=== PATIENT | male | born 1995 | race Caucasian/White ===

== ENCOUNTER 2016-10-09 00:05 | Emergency (ER) | payer BC ==
[~2016-10-09] VITALS: Ht 188 cm; Wt 131.4 kg
[2016-10-09 00:07] VITALS: TEMP 36.8; Ht 188 cm; Wt 131.4 kg
[2016-10-09] MEDS ORDERED: DiphenhydrAMINE HCL 50 MG/ML VIAL IV STA (00:26)
[2016-10-09] MEDS ORDERED: KETOROLAC TROMETHAMINE 30 MG/ML VIAL IV STA (00:26)
[2016-10-09] MEDS ORDERED: METOCLOPRAMIDE HCL INJ 5 MG/ML 2 ML VIAL IV STA (00:26)
[2016-10-09 00:44] VITALS: O2SAT 96
[2016-10-09 00:50] LABS: BASO % 0.3 %; BASO ABS # 0.02 K/uL (0-0.2); COMPLETE YES; EOS % 3.4 %; HEMATOCRIT 43.6 % (42-52); IG% 0.3 %; LYMPH % 34.8 %; LYMPH ABS # 2.07 K/uL (1.2-3.4); MEAN CELL VOLUME 83.2 fL (80-100); MEAN PLATELET VOLUME 9.5 fL (7.4-10.4); MONO % 9.6 %; NEUT % 51.6 %; PLATELET COUNT 199 K/uL (130-400); RED BLOOD COUNT 5.24 M/uL (4.7-6.1); WHITE BLOOD COUNT 5.94 K/uL (4.8-10.8)
[2016-10-09 01:07] LABS: BUN/CREATININE RATIO 20.8 (10-20); CALCIUM 8.5 mg/dl (8.5-10.1); CREATININE 0.81 mg/dl (0.60-1.40); MAGNESIUM 2.1 mg/dl (1.8-2.4)
[2016-10-09 01:18] LABS: THYROID STIMULATING HORMONE 3.24 uIu/ml (0.300-4.500)
[2016-10-09] MEDS ORDERED: BUSP-8 PO (01:34)
[2016-10-09 01:50] LABS: LYME DISEASE AB IGG NEG (NEG); LYME DISEASE AB IGM NEG (NEG)
--- NOTE | 2016-10-09 02:08 | EMERGENCY ROOM VISIT NOTE ---
History First contact with patient: 00:11 Chief Complaint: BACK PAIN Stated Complaint: BACK PAIN History of Present Illness The patient is a 21 year old male who presents to the Emergency Room with complaints of mid to low back pain for the past several days described as aching , ranging in severity 8 out of 10 that is worse with movement and better with rest. 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 This is found incidentally on MRI when he was a child. Patient also complains of intermittent right arm and left arm tingling and weakness for the past several weeks. Patient states he was walking at work and his arm went weak and he went into the wall. This lasted briefly. This happened a few times. Patient has no numbness or tingling currently. Patient denies chest pain, dyspnea, fever, chills, cough, congestion, nausea, vomiting, diarrhea, radiating pain, IV drug abuse, tick bites, weight loss, night sweats, joint pains, rashes. He is tolerating by mouth fluids and food. Review of Systems See HPI for pertinent positives & negatives. A total of 10 systems reviewed and were otherwise negative. Past Medical/Surgical History Reflex sympathetic dystrophy Social History Smoking Status: Former Smoker Alcohol Use: none Drug Use: none Marital Status: in relationship Housing Status: lives with significant other Occupation Status: employed Current/Historical Medications Scheduled PRN Buspirone Hcl (Buspirone Hcl), 1 TAB PO TID PRN for Anxiety Allergies Coded Allergies: No Known Allergies (Verified , 10/09/16) Physical Exam Vital Signs Date Time Temp Pulse Resp B/P Pulse Ox O2 Delivery O2 Flow Rate FiO2 10/09/16 00:44 96 Room Air 10/09/16 00:42 52 10/09/16 00:34 97 Room Air 10/09/16 00:07 36.8 58 18 132/68 95 Room Air Physical Exam VITALS: Vitals are noted on the nurse's note and reviewed by myself. Vital signs stable. GENERAL: Pleasant male ambulate without difficulties, in no acute distress, nondiaphoretic, well-developed well-nourished. SKIN: The skin was without rashes, erythema, edema, or bruising. There is no tenting of the skin. Capillary reflex less than 2 seconds. HEAD: Normocephalic atraumatic. EARS: External auditory canals clear, tympanic membranes pearly fernandez without erythema or effusion bilaterally. EYES: Pupils equal round and reactive to light and accommodation. Conjunctivae without injection, sclerae without icterus. Extraocular movements intact. NOSE: Patent, turbinates without inflammation or discharge. MOUTH: Mucous membranes moist. Pharynx without erythema or exudate. Uvula midline. Airway patent. Tongue does not deviate. NECK: Supple without nuchal rigidity. No lymphadenopathy. No thyromegaly. Cervical spine is nontender. No JVD. HEART: Regular rate and rhythm without murmurs gallops or rubs. LUNGS: Clear to auscultation bilaterally without wheezes, rales or rhonchi. No dullness to percussion. No retractions or accessory muscle use. ABDOMEN: Positive bowel sounds x 4. Normal tympanic percussion. Soft, nontender, without masses or organomegaly. Clancy sign negative. No guarding or rebound tenderness. MUSCULOSKELETAL: No muscle atrophy, erythema, or edema noted. 5 out of 5 strength throughout, minimal diffuse thoracic and lumbar tenderness on exam without step-offs. Negative straight leg raise bilaterally. Patient can walk on toes and heels. NEURO: Patient was alert and oriented to person place and time. Normal sensation to light and sharp touch. No focal neurological deficits. Cranial nerves II through XII grossly intact. No pronator drift. Cerebellar exam intact. +2 patellar reflexes bilaterally. Medical Decision & Procedures Laboratory Results 10/09/16 00:40 Red Blood Count 5.24, Mean Corpuscular Volume 83.2, Mean Corpuscular Hemoglobin 30.0, Mean Corpuscular Hemoglobin Concent 36.0, Mean Platelet Volume 9.5, Neutrophils (%) (Auto) 51.6, Lymphocytes (%) (Auto) 34.8, Monocytes (%) (Auto) 9.6, Eosinophils (%) (Auto) 3.4, Basophils (%) (Auto) 0.3, Neutrophils # (Auto) 3.06, Lymphocytes # (Auto) 2.07, Monocytes # (Auto) 0.57, Eosinophils # (Auto) 0.20, Basophils # (Auto) 0.02 10/09/16 00:40 Test 10/09/16 00:40 White Blood Count 5.94 K/uL (4.8-10.8) Red Blood Count 5.24 M/uL (4.7-6.1) Hemoglobin 15.7 g/dL (14.0-18.0) Hematocrit 43.6 % (42-52) Mean Corpuscular Volume 83.2 fL (80-100) Mean Corpuscular Hemoglobin 30.0 pg (25-34) Mean Corpuscular Hemoglobin Concent 36.0 g/dl (32-36) Platelet Count 199 K/uL (130-400) Mean Platelet Volume 9.5 fL (7.4-10.4) Neutrophils (%) (Auto) 51.6 % Lymphocytes (%) (Auto) 34.8 % Monocytes (%) (Auto) 9.6 % Eosinophils (%) (Auto) 3.4 % Basophils (%) (Auto) 0.3 % Neutrophils # (Auto) 3.06 K/uL (1.4-6.5) Lymphocytes # (Auto) 2.07 K/uL (1.2-3.4) Monocytes # (Auto) 0.57 K/uL (0.11-0.59) Eosinophils # (Auto) 0.20 K/uL (0-0.5) Basophils # (Auto) 0.02 K/uL (0-0.2) RDW Standard Deviation 39.7 fL (36.4-46.3) RDW Coefficient of Variation 13.2 % (11.5-14.5) Immature Granulocyte % (Auto) 0.3 % Immature Granulocyte # (Auto) 0.02 K/uL (0.00-0.02) Anion Gap 8.0 mmol/L (3-11) Est Creatinine Clear Calc Drug Dose 206.2 ml/min Estimated GFR () 146.2 Estimated GFR (Non- 126.2 BUN/Creatinine Ratio 20.8 (10-20) Calcium Level 8.5 mg/dl (8.5-10.1) Magnesium Level 2.1 mg/dl (1.8-2.4) Total Bilirubin 0.5 mg/dl (0.2-1) Direct Bilirubin 0.1 mg/dl (0-0.2) Aspartate Amino Transf (AST/SGOT) 26 U/L (15-37) Alanine Aminotransferase (ALT/SGPT) 64 U/L (12-78) Alkaline Phosphatase 90 U/L (45-117) Total Protein 7.0 gm/dl (6.4-8.2) Albumin 4.0 gm/dl (3.4-5.0) Thyroid Stimulating Hormone (TSH) 3.240 uIu/ml (0.300-4.500) Lyme Disease IgG Antibody NEG (NEG) Lyme Disease IgM Antibody NEG (NEG) Medications Administered Medications (Trade) Dose Ordered Sig/Dexter Route Start Time Stop Time Status Last Admin Dose Admin Ketorolac Tromethamine (Toradol Inj) 30 mg NOW STAT IV 10/09/16 00:26 10/09/16 00:30 DC 10/09/16 00:46 30 MG Diphenhydramine HCl (Benadryl Inj) 25 mg NOW STAT IV 10/09/16 00:26 10/09/16 00:30 DC 10/09/16 00:46 25 MG Metoclopramide HCl (Reglan Inj) 10 mg NOW STAT IV 10/09/16 00:26 10/09/16 00:30 DC 10/09/16 00:46 10 MG ED Course Prior records/ancillary studies reviewed and summarized above. Nursing notes reviewed. Additional history obtained from [facility]. The patient's history was concerning for back pain and intermittent tingling. Differential diagnosis: Etiologies such as conus medullaris syndrome, cauda equina syndrome, epidural abscess, epidural hematoma, fracture, subluxation, UTI, pyelonephritis, strain, muscular spasm, metabolic, infection, hypo/hyperglycemia, electrolyte abnormalities, cardiac sources, intracerebral event, toxicologic, neurologic, as well as others were entertained. Physical examination: As above. ER treatment provided: IV Lock Toradol, Reglan, Benadryl On reassessment the patient felt better. Diagnostics interpretation by me: The labs revealed mild hyperglycemia without DKA. Euthyroid Imaging studies: CT T SPINE: No evidence of acute or healing fracture or malalignment. No suspicious lytic or sclerotic lesions of bone. No critical central canal stenosis CT L SPINE: No acute or healing fracture or malalignment. No critical central canal stenosis. No suspicious lytic or sclerotic lesions of bone. Radiologist: Kev Garcia M.D. CT HEAD: No ICH, mass effect or edema. No evidence of acute cortical stroke. No midline shift or hydrocephalus. Visualized sinuses show scattered mucosal thickening and mastoid air cells are clear. Radiologist: Kev Garcia M.D. Exam and history seem consistent with back strain and intermittent tingling. Patient had unremarkable workup as above. He was neurovascularly and neurologically intact. He was ambulating without difficulties. He was advised to follow-up family care in a few days and was given a list of family care doctors for further evaluation and treatment for his ongoing symptoms. He was advised to return to the ER immediately for inability to walk, severe pain, fevers, worsening signs or symptoms or as needed. By the evaluation outlined above emergent etiologies such as infection, electrolyte abnormalities, cardiac sources, intracerebral event, toxologic, neurologic, abnormalities blood glucose, metabolic, as well as others were deemed relatively unlikely. The pt informed about the findings as listed above. All questions were answered and pleased with the treatment. Return instructions were outlined and the patient was discharged in stable condition. Outpatient prescription management: motrin Referral: The patient was referred back to primary care physician for follow-up in 2 to 3 days for a recheck of the current condition. Case reviewed with my attending Medical Decision As above Impression Primary Impression: Hyperglycemia Additional Impression: Tingling Departure Information Dispostion Home / Self-Care Condition GOOD Referrals No Doctor, Assigned (PCP) Patient Instructions My [facility] Additional Instructions Your blood sugar was slightly elevated today. Recheck this with your family care. Discharge comes back painDO NOT drive, drink alcohol, operate machinery, or perform dangerous activities today. You were given medications in the ER that can affect your ability to safely function or operate a vehicle. Ibuprofen(Motrin, Advil) may be used for fever or pain. Use 600mg every six hours as needed. Take with food. Avoid using more than 2400mg in a 24 hour period. Do not use 2400mg per day for more than three consecutive days without physician direction. Prolonged inappropriate use can lead to stomach upset or ulcers. This medication can be taken if you need to drive, work, or perform activities which may be dangerous when taking narcotic pain medication. (AND/OR) Acetaminophen(Tylenol) may be used for fever or pain. Use 1000mg every six hours as needed. Avoid using more than 3000mg in a 24 hour period. This medication can be taken if you need to drive, work, or perform activities which may be dangerous when taking narcotic pain medication. Rest and avoid heavy lifting until your symptoms resolve and then gradually return to full activity. A good rule of thumb is if it hurts your back to perform a certain activity, then it should be avoided until you are healthy again. A heating pad, warm compresses, or a hot shower may help with tight muscles and can be done several times a day as needed. Continue current medications. Return to the ER immediately for any numbness, tingling, severe pain, loss of control of your bowels or bladder, inability to walk, or as needed. Follow up with your primary care physician/orthopedics spine within 3-5 days for a recheck of your current condition. Problem Qualifiers
[2016-10-09] MEDS ORDERED: MOTRIN HOME PACK 600 MG (4)BTL PO ONE (02:15)
[2016-10-09 02:33] VITALS: BP 139/66; PULSE 61; O2SAT 95
--- NOTE | 2016-10-09 06:33 | DIAGNOSTIC IMAGING REPORT ---
HEAD CT NONCONTRAST CT DOSE: 537.48 mGy.cm HISTORY: Neuropathy intermittent arm tingling TECHNIQUE: Multiaxial CT images of the head were performed without the use of intravenous contrast. Comparison: None. Findings: The paranasal sinuses and mastoid air cells are clear. The calvarium and skull base are intact. The ventricles and sulci are within normal limits. There is no mass, hematoma, midline shift, or acute infarct. Impression: No acute intracranial abnormality. Electronically signed by: Robbin Todd M.D. 10/09/2016 6:32 AM Dictated Date/Time: 10/09/2016 6:32 AM
--- NOTE | 2016-10-09 06:34 | DIAGNOSTIC IMAGING REPORT ---
LUMBAR SPINE CT CT DOSE: 2990.79 mGy.cm HISTORY: Pain mid/low back pain TECHNIQUE: Multiaxial CT images of the lumbar spine were performed and reformatted in the sagittal and coronal plane without the use of contrast. COMPARISON: None. FINDINGS: No fractures. No subluxation. Paraspinal soft tissues are unremarkable. IMPRESSION: No fractures within the lumbar spine. Electronically signed by: Robbin Todd M.D. 10/09/2016 6:33 AM Dictated Date/Time: 10/09/2016 6:33 AM
--- NOTE | 2016-10-09 07:04 | DIAGNOSTIC IMAGING REPORT ---
THORACIC SPINE CT CT DOSE: HISTORY: Pain mid/low back pain TECHNIQUE: Multiaxial CT images of the thoracic spine were performed and reformatted in the sagittal and coronal plane without the use of contrast. COMPARISON: None. FINDINGS: No fractures. No subluxation. Paraspinal soft tissues are unremarkable. IMPRESSION: No fractures within the thoracic spine. Electronically signed by: Robbin Todd M.D. 10/09/2016 7:02 AM Dictated Date/Time: 10/09/2016 6:59 AM
== END 2016-10-09 02:34 | disposition home or self-care (01) ==
LOC: C.EDB 00:06
DX: R73.9 Hyperglycemia, unspecified (principal); R20.2 Paresthesia of skin; G90.50 Complex regional pain syndrome I, unspecified; Z87.891 Personal history of nicotine dependence

== ENCOUNTER 2016-10-24 22:03 | Emergency (ER) | payer BC ==
[~2016-10-24] VITALS: Ht 188 cm; Wt 128.6 kg
[~2016-10-24 22:03] MED LIST: BUSP-8 PO
[2016-10-24 22:06] VITALS: TEMP 36.7; Ht 188 cm; Wt 128.6 kg
[2016-10-24] MEDS ORDERED: KETOROLAC TROMETHAMINE 30 MG/ML VIAL IV STA (22:17)
[2016-10-24 22:28] VITALS: O2SAT 94
[2016-10-24] MEDS ORDERED: BUSP-8 PO (22:30)
[2016-10-24 22:38] LABS: BASO % 0.3 %; BASO ABS # 0.02 K/uL (0-0.2); COMPLETE YES; EOS % 2.4 %; HEMATOCRIT 41.9 % (42-52); IG% 0.2 %; LYMPH % 28.4 %; LYMPH ABS # 1.78 K/uL (1.2-3.4); MEAN CELL VOLUME 81.5 fL (80-100); MEAN CORPUSCULAR HEMOGLOBIN 29.6 pg (25-34); MEAN CORPUSCULAR HGB CONC 36.3 g/dl (32-36); MEAN PLATELET VOLUME 9.2 fL (7.4-10.4); MONO % 6.5 %; NEUT % 62.2 %; PLATELET COUNT 199 K/uL (130-400); RED BLOOD COUNT 5.14 M/uL (4.7-6.1); WHITE BLOOD COUNT 6.27 K/uL (4.8-10.8)
[2016-10-24 23:04] LABS: ALT/SGPT 55 U/L (12-78); AST/SGOT 29 U/L (15-37); BLOOD UREA NITROGEN 13 mg/dl (7-18); BUN/CREATININE RATIO 14.8 (10-20); C-REACTIVE PROTEIN < 0.29 mg/dl (0-0.29); CALCIUM 8.3 mg/dl (8.5-10.1); CARBON DIOXIDE 26 mmol/L (21-32); CHLORIDE 108 mmol/L (98-107); CREATININE 0.87 mg/dl (0.60-1.40); GLUCOSE 92 mg/dl (70-99); POTASSIUM 3.8 mmol/L (3.5-5.1); SODIUM 145 mmol/L (136-145); URIC ACID 7.7 mg/dl (2.6-7.2)
[2016-10-24 23:06] LABS: ALB/GLOB RATIO 1.4 (0.9-2); ALKALINE PHOSPHATASE 76 U/L (45-117)
[2016-10-25 00:02] LABS: LYME DISEASE AB IGG NEG (NEG); LYME DISEASE AB IGM NEG (NEG)
[2016-10-25 00:55] VITALS: BP 123/63; PULSE 74; O2SAT 96
--- NOTE | 2016-10-25 05:07 | EMERGENCY ROOM VISIT NOTE ---
History First contact with patient: 22:13 Chief Complaint: KNEEPAIN Stated Complaint: SWELLING,REDNESS,NUMBNESS TENDERNESS PAIN R KNEE History of Present Illness The patient is a 21 year old male who presents to the Emergency Room with complaints of right knee pain and swelling for the past few days who does a lot of kneeling at work. No direct injury to the knee. Patient is concerned he has a blood clot. Patient does chew tobacco. No smoking of cigarettes. No recent travel. Patient denies chest pain, dyspnea, fever, chills, numbness, tingling, injury to the area, radiating pain. He is able to ambulate. He describes the pain as aching, ranging in severity 3 out of 10 worse with movement and better with rest. It does not radiate. Review of Systems See HPI for pertinent positives & negatives. A total of 10 systems reviewed and were otherwise negative. Past Medical/Surgical History Diabetes Social History Smoking Status: Former Smoker Alcohol Use: none Drug Use: none Marital Status: in relationship Housing Status: lives with significant other Occupation Status: employed Current/Historical Medications Scheduled Buspirone Hcl (Buspirone Hcl), 10 MG PO BID Allergies Coded Allergies: No Known Allergies (Verified , 10/24/16) Physical Exam Vital Signs Date Time Temp Pulse Resp B/P Pulse Ox O2 Delivery O2 Flow Rate FiO2 10/25/16 00:55 74 20 123/63 96 10/24/16 23:42 63 18 107/59 95 Room Air 10/24/16 22:33 72 10/24/16 22:28 94 Room Air 10/24/16 22:06 36.7 77 16 135/70 97 Room Air Pain Rating (0-10): 3.0 Physical Exam VITALS: Vitals are noted on the nurse's note and reviewed by myself. Vital signs stable. GENERAL: Pleasant male, in no acute distress, nondiaphoretic, well-developed well-nourished. SKIN: Capillary reflex less than 2 seconds. HEENT: Normocephalic. PERRLA. EOMI. Nares patent. Mucous membranes moist. Neck is supple without nuchal rigidity. HEART: Regular rate and rhythm without murmurs gallops or rubs. LUNGS: Clear to auscultation bilaterally without wheezes, rales or rhonchi. No retractions or accessory muscle use. ABDOMEN: Positive bowel sounds x 4. Normal tympanic percussion. Soft, nontender, without masses or organomegaly. Clancy sign negative. No guarding or rebound tenderness. MUSCULOSKELETAL: No gross musculoskeletal defects. No pedal edema. No calf tenderness. Right knee the prepatella bursa erythematous and edematous concerning for bursitis, right knee full range of motion. Negative Colt's. Negative drawer's. No laxity with valgus or varus stressing NEURO: Patient was alert and oriented to person place and time. Normal sensation to light and sharp touch. No focal neurological deficits. Medical Decision & Procedures Laboratory Results 10/24/16 22:30 Red Blood Count 5.14, Mean Corpuscular Volume 81.5, Mean Corpuscular Hemoglobin 29.6, Mean Corpuscular Hemoglobin Concent 36.3, Mean Platelet Volume 9.2, Neutrophils (%) (Auto) 62.2, Lymphocytes (%) (Auto) 28.4, Monocytes (%) (Auto) 6.5, Eosinophils (%) (Auto) 2.4, Basophils (%) (Auto) 0.3, Neutrophils # (Auto) 3.90, Lymphocytes # (Auto) 1.78, Monocytes # (Auto) 0.41, Eosinophils # (Auto) 0.15, Basophils # (Auto) 0.02 10/24/16 22:30 Test 10/24/16 22:30 White Blood Count 6.27 K/uL (4.8-10.8) Red Blood Count 5.14 M/uL (4.7-6.1) Hemoglobin 15.2 g/dL (14.0-18.0) Hematocrit 41.9 % (42-52) Mean Corpuscular Volume 81.5 fL (80-100) Mean Corpuscular Hemoglobin 29.6 pg (25-34) Mean Corpuscular Hemoglobin Concent 36.3 g/dl (32-36) Platelet Count 199 K/uL (130-400) Mean Platelet Volume 9.2 fL (7.4-10.4) Neutrophils (%) (Auto) 62.2 % Lymphocytes (%) (Auto) 28.4 % Monocytes (%) (Auto) 6.5 % Eosinophils (%) (Auto) 2.4 % Basophils (%) (Auto) 0.3 % Neutrophils # (Auto) 3.90 K/uL (1.4-6.5) Lymphocytes # (Auto) 1.78 K/uL (1.2-3.4) Monocytes # (Auto) 0.41 K/uL (0.11-0.59) Eosinophils # (Auto) 0.15 K/uL (0-0.5) Basophils # (Auto) 0.02 K/uL (0-0.2) RDW Standard Deviation 37.6 fL (36.4-46.3) RDW Coefficient of Variation 12.7 % (11.5-14.5) Immature Granulocyte % (Auto) 0.2 % Immature Granulocyte # (Auto) 0.01 K/uL (0.00-0.02) Erythrocyte Sedimentation Rate 2 mm/hr (0-14) Anion Gap 11.0 mmol/L (3-11) Est Creatinine Clear Calc Drug Dose 189.8 ml/min Estimated GFR () 142.0 Estimated GFR (Non- 122.5 BUN/Creatinine Ratio 14.8 (10-20) Uric Acid 7.7 mg/dl (2.6-7.2) Calcium Level 8.3 mg/dl (8.5-10.1) Total Bilirubin 0.5 mg/dl (0.2-1) Aspartate Amino Transf (AST/SGOT) 29 U/L (15-37) Alanine Aminotransferase (ALT/SGPT) 55 U/L (12-78) Alkaline Phosphatase 76 U/L (45-117) C-Reactive Protein < 0.29 mg/dl (0-0.29) Total Protein 6.8 gm/dl (6.4-8.2) Albumin 4.0 gm/dl (3.4-5.0) Globulin 2.8 gm/dl (2.5-4.0) Albumin/Globulin Ratio 1.4 (0.9-2) Lyme Disease IgG Antibody NEG (NEG) Lyme Disease IgM Antibody NEG (NEG) Medications Administered Medications (Trade) Dose Ordered Sig/Dexter Route Start Time Stop Time Status Last Admin Dose Admin Ketorolac Tromethamine (Toradol Inj) 30 mg NOW STAT IV 10/24/16 22:17 10/24/16 22:19 DC 10/24/16 22:31 30 MG ED Course Prior records reviewed and summarized above. Triage Nursing notes reviewed. Additional history obtained from the family. The patient's history was concerning for swelling and pain in the leg. Differential diagnosis: Etiologies such as DVT, lymes, bursitis, strain, sprain, musculoskeletal, infection, joint effusion, trauma, lymphedema, idiopathic, CHF, as well as others were entertained.. Physical examination: The physical examination revealed no signs of infection. Neurovascularly intact. ER treatment provided: Dax wrap, crutches. Neurovascular status is rechecked after placement and is intact On reassessment the patient felt better. Diagnostics interpreted by me: The labs revealed no leukocytosis. Negative Lyme, negative sedimentation rate and CRP Imaging studies: Ultrasound negative for DVT per radiology, knee x-ray with no acute fracture, effusion or dislocation per my interpretation This appears to be consistent with prepatellar bursitis. Patient does a lot of repetitive kneeling. This pain and swelling is localized over this area. He is advised to avoid kneeling on the area and use Dax wrap and crutches as needed for comfort. He was advised to follow-up orthopedics in a few days or here in the ER sooner for severe pain, numbness, tingling, fevers, worsening signs or symptoms or as needed. Patient had no signs of a septic joint. He is well-appearing. By the evaluation outlined above emergent etiologies such as DVT, septic joint, trauma, infection, CHF, as well as others were deemed relatively unlikely. The pt informed about the findings as listed above. All questions were answered and pleased with the treatment. Return instructions were outlined and the patient was discharged in stable condition. Referral: The patient was referred back to their primary care physician or orthopedics for follow-up in 2 to 3 days for a recheck of the current condition. Case reviewed with my attending Medical Decision As above Impression Primary Impression: Prepatellar bursitis, right knee Departure Information Dispostion Home / Self-Care Condition GOOD Referrals Brian Hernandez D.O. Forms HOME CARE DOCUMENTATION FORM, IMPORTANT VISIT INFORMATION Patient Instructions My [facility] [address], ED Bursitis Additional Instructions Avoid kneeling on your knee. Avoid excessive squatting. Ibuprofen(Motrin, Advil) may be used for fever or pain. Use 600mg every six hours as needed. Take with food. Avoid using more than 2400mg in a 24 hour period. Do not use 2400mg per day for more than three consecutive days without physician direction. Prolonged inappropriate use can lead to stomach upset or ulcers. This medication can be taken if you need to drive, work, or perform activities which may be dangerous when taking narcotic pain medication. (AND/OR) Acetaminophen(Tylenol) may be used for fever or pain. Use 1000mg every six hours as needed. Avoid using more than 3000mg in a 24 hour period. This medication can be taken if you need to drive, work, or perform activities which may be dangerous when taking narcotic pain medication. Ice compresses for 20 minutes at a time four times daily for 2-3 days. Use the crutches as instructed. Rest and elevate your injury. Wear Dax wrap until pain subsides. Do not have it so tight that you cannot feel your foot. Continue current medications. Return to the ER immediately for any numbness, tingling, severe pain, extreme swelling in the extremity or as needed. Call Orthopedics in 3-5 days if symptoms persist to arrange follow up for your injury.
--- NOTE | 2016-10-25 06:32 | DIAGNOSTIC IMAGING REPORT ---
RIGHT KNEE 3 VIEWS CLINICAL HISTORY: Right knee pain and swelling. COMPARISON: None FINDINGS: Alignment of the right knee is anatomic. There is no fracture or osseous lesion. Joint spaces are preserved. There is no definite right knee joint effusion. There is an equivocal right knee joint effusion. IMPRESSION: No significant abnormality of the right knee. Equivocal right knee joint effusion. Electronically signed by: Bright Pro M.D. 10/25/2016 6:31 AM Dictated Date/Time: 10/25/2016 6:30 AM
--- NOTE | 2016-10-25 07:20 | DIAGNOSTIC IMAGING REPORT ---
RIGHT LOWER EXTREMITY VENOUS DOPPLER CLINICAL HISTORY: Right leg swelling and redness. COMPARISON STUDY: No previous studies for comparison. TECHNIQUE: Sonography of the deep venous system of the right lower extremity was performed. Compression and augmentation were evaluated. FINDINGS: The common femoral, superficial femoral and popliteal veins were compressible. Augmentation was normal. Flow was shown within the deep calf vessels although the calf vessels are suboptimally assessed on this exam. IMPRESSION: No evidence of deep venous thrombus within the right lower extremity. Electronically signed by: Bright Pro M.D. 10/25/2016 7:18 AM Dictated Date/Time: 10/25/2016 7:17 AM
== END 2016-10-25 00:56 | disposition home or self-care (01) ==
LOC: C.EDB 22:05 → C.EDC 10-25 00:56
DX: M70.41 Prepatellar bursitis, right knee (principal); F17.220 Nicotine dependence, chewing tobacco, uncomplicated; E11.9 Type 2 diabetes mellitus without complications; Z79.899 Other long term (current) drug therapy

== ENCOUNTER 2017-06-05 16:45 | Emergency (ER) | payer BC ==
[~2017-06-05] VITALS: Ht 188 cm; Wt 134.5 kg
[2017-06-05 16:56] VITALS: TEMP 36.6; Ht 188 cm; Wt 134.5 kg
[2017-06-05] MEDS ORDERED: LIDOCAINE/EPINEPHRINE 1% 20 ML VIAL INFIL ONE (17:15)
[2017-06-05] MEDS ORDERED: CEPHALEXIN MONOHYDRATE 250 MG CAP PO ONE (17:45)
[2017-06-05] MEDS ORDERED: SULFAMETHOXAZOLE/TRIMETHOPRIM DS 800/160MG TAB PO ONE (17:45)
[2017-06-05] MEDS ORDERED: CEPH500C PO (17:46)
[2017-06-05] MEDS ORDERED: SULF800T23 PO (17:46)
--- NOTE | 2017-06-05 17:51 | EMERGENCY ROOM VISIT NOTE ---
ED Visit Note First contact with patient: 16:59 CHIEF COMPLAINT: Infection on the inner right thigh HISTORY OF PRESENT ILLNESS: This 22-year-old male patient noticed a hard tender area in the right inner thigh area yesterday. He states it started like a pimple or ingrown hair, and has been slowly getting larger, more painful and tender. No fever, chills, or loss of appetite. There has been no drainage from the area. There was no known injury to the area preceding the infection. Patient does note that his thighs rub together a lot, and he sometimes gets chafing in this area. He denies any history of previous abscesses. He denies any history of MRSA. He denies any abdominal pain, back pain, pelvic or testicular pain, urinary symptoms, chest pain, shortness of breath, headaches, dizziness or syncope, or rash. REVIEW OF SYSTEMS: A 10 point review of systems was reviewed with the patient with pertinent positives and negatives as per history of present illness. All else were negative. PMH: The patient is healthy; there is no significant medical or surgical history. SOCIAL HISTORY: Patient lives at home with his . He denies tobacco use. PHYSICAL EXAM: Vital Signs: Reviewed Nurse's notes. Afebrile. CONSTITUTIONAL: Pleasant and cooperative. No acute distress, nontoxic appearing. Well hydrated and well nourished. HEENT: Normocephalic, atraumatic. Pupils equal, round and reactive to light, EOMI. TMs normal. Pharynx normal. Moist mucus membranes NECK: Supple, full active range of motion without discomfort. RESPIRATORY: Clear to auscultation bilaterally with no wheezing, crackles, rhonchi or stridor. Equal expansion bilaterally. CARDIOVASCULAR: Regular rate and rhythm with no murmurs, rubs or gallops. Normal peripheral perfusion. No edema. GASTROINTESTINAL: Soft, nontender, nondistended. No palpable masses or HSM. Bowel sounds present in all quadrants. MUSCULOSKELETAL: Full range of motion of all joints without discomfort. INTEGUMENTARY: There is an indurated area along the right medial upper thigh, approximately 3 finger breadths below the inguinal crease, which measures about 6 cm in diameter. It is fluctuant at the center, but there is no pointing or drainage. There is a zone of inflammation around it, erythematous, warm to the touch, and tender to palpation. No lymphangitis. No crepitus. NEUROLOGIC: Alert and oriented X 4 with normal affect. Normal speech. Normal gait observed. EMERGENCY DEPARTMENT COURSE: I examined the patient. Differential diagnosis includes abscess, cyst, cellulitis, MRSA, Kenny's gangrene. There is small area of cellulitis to the right inner thigh, below the inguinal crease, with central fluctuance consistent with abscess. There is no scrotal involvement, no tenderness of the abdomen or pelvic region, no crepitus, and no pain out of proportion, I do not suspect Kenny's at this time. I discussed risks and benefits of performing the procedure and obtained verbal consent from the patient prior to performing incision and drainage of the abscess. Using saline and Betadine cleansing, lidocaine anesthesia, and sterile technique, the abscess cavity was incised with a #11 scalpel blade. Purulent and bloody material drained and more was expressed. The abscess cavity was copiously flushed with normal saline and Betadine, and a sterile iodoform gauze drain was inserted into the wound, and the area was covered with a sterile bandage. Hemostasis was achieved. Patient tolerated the procedure well with no known complications. Rx sent pharmacy for Bactrim and Keflex to treat the cellulitis , first dose given in the ED. Patient was instructed on wound care and follow- up, as well as worrisome signs/symptoms that should prompt immediate return for reevaluation, he verbalized understanding and was agreeable to the plan. Patient was discharged home in stable condition and ambulatory. Medication Reconciliation: I attest that I have personally reviewed the patient' s current medication list. Blood pressure screening: The patient was found to have normal blood pressure on screening and does not require follow-up for repeat blood pressure check. I discussed the patient with Dr. Lockwood, who agrees with my assessment and plan. Current/Historical Medications Scheduled Cephalexin Monohydrate (Keflex), 500 MG PO QID Sulfa/Trimethoprim (Bactrim Ds 800MG/160MG), 1 TAB PO BID Scheduled PRN Buspirone Hcl (Buspirone Hcl), 10 MG PO TID PRN for Anxiety Allergies Coded Allergies: No Known Allergies (Verified , 06/05/17) Vital Signs Date Time Temp Pulse Resp B/P (MAP) Pulse Ox O2 Delivery O2 Flow Rate FiO2 06/05/17 18:13 60 16 110/70 96 06/05/17 16:56 36.6 51 18 131/65 96 Room Air Medications Administered Medications (Trade) Dose Ordered Sig/Dexter Route Start Time Stop Time Status Last Admin Dose Admin Cephalexin Monohydrate (Keflex Cap) 500 mg NOW ONCE PO 06/05/17 17:45 06/05/17 17:46 DC 06/05/17 18:00 500 MG Trimethoprim/ Sulfamethoxazole (Septra Ds 800/ 160MG Tab) 1 tab NOW ONCE PO 06/05/17 17:45 06/05/17 17:46 DC 06/05/17 17:59 1 TAB Departure Information Impression Primary Impression: Cellulitis of right thigh Additional Impression: Abscess of right thigh Dispostion Home / Self-Care Condition GOOD Prescriptions Cephalexin Monohydrate (Keflex) 500 Mg Cap 500 MG PO QID for 10 Days, #40 CAP Prov: Danielle Lucas CRNP 06/05/17 Sulfa/Trimethoprim (Bactrim Ds 800MG/160MG) Tab 1 TAB PO BID for 10 Days, #20 TAB Prov: Danielle Lucas CRNP 06/05/17 Referrals No Doctor, Assigned (PCP) Patient Instructions ED Abscess IandD, ED Infec Skin Cellulitis, [facility] Additional Instructions You were seen in the Emergency Department for abscess and cellulitis on your right inner thigh, and had incision and drainage of the abscess today. You will NEED to return to the Emergency Department or see your primary care provider to have the packing removed/changed in 48 hours. This packing is NOT dissolvable and WILL need to be removed by a health care provider. Try to leave the packing in place until you return to be seen in 2 days. You were prescribed Keflex and Bactrim to be taken for 10 days. Take as prescribed. Both of these medications are antibiotics. Stop these medications and contact a medical provider if you were to develop any significant adverse side effects including: wheezing, shortness of breath, passing out, vomiting, or a diffuse rash. Always take antibiotics as directed and COMPLETE the ENTIRE course regardless of the improvement of your symptoms. Proper wound care is essential for adequate wound healing and infection prevention. You can shower and clean the wound with soap and water. Do not scour over the wound. Pat dry with a towel. Do not submerse the wound (i.e. bathe or dish wash) until the sutures have been removed. You can use an antibiotic ointment with a dressing over the wound for the next 3-4 days. After this time you may leave the wound dry and open to the air. If crust develops over the wound you can use a Q-tip to apply a 1:1 peroxide:water solution to clean the wound. As with any laceration you may have received nerve damage to the surrounding tissues. This damage may or may not be permanent. For pain control, you can use the following [id number] medicines (if >12 yo): - Extra strength (500mg/tab) Tylenol (acetaminophen) 1-2 tabs every 6-8 hours as needed. Do not exceed 6 tablets in a 24 hour period. Avoid taking more than 3 grams (3000 mg) of Tylenol per day. This includes any other sources of acetaminophen you may take on a regular basis. - Regular strength (200 mg/tab) Advil (ibuprofen) 3 tabs every 6-8 hours as needed. Do not exceed a dose of 2400 mg per day. Look for signs of worsening infection of the wound including: increased pain, swelling, spreading redness, foul discharge, streaking, abdominal or groin pain , or fevers > 101. If any of these are noticed you should return to the Emergency Department for further assessment and treatment. Problem Qualifiers
[2017-06-05 18:13] VITALS: BP 110/70; PULSE 60; O2SAT 96
--- NOTE | 2017-06-07 13:32 | Pharmacy Progress Note ---
ED Pharmacist Culture FollowUp Date of Service: Jun 07, 2017. Patient was sent home with a prescription for Keflex 500 mg QID x 10 days and Bactrim DS 1 tab BID x 10days. Culture results from deep wound culture grew MSSA. Called patient and informed of culture results, continue keflex 500 mg QID to complete 10 days and can stop taking the Bactrim BID. Patient repeated back understanding to continue keflex and stop bactrim. Patient also asked if I would recommend staying home from work, he is following up with PCP today- I told him to followup with the PCP.
== END 2017-06-05 18:13 | disposition home or self-care (01) ==
LOC: C.EDB 16:45 → C.EDC 18:13
DX: L03.115 Cellulitis of right lower limb (principal); Z86.14 Personal history of Methicillin resistant Staphylococcus aureus infection

== ENCOUNTER 2017-06-08 19:01 | Emergency (ER) | payer BC ==
[~2017-06-08] VITALS: Ht 188 cm; Wt 133.0 kg
[~2017-06-08 19:01] MED LIST changes: +CEPH500C PO; +SULF800T23 PO
[2017-06-08 19:16] VITALS: TEMP 36.8; Ht 188 cm; Wt 133.0 kg
[2017-06-08] MEDS ORDERED: SODIUM CHLORIDE 0.9% 1000ML 1,000 ML IV STA (19:42)
[2017-06-08] MEDS ORDERED: CEFTRIAXONE SOD INJ 1 GM ADDVIAL IV STA (19:42)
[2017-06-08 20:44] LABS: BASO % 0.2 %; BASO ABS # 0.01 K/uL (0-0.2); EOS % 2.9 %; EOS ABS # 0.16 K/uL (0-0.5); HEMATOCRIT 42.8 % (42-52); HEMOGLOBIN 15.6 g/dL (14.0-18.0); IG# 0.02 K/uL (0.00-0.02); LYMPH % 25.7 %; LYMPH ABS # 1.43 K/uL (1.2-3.4); MEAN CELL VOLUME 82.8 fL (80-100); MEAN CORPUSCULAR HEMOGLOBIN 30.2 pg (25-34); MEAN CORPUSCULAR HGB CONC 36.4 g/dl (32-36); MEAN PLATELET VOLUME 9.4 fL (7.4-10.4); MONO % 7.5 %; MONO ABS # 0.42 K/uL (0.11-0.59); NEUT % 63.3 %; NEUT ABS # 3.53 K/uL (1.4-6.5); PLATELET COUNT 200 K/uL (130-400); RED CELL DISTRIBUTION WIDTH SD 39.2 fL (36.4-46.3); WHITE BLOOD COUNT 5.57 K/uL (4.8-10.8)
[2017-06-08 21:03] LABS: ALBUMIN 3.9 gm/dl (3.4-5.0); ALT/SGPT 35 U/L (12-78); BLOOD UREA NITROGEN 14 mg/dl (7-18); CALCIUM 8.6 mg/dl (8.5-10.1); CARBON DIOXIDE 24 mmol/L (21-32); CREATININE 0.98 mg/dl (0.60-1.40); GLUCOSE 94 mg/dl (70-99); LIPASE 83 U/L (73-393); SODIUM 138 mmol/L (136-145)
[2017-06-08 21:06] LABS: ALKALINE PHOSPHATASE 63 U/L (45-117); AST/SGOT 22 U/L (15-37)
[2017-06-08] MEDS ORDERED: KETOROLAC TROMETHAMINE 30 MG/ML VIAL IV STA (21:06)
[2017-06-08 22:44] VITALS: BP 103/72; PULSE 62; O2SAT 97
--- NOTE | 2017-06-08 23:29 | EMERGENCY ROOM VISIT NOTE ---
History Report prepared by Liu: Lara Giraldo Under the Supervision of: Dr. Bird Graf M.D. First contact with patient: 19:33 Chief Complaint: WOUND INFECTION Stated Complaint: NAUSEA,DIZZY,CHILLS,FEVER,OPEN WOUND,SWELLING,CONF History of Present Illness The patient is a 22 year old male who presents to the Emergency Room with complaints of a constant wound infection beginning 1 week ago. The patient states that he was seen here 3 days ago for an abscess on his right thigh. He reports that they drained very little fluid out of it and put packing in it before he was discharged home. He notes that he has been taking his Keflex and Bactrim and has not missed a dose. The patient states that he followed up with his PCP yesterday and they repacked the wound and told him to follow up again in 2 days. Today the patient states that his pain is more severe and the swelling is outside of the marker line. He complains of fever, chills, nausea, diarrhea, difficulty urinating, and pain radiating into his testicle. Source of History: patient Onset: 1 week ago Position: leg (right) Quality: other (wound infection) Timing: constant Associated Symptoms: + fevers, + chills, + nausea, + diarrhea, + urinary symptoms Note: Pt complains of increased swelling and pain. Review of Systems See HPI for pertinent positives & negatives. A total of 10 systems reviewed and were otherwise negative. Past Medical & Surgical Medical Problems: (1) Prepatellar bursitis, right knee Old medical records were reviewed. Nurse's notes were reviewed and I agree with. Family History No pertinent family history stated. Social History Smoking Status: Never Smoker Alcohol Use: none Drug Use: none Marital Status: in relationship Housing Status: lives with significant other Occupation Status: employed Current/Historical Medications Scheduled Cephalexin Monohydrate (Keflex), 500 MG PO QID Sulfa/Trimethoprim (Bactrim Ds 800MG/160MG), 1 TAB PO BID Scheduled PRN Buspirone Hcl (Buspirone Hcl), 10 MG PO TID PRN for Anxiety Allergies Coded Allergies: No Known Allergies (Verified , 06/08/17) Physical Exam Vital Signs Date Time Temp Pulse Resp B/P (MAP) Pulse Ox O2 Delivery O2 Flow Rate FiO2 06/08/17 22:44 62 103/72 97 06/08/17 20:52 64 120/67 97 Room Air 06/08/17 19:16 36.8 101 18 128/74 96 Room Air Physical Exam General: Non-ill appearing young male in no acute distress. HEENT: Normal cephalic atraumatic. Pupils are equal round and reactive to light. Extraocular movements are intact. Oropharynx is pink with moist mucous membranes. No swelling of the mouth lips or tongue. Neck: Supple with a midline trachea. No meningeal signs or stiffness, no JVD or bruits. No Stridor. Chest: Clear to auscultation bilaterally. No wheezes or rhonchi. No increased work of breathing. Heart: regular rate and rhythm. Abdomen: Soft nontender, nondistended without rebound guarding or rigidity. Extremities: No cyanosis clubbing or edema. No calf tenderness or assymetry. Right thigh mild tenderness where the abscess was no significant induration, redness or drainage. There was packing that was removed there is no further drainage or purulence. It appears to be a relatively small abscess cavity. Spine/Back. Non tender to palpation. No CVA tenderness Skin: Good turgor without rashes. Neurologic exam: Cranial nerves two through 12 are intact. Motor and sensation are intact and symmetrical throughout. Medical Decision & Procedures Laboratory Results 06/08/17 20:21 Red Blood Count 5.17, Mean Corpuscular Volume 82.8, Mean Corpuscular Hemoglobin 30.2, Mean Corpuscular Hemoglobin Concent 36.4, Mean Platelet Volume 9.4, Neutrophils (%) (Auto) 63.3, Lymphocytes (%) (Auto) 25.7, Monocytes (%) (Auto) 7.5, Eosinophils (%) (Auto) 2.9, Basophils (%) (Auto) 0.2, Neutrophils # (Auto) 3.53, Lymphocytes # (Auto) 1.43, Monocytes # (Auto) 0.42, Eosinophils # (Auto) 0.16, Basophils # (Auto) 0.01 06/08/17 20:21 Test 06/08/17 20:21 06/08/17 20:36 White Blood Count 5.57 K/uL (4.8-10.8) Red Blood Count 5.17 M/uL (4.7-6.1) Hemoglobin 15.6 g/dL (14.0-18.0) Hematocrit 42.8 % (42-52) Mean Corpuscular Volume 82.8 fL (80-100) Mean Corpuscular Hemoglobin 30.2 pg (25-34) Mean Corpuscular Hemoglobin Concent 36.4 g/dl (32-36) Platelet Count 200 K/uL (130-400) Mean Platelet Volume 9.4 fL (7.4-10.4) Neutrophils (%) (Auto) 63.3 % Lymphocytes (%) (Auto) 25.7 % Monocytes (%) (Auto) 7.5 % Eosinophils (%) (Auto) 2.9 % Basophils (%) (Auto) 0.2 % Neutrophils # (Auto) 3.53 K/uL (1.4-6.5) Lymphocytes # (Auto) 1.43 K/uL (1.2-3.4) Monocytes # (Auto) 0.42 K/uL (0.11-0.59) Eosinophils # (Auto) 0.16 K/uL (0-0.5) Basophils # (Auto) 0.01 K/uL (0-0.2) RDW Standard Deviation 39.2 fL (36.4-46.3) RDW Coefficient of Variation 13.0 % (11.5-14.5) Immature Granulocyte % (Auto) 0.4 % Immature Granulocyte # (Auto) 0.02 K/uL (0.00-0.02) Anion Gap 8.0 mmol/L (3-11) Est Creatinine Clear Calc Drug Dose 170.0 ml/min Estimated GFR () 125.4 Estimated GFR (Non- 108.2 BUN/Creatinine Ratio 14.0 (10-20) Calcium Level 8.6 mg/dl (8.5-10.1) Total Bilirubin 0.4 mg/dl (0.2-1) Direct Bilirubin < 0.1 mg/dl (0-0.2) Aspartate Amino Transf (AST/SGOT) 22 U/L (15-37) Alanine Aminotransferase (ALT/SGPT) 35 U/L (12-78) Alkaline Phosphatase 63 U/L (45-117) Total Protein 7.0 gm/dl (6.4-8.2) Albumin 3.9 gm/dl (3.4-5.0) Lipase 83 U/L (73-393) Bedside Lactic Acid Venous 0.80 mmol/L (0.90-1.70) Laboratory studies as stated above per my review. Medications Administered Medications (Trade) Dose Ordered Sig/Dexter Route Start Time Stop Time Status Last Admin Dose Admin Sodium Chloride 1,000 ml @ 999 mls/hr Q1H1M STAT IV 06/08/17 19:42 06/08/17 20:42 DC 06/08/17 20:08 999 MLS/HR Ceftriaxone Sodium (Rocephin Inj) 1 gm NOW STAT IV 06/08/17 19:42 06/08/17 19:44 DC 06/08/17 20:35 1 GM Ketorolac Tromethamine (Toradol Inj) 30 mg NOW STAT IV 06/08/17 21:06 06/08/17 21:07 DC 06/08/17 21:12 30 MG ED Course 1932: Past medical records reviewed. The patient was evaluated in room A11, and a complete history and physical examination were performed. 1941: Rocephin Inj 1gm IV, Sodium Chloride 1000 ml @ 999 mls/hr IV. 2104: I reevaluated and updated the patient. He is feeling better. 2105: Toradol Inj 30mg IV. 2204: I reevaluated and updated the patient. I changed his wound packing and he will be going home. 2234: Upon reevaluation, the patient is doing well. I discussed the results and treatment plan with him. He verbalized agreement of the treatment plan. The patient was discharged home. Medical Decision Differentials include, but are not limited to; abscess, cellulitis, sepsis, electrolyte or metabolic abnormality. This patient comes in as described above. He was placed in room A 11. Here for treatment and evaluation of a recent abscess with cellulitis. He has tenderness on exam. It is not red or warm and he has no fluctuance. When I removed the packing, there was no purulence. He was repacked. IV access established was given Rocephin 1 g IV. He has no elevation of white count. He has no fever and he has a normal lactic acid. At present he really does not even appear to have a cellulitis. He has no acute electrolyte or metabolic abnormalities. He has an appointment with his doctor tomorrow for recheck which she should keep. He says she's been having some memory issues although he this is been on for years he tells me and is not new. He is to continue antibiotics and return if: increasing pain, fever or chills, worsening of symptoms, any problems concerns. He is happy with plan and discharged to home. Medication Reconcilliation Current Medication List: was personally reviewed by me Blood Pressure Screening Patient's blood pressure: Elevated blood pressure Blood pressure disposition: Elevated BP felt to be situational Impression Primary Impression: Cellulitis Additional Impression: Abscess Scribe Attestation The scribe's documentation has been prepared under my direction and personally reviewed by me in its entirety. I confirm that the note above accurately reflects all work, treatment, procedures, and medical decision making performed by me. Departure Information Dispostion Home / Self-Care Referrals No Doctor, Assigned (PCP) Forms HOME CARE DOCUMENTATION FORM, IMPORTANT VISIT INFORMATION, WORK / SCHOOL INSTRUCTIONS Patient Instructions My [facility] Additional Instructions Rest Drink plenty of fluids. Return if: Worsening of symptoms, fever, increasing redness or swelling, any new problems or concerns Follow-up with your doctor tomorrow and keep your appointment and continue antibiotics Problem Qualifiers
== END 2017-06-08 22:45 | disposition home or self-care (01) ==
LOC: C.EDB 19:03 → C.EDA 22:45
DX: L03.115 Cellulitis of right lower limb (principal); L02.415 Cutaneous abscess of right lower limb

== ENCOUNTER 2019-01-17 00:05 | Inpatient (IN) ==
--- OUTSIDE RECORDS SUMMARY | 2019-01-17 00:09 | External Medical Summary | Continuity of Care Document ---
:1995 Author Name Monik Newton, Provider Address Unavailable Unavailable , Care Team Providers Name Role Phone Jadyn Newton, Jean-Pierre Medrano Unavailable [email or web address] Trinidad GREENFIELD M.D. 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) Complex Regional Pain Syndrome Type I Of The Foot (337.22) Numbness Of The Left Leg Allergies and Adverse Reactions No Known Drug Allergies (Allergy) Medications No Reported Medications Refills: 0 Procedures History of Appendectomy Status: Complete d History of Ankle Exostectomy Talus Left Status: Completed Immunizations Hepatitis B On: 1994 0:00 Hepatitis B On: 1994 0:00 OPV On: 1994 0:00 HIB On: 1994 0:00 DTaP On: 1994 0:00 OPV On: 1994 0:00 HIB On: 1994 0:00 DTaP On: 1994 0:00 OPV On: 1994 0:00 HIB On: 1994 0:00 DTaP On: 1994 0:00 Hepatitis B On: 1994 0:00 MMR On: 29-Jan-1995 0:00 DTaP On: 30-Apr-1995 0:00 Varicella On: 05-Oct-1997 0:00 OPV On: 13-Jan-1999 0:00 DTaP On: 13-Jan-1999 0:00 MMR On: 13-Jan-1999 0:00 Tdap On: 26-Jan-2006 0:00 Meningo (Menactra) On: 10-Nov-2007 0:00 Varicella On: 14-Nov-2008 0:00 FluMist LIQD On: 16-Jan-2011 8:46 Lot #: [id number], [employer] Hepatitis A On: 16-Jan-2011 8:46 Lot #: [id number], [employer] HPV (Gardasil) On: 16-Jan-2011 8:46 Lot #: [id number], [employer] Hepatitis A On: 11-Feb-2012 16:12 Lot #: [id number], [employer] HPV (Gardasil) On: 11-Feb-2012 16:12 Lot #: [id number], [employer] Meningo (Menactra) On: 11-Feb-2012 16:13 Lot #: [id number], [employer] Influenza (Nasal) On: 11-Feb-2012 16:13 Lot #: [id number], [employer] Social History - Smoking Status Never smoker Plan of Treatment Planned Observations Planned Goals not documented Results No Known Results Results not documented
[2019-01-17] MEDS ORDERED: ONDANSETRON INJ 2 MG/ML 2 ML VIAL IV STA (00:22)
[2019-01-17] MEDS ORDERED: SODIUM CHLORIDE 0.9% 1000ML 2,000 ML IV SCH (00:30)
[2019-01-17 00:49] LABS: Basophils # (auto) 0.02 K/uL (0-0.2); Basophils % (auto) 0.4 %; Eosinophils # (auto) 0.12 K/uL (0-0.5); Eosinophils % (auto) 2.3 %; Hematocrit (blood only) 41.1 % (42-52); Hemoglobin 15.4 g/dL (14.0-18.0); Immature Granulocytes # (auto) 0.02 K/uL (0.00-0.02); Immature Granulocytes % (auto) 0.4 %; Lymphocytes # (auto) 1.64 K/uL (1.2-3.4); Lymphocytes % (auto) 31.4 %; Mean Corpuscular Hemoglobin 29.9 pg (25-34); Mean Corpuscular Hgb Conc 37.5 g/dL (32-36); Mean Corpuscular Volume 79.8 fL (80-100); Mean Platelet Volume 10.2 fL (7.4-10.4); Monocytes # (auto) 0.45 K/uL (0.11-0.59); Monocytes % (auto) 8.6 %; Neutrophils # (auto) 2.97 K/uL (1.4-6.5); Neutrophils % (auto) 56.9 %; Platelet Count 194 K/uL (130-400); RDW Coefficient of Variation 12.6 % (11.5-14.5); RDW Standard Deviation 36.2 fL (36.4-46.3); Red Blood Count 5.15 M/uL (4.7-6.1); White Blood Count 5.22 K/uL (4.8-10.8)
[2019-01-17 00:51] LABS: Base Excess VBG 2.1 mEq/L; Oxygen Saturation VBG 82.6 %; pH VBG 7.42 (7.36-7.41)
[2019-01-17 00:55] LABS: Appearance Urine Clear (Clear); Bilirubin Urine Negative (Negative); Blood Urine Negative (Negative); Color Urine Yellow; Glucose Urine UA 3+ (Negative); Ketones Urine Negative (Negative); Leukocyte Esterase Urine Negative (Negative); Nitrite Urine Negative (Negative); Protein Urine Negative (Negative); Specific Gravity Urine 1.033 (1.000-1.030); Urobilinogen Urine Negative (Negative)
[2019-01-17 00:58] LABS: iSTAT Blood Urea Nitrogen 18 mg/dl (7-18); iSTAT Carbon Dioxide 25 mEq/l (24-31); iSTAT Chloride 90 mEq/L (101-112); iSTAT Creatinine 0.8 mg/dl (0.6-1.3); iSTAT Glucose > 700 mg/dl (70-99); iSTAT Hematocrit 43 % (42-52); iSTAT Hemoglobin 14.6 g/dl (14.0-18.0); iSTAT Ionized Calcium 1.19 mmol/l (1.12-1.32); iSTAT Potassium 4.1 mEq/L (3.3-5.0); iSTAT Sodium 126 mEq/L (135-144)
[2019-01-17] MEDS ORDERED: IOVERSOL 100ml IV PRN (01:09)
[2019-01-17 01:15] LABS: Alanine Aminotransferase 30 U/L (12-78); Albumin Level 3.8 gm/dl (3.4-5.0); Aspartate Aminotransferase 11 U/L (15-37); BUN Creatinine Ratio 18.7 (10-20); Bilirubin,Total 0.8 mg/dl (0.2-1); Blood Urea Nitrogen 19 mg/dl (7-18); Calcium 8.5 mg/dl (8.5-10.1); Carbon Dioxide 27 mmol/L (21-32); Chloride 92 mmol/L (98-107); Creatinine Clr Calc Pharmacy 145.1 ml/min; Est GFR (African American) 121.6; Est GFR (Non-African American) 104.9; Glucose 733 mg/dl (70-99); Magnesium 2.2 mg/dl (1.8-2.4); Potassium 4.1 mmol/L (3.5-5.1); Sodium 129 mmol/L (136-145)
[2019-01-17] MEDS ORDERED: NovoLIN-R INSULIN PER UNIT CHARGE IV STA (01:31)
[2019-01-17 01:41] LABS: Albumin Globulin Ratio 1.4 (0.9-2); Alkaline Phosphatase 202 U/L (45-117); Beta-Hydroxybutyrate 3.38 mg/dl (0.2-2.81); Creatine Kinase 64 U/L (39-308); Globulin 2.7 gm/dl (2.5-4.0); Total Protein 6.5 gm/dl (6.4-8.2); Troponin I < 0.015 ng/ml (0-0.045)
[2019-01-17] MEDS ORDERED: SODIUM CHLORIDE 0.9% 1000ML 1,000 ML IV SCH ×2 (02:15→03:43)
--- NOTE | 2019-01-17 03:12 | Emergency Department Note ---
History of Present Illness General Chief complaint: Hyperglycemia Stated complaint: HIGH BLOOD SUGAR History of Present Illness Maximum Pain Intensity: 3 This 23-year-old presents to the ER complaining of hyperglycemia, fatigue and abdominal pain Location: Generalized Quality: Fatigue Severity: Moderate Duration: Past few days Timing: Started a few days ago Context: Symptoms got worse and patient came in Modifying factors: better with rest; worse with activity Patient has not checked his blood sugar in the past few days. He checked it today as he was not feeling well and it read high. He states he is a type II diabetic. He is on insulin and metformin. Patient also combines of abdominal pain. Patient denies cough, congestion, sore throat, fever, chills, flulike il lness. No vomiting or diarrhea. He is tolerating fluids but has a decreased appetite. No history of DKA. Home Medications Home Medications Medication Instructions Recorded Confirmed Type buspirone 10 mg PO TID PRN 05/27/18 01/17/19 History meloxicam 7.5 - 15 mg PO DAILY PRN 05/27/18 01/17/19 History metformin 500 mg PO BID 05/27/18 01/17/19 History insulin glargine [Basaglar KwikPen 18 unit SUBCUT DAILY 06/05/18 01/17/19 History U-100 Insulin] sertraline 50 mg PO DAILY 01/17/19 01/17/19 History Allergies Allergy/AdvReac Type Severity Reaction Status Date / Time No Known Allergies Allergy Verified 01/17/19 00:32 Past Med/Surg History Medical History Abscess (Acute) Cellulitis (Acute) Prepatellar bursitis, right knee (Resolved) Anxiety Hyperglycemia due to type 2 diabetes mellitus (Inactive) Diabetes Diabetes Social History Preferred Language: Thai Current Living Situation: Family Feels Safe at Home: Yes Smoking Status: Never smoker Review of Systems All systems reviewed & are unremarkable except as noted in HPI & below Physical Exam Vital Signs Vital Signs - 24 hr 01/17/19 00:08 01/17/19 00:45 01/17/19 00:58 Temperature 36.3 C L Temperature Source Oral Sepsis Recent Fever Within 48 Hours No Sepsis New/Unexplained Change in Mental Status No Sepsis Action Taken by Nursing No Action Required Pulse Rate - Lying 65 Pulse Rate - Sitting 65 Pulse Rate - Standing 71 Pulse Rate 66 Pulse Rate [Finger] Respiratory Rate 18 Respiratory Effort / Characteristics Respiratory Depth Blood Pressure - Lying 126/54 L Blood Pressure - Sitting 119/64 Blood Pressure- Standing 124/69 Blood Pressure 125/72 Blood Pressure [Right Arm] Blood Pressure Mean 89 Blood Pressure Mean [Right Arm] Pulse Oximetry 96 98 Oxygen Delivery Method Room Air 01/17/19 01:44 01/17/19 02:18 Temperature Temperature Source Sepsis Recent Fever Within 48 Hours Sepsis New/Unexplained Change in Mental Status Sepsis Action Taken by Nursing Pulse Rate - Lying Pulse Rate - Sitting Pulse Rate - Standing Pulse Rate Pulse Rate [Finger] 60 60 Respiratory Rate 20 16 Respiratory Effort / Characteristics Non-Labored Spontaneous Respiratory Depth Normal Blood Pressure - Lying Blood Pressure - Sitting Blood Pressure- Standing Blood Pressure Blood Pressure [Right Arm] 131/68 142/67 H Blood Pressure Mean Blood Pressure Mean [Right Arm] 89 92 Pulse Oximetry 95 94 Oxygen Delivery Method Room Air Room Air VITALS: Vitals are noted on the nurse's note and reviewed by myself. Vital signs stable. GENERAL: White male, in no acute distress, nondiaphoretic, well-developed well- nourished. SKIN: The skin was without rashes, erythema, edema, or bruising. There is no t enting of the skin. Capillary reflex less than 2 seconds. HEAD: Normocephalic atraumatic. EARS: External auditory canals clear, tympanic membranes pearly fernandez without erythema or effusion bilaterally. EYES: Pupils equal round and reactive to light and accommodation. Conjunctivae without injection, sclerae without icterus. Extraocular movements intact. NOSE: Patent, turbinates without inflammation or discharge. MOUTH: Mucous membranes mildly dry. Pharynx without erythema or exudate. Uvula midline. Airway patent. Tongue does not deviate. NECK: Supple without nuchal rigidity. No lymphadenopathy. No thyromegaly. Cervical spine is nontender. No JVD. HEART: Regular rate and rhythm without murmurs gallops or rubs. LUNGS: Clear to auscultation bilaterally without wheezes, rales or rhonchi. No retractions or accessory muscle use. ABDOMEN: Positive bowel sounds x 4. Normal tympanic percussion. Soft, tender to palpation lower abdomen, without masses or organomegaly. Clancy sign negative. No guarding or rebound tenderness. No CVA tenderness MUSCULOSKELETAL: No muscle atrophy, erythema, or edema noted. NEURO: Patient was alert and oriented to person place and time. Normal sensation to light and sharp touch. No focal neurological deficits. Course Administered Medications Ioversol (Optiray 320 100ml) 100 ml IV ONCE PRN PRN Reason: Interaction Checking Stop: 01/21/19 01:08 Last Admin: 01/17/19 01:09 Dose: 93 ml Documented by: [id number] Discontinued Medications Sodium Chloride (Nss 1000ml) 2,000 mls @ 999 mls/hr IV .Q2H1M EDUARDO Stop: 01/17/19 02:30 Last Infusion: 01/17/19 01:51 Dose: 0 mls/hr Documented by: [id number] Admin: 01/17/19 00:51 Dose: 999 mls/hr Documented by: [id number] Insulin Human Regular (Novolin R U-100 Per Unit) 10 units IV NOW STA Stop: 01/17/19 01:32 Last Admin: 01/17/19 01:48 Dose: 10 units Documented by: [id number] Cosigned by: [id number] Ondansetron HCl (Zofran) 4 mg IV NOW STA Stop: 01/17/19 00:23 Last Admin: 01/17/19 00:53 Dose: 4 mg Documented by: [id number] Medical Decision Making Medical Records Attestation: I reviewed the patient's medical records. Home Medications Current Medication List: was personally reviewed by me Laboratory Data Attestation: I reviewed the patient's lab results. Result diagrams: 01/17/19 00:38 01/17/19 00:38 Lab Results 01/17/19 01/17/19 01/17/19 Range/Units 00:24 00:25 00:30 WBC (4.8-10.8) K/uL RBC (4.7-6.1) M/uL Hgb (14.0-18.0) g/dL POC Hgb (14.0-18.0) g/dl Hct (42-52) % POC Hct (42-52) % MCV (80-100) fL MCH (25-34) pg MCHC (32-36) g/dL RDW Std Deviation (36.4-46.3) fL RDW Coeff of Rachell (11.5-14.5) % Plt Count (130-400) K/uL MPV (7.4-10.4) fL Immature Gran % (Auto) % Neut % (Auto) % Lymph % (Auto) % Owsley % (Auto) % Eos % (Auto) % Baso % (Auto) % Immature Gran # (Auto) (0.00-0.02) K/uL Neut # (Auto) (1.4-6.5) K/uL Lymph # (Auto) (1.2-3.4) K/uL Owsley # (Auto) (0.11-0.59) K/uL Eos # (Auto) (0-0.5) K/uL Baso # (Auto) (0-0.2) K/uL VBG pH (7.36-7.41) VBG pCO2 (38-50) mmHg VBG pO2 mmHg VBG HCO3 mmol/L VBG O2 Saturation % VBG Base Excess mEq/L Barometric Pressure mm/Hg POC Sodium (135-144) mEq/L Sodium (136-145) mmol/L POC Potassium (3.3-5.0) mEq/L Potassium (3.5-5.1) mmol/L POC Chloride (101-112) mEq/L Chloride (98-107) mmol/L Carbon Dioxide (21-32) mmol/L POC Total CO2 (24-31) mEq/l Anion Gap (3-11) POC Anion Gap (16-25) mmol/L POC BUN (7-18) mg/dl BUN (7-18) mg/dl Creatinine (0.6-1.4) mg/dl POC Creatinine (0.6-1.3) mg/dl Est Cr Clr Drug Dosing ml/min Est GFR ( Amer) Est GFR (Non-Af Amer) BUN/Creatinine Ratio (10-20) Glucose (70-99) mg/dl POC Glucose > 600 H* > 600 H* (70-99) POC Glucose (other) (70-99) mg/dl Lactate 1.0 (0.4-2.0) mmol/L Calcium (8.5-10.1) mg/dl POC Ioniz Calcium Braden (1.12-1.32) mmol/l Magnesium (1.8-2.4) mg/dl Total Bilirubin (0.2-1) mg/dl AST (15-37) U/L ALT (12-78) U/L Alkaline Phosphatase (45-117) U/L Total Creatine Kinase (39-308) U/L Troponin I (0-0.045) ng/ml Total Protein (6.4-8.2) gm/dl Albumin (3.4-5.0) gm/dl Globulin (2.5-4.0) gm/dl Albumin/Globulin Ratio (0.9-2) Beta-Hydroxybutyric Acd (0.2-2.81) mg/dl TSH (0.300-4.500) uIu/ml Urine Color Urine Appearance (Clear) Urine pH (4.5-7.5) Ur Specific [place] (1.000-1.030) Urine Protein (Negative) Urine Glucose (UA) (Negative) Urine Ketones (Negative) Urine Blood (Negative) Urine Nitrite (Negative) Urine Bilirubin (Negative) Urine Urobilinogen (Negative) Ur Leukocyte Esterase (Negative) 01/17/19 01/17/19 01/17/19 Range/Units 00:30 00:38 00:38 WBC 5.22 (4.8-10.8) K/uL RBC 5.15 (4.7-6.1) M/uL Hgb 15.4 (14.0-18.0) g/dL POC Hgb (14.0-18.0) g/dl Hct 41.1 L (42-52) % POC Hct (42-52) % MCV 79.8 L (80-100) fL MCH 29.9 (25-34) pg MCHC 37.5 H (32-36) g/dL RDW Std Deviation 36.2 L (36.4-46.3) fL RDW Coeff of Rachell 12.6 (11.5-14.5) % Plt Count 194 (130-400) K/uL MPV 10.2 (7.4-10.4) fL Immature Gran % (Auto) 0.4 % Neut % (Auto) 56.9 % Lymph % (Auto) 31.4 % Owsley % (Auto) 8.6 % Eos % (Auto) 2.3 % Baso % (Auto) 0.4 % Immature Gran # (Auto) 0.02 (0.00-0.02) K/uL Neut # (Auto) 2.97 (1.4-6.5) K/uL Lymph # (Auto) 1.64 (1.2-3.4) K/uL Owsley # (Auto) 0.45 (0.11-0.59) K/uL Eos # (Auto) 0.12 (0-0.5) K/uL Baso # (Auto) 0.02 (0-0.2) K/uL VBG pH (7.36-7.41) VBG pCO2 (38-50) mmHg VBG pO2 mmHg VBG HCO3 mmol/L VBG O2 Saturation % VBG Base Excess mEq/L Barometric Pressure mm/Hg POC Sodium (135-144) mEq/L Sodium 129 L (136-145) mmol/L POC Potassium (3.3-5.0) mEq/L Potassium 4.1 (3.5-5.1) mmol/L POC Chloride (101-112) mEq/L Chloride 92 L (98-107) mmol/L Carbon Dioxide 27 (21-32) mmol/L POC Total CO2 (24-31) mEq/l Anion Gap 10.0 (3-11) POC Anion Gap (16-25) mmol/L POC BUN (7-18) mg/dl BUN 19 H (7-18) mg/dl Creatinine 1.00 (0.6-1.4) mg/dl POC Creatinine (0.6-1.3) mg/dl Est Cr Clr Drug Dosing 145.1 ml/min Est GFR ( Amer) 121.6 Est GFR (Non-Af Amer) 104.9 BUN/Creatinine Ratio 18.7 (10-20) Glucose 733 H* (70-99) mg/dl POC Glucose (70-99) POC Glucose (other) (70-99) mg/dl Lactate (0.4-2.0) mmol/L Calcium 8.5 (8.5-10.1) mg/dl POC Ioniz Calcium Braden (1.12-1.32) mmol/l Magnesium 2.2 (1.8-2.4) mg/dl Total Bilirubin 0.8 (0.2-1) mg/dl AST 11 L (15-37) U/L ALT 30 (12-78) U/L Alkaline Phosphatase 202 H (45-117) U/L Total Creatine Kinase 64 (39-308) U/L Troponin I < 0.015 (0-0.045) ng/ml Total Protein 6.5 (6.4-8.2) gm/dl Albumin 3.8 (3.4-5.0) gm/dl Globulin 2.7 (2.5-4.0) gm/dl Albumin/Globulin Ratio 1.4 (0.9-2) Beta-Hydroxybutyric Acd 3.38 H (0.2-2.81) mg/dl TSH 2.430 (0.300-4.500) uIu/ml Urine Color Yellow Urine Appearance Clear (Clear) Urine pH 7.0 (4.5-7.5) Ur Specific [place] 1.033 H (1.000-1.030) Urine Protein Negative (Negative) Urine Glucose (UA) 3+ H (Negative) Urine Ketones Negative (Negative) Urine Blood Negative (Negative) Urine Nitrite Negative (Negative) Urine Bilirubin Negative (Negative) Urine Urobilinogen Negative (Negative) Ur Leukocyte Esterase Negative (Negative) 01/17/19 01/17/19 01/17/19 Range/Units 00:38 00:43 01:42 WBC (4.8-10.8) K/uL RBC (4.7-6.1) M/uL Hgb (14.0-18.0) g/dL POC Hgb 14.6 (14.0-18.0) g/dl Hct (42-52) % POC Hct 43 (42-52) % MCV (80-100) fL MCH (25-34) pg MCHC (32-36) g/dL RDW Std Deviation (36.4-46.3) fL RDW Coeff of Rachell (11.5-14.5) % Plt Count (130-400) K/uL MPV (7.4-10.4) fL Immature Gran % (Auto) % Neut % (Auto) % Lymph % (Auto) % Owsley % (Auto) % Eos % (Auto) % Baso % (Auto) % Immature Gran # (Auto) (0.00-0.02) K/uL Neut # (Auto) (1.4-6.5) K/uL Lymph # (Auto) (1.2-3.4) K/uL Owsley # (Auto) (0.11-0.59) K/uL Eos # (Auto) (0-0.5) K/uL Baso # (Auto) (0-0.2) K/uL VBG pH 7.42 H (7.36-7.41) VBG pCO2 43 (38-50) mmHg VBG pO2 47 mmHg VBG HCO3 27 mmol/L VBG O2 Saturation 82.6 % VBG Base Excess 2.1 mEq/L Barometric Pressure 734.4 mm/Hg POC Sodium 126 L (135-144) mEq/L Sodium (136-145) mmol/L POC Potassium 4.1 (3.3-5.0) mEq/L Potassium (3.5-5.1) mmol/L POC Chloride 90 L (101-112) mEq/L Chloride (98-107) mmol/L Carbon Dioxide (21-32) mmol/L POC Total CO2 25 (24-31) mEq/l Anion Gap (3-11) POC Anion Gap 16.0 (16-25) mmol/L POC BUN 18 (7-18) mg/dl BUN (7-18) mg/dl Creatinine (0.6-1.4) mg/dl POC Creatinine 0.8 (0.6-1.3) mg/dl Est Cr Clr Drug Dosing ml/min Est GFR ( Amer) Est GFR (Non-Af Amer) BUN/Creatinine Ratio (10-20) Glucose (70-99) mg/dl POC Glucose 537 H* (70-99) POC Glucose (other) > 700 H* (70-99) mg/dl Lactate (0.4-2.0) mmol/L Calcium (8.5-10.1) mg/dl POC Ioniz Calcium Braden 1.19 (1.12-1.32) mmol/l Magnesium (1.8-2.4) mg/dl Total Bilirubin (0.2-1) mg/dl AST (15-37) U/L ALT (12-78) U/L Alkaline Phosphatase (45-117) U/L Total Creatine Kinase (39-308) U/L Troponin I (0-0.045) ng/ml Total Protein (6.4-8.2) gm/dl Albumin (3.4-5.0) gm/dl Globulin (2.5-4.0) gm/dl Albumin/Globulin Ratio (0.9-2) Beta-Hydroxybutyric Acd (0.2-2.81) mg/dl TSH (0.300-4.500) uIu/ml Urine Color Urine Appearance (Clear) Urine pH (4.5-7.5) Ur Specific [place] (1.000-1.030) Urine Protein (Negative) Urine Glucose (UA) (Negative) Urine Ketones (Negative) Urine Blood (Negative) Urine Nitrite (Negative) Urine Bilirubin (Negative) Urine Urobilinogen (Negative) Ur Leukocyte Esterase (Negative) 01/17/19 01/17/19 Range/Units 01:42 02:16 WBC (4.8-10.8) K/uL RBC (4.7-6.1) M/uL Hgb (14.0-18.0) g/dL POC Hgb (14.0-18.0) g/dl Hct (42-52) % POC Hct (42-52) % MCV (80-100) fL MCH (25-34) pg MCHC (32-36) g/dL RDW Std Deviation (36.4-46.3) fL RDW Coeff of Rachell (11.5-14.5) % Plt Count (130-400) K/uL MPV (7.4-10.4) fL Immature Gran % (Auto) % Neut % (Auto) % Lymph % (Auto) % Owsley % (Auto) % Eos % (Auto) % Baso % (Auto) % Immature Gran # (Auto) (0.00-0.02) K/uL Neut # (Auto) (1.4-6.5) K/uL Lymph # (Auto) (1.2-3.4) K/uL Owsley # (Auto) (0.11-0.59) K/uL Eos # (Auto) (0-0.5) K/uL Baso # (Auto) (0-0.2) K/uL VBG pH (7.36-7.41) VBG pCO2 (38-50) mmHg VBG pO2 mmHg VBG HCO3 mmol/L VBG O2 Saturation % VBG Base Excess mEq/L Barometric Pressure mm/Hg POC Sodium (135-144) mEq/L Sodium (136-145) mmol/L POC Potassium (3.3-5.0) mEq/L Potassium (3.5-5.1) mmol/L POC Chloride (101-112) mEq/L Chloride (98-107) mmol/L Carbon Dioxide (21-32) mmol/L POC Total CO2 (24-31) mEq/l Anion Gap (3-11) POC Anion Gap (16-25) mmol/L POC BUN (7-18) mg/dl BUN (7-18) mg/dl Creatinine (0.6-1.4) mg/dl POC Creatinine (0.6-1.3) mg/dl Est Cr Clr Drug Dosing ml/min Est GFR ( Amer) Est GFR (Non-Af Amer) BUN/Creatinine Ratio (10-20) Glucose (70-99) mg/dl POC Glucose 520 H* 315 H* (70-99) POC Glucose (other) (70-99) mg/dl Lactate (0.4-2.0) mmol/L Calcium (8.5-10.1) mg/dl POC Ioniz Calcium Braden (1.12-1.32) mmol/l Magnesium (1.8-2.4) mg/dl Total Bilirubin (0.2-1) mg/dl AST (15-37) U/L ALT (12-78) U/L Alkaline Phosphatase (45-117) U/L Total Creatine Kinase (39-308) U/L Troponin I (0-0.045) ng/ml Total Protein (6.4-8.2) gm/dl Albumin (3.4-5.0) gm/dl Globulin (2.5-4.0) gm/dl Albumin/Globulin Ratio (0.9-2) Beta-Hydroxybutyric Acd (0.2-2.81) mg/dl TSH (0.300-4.500) uIu/ml Urine Color Urine Appearance (Clear) Urine pH (4.5-7.5) Ur Specific [place] (1.000-1.030) Urine Protein (Negative) Urine Glucose (UA) (Negative) Urine Ketones (Negative) Urine Blood (Negative) Urine Nitrite (Negative) Urine Bilirubin (Negative) Urine Urobilinogen (Negative) Ur Leukocyte Esterase (Negative) Imaging Data Attestation: I personally reviewed and interpreted this imaging study as follows: MDM Narrative Prior records/ancillary studies reviewed and summarized above. Nursing notes reviewed. Additional history obtained from family. The patient's history was concerning for high blood sugar, fatigue and abdominal pain. Differential diagnosis: Etiologies such as metabolic, infection, hypo/hyperglycemia, electrolyte abnormalities, cardiac sources, intracerebral event, toxicologic, neurologic, as well as others were entertained. Physical examination: As above. ER treatment provided: IV Lock IV fluids, insulin On reassessment the patient felt better. Diagnostics interpretation by me: ECG: High blood sugar and weakness Normal sinus, normal intervals, no acute ST-T wave changes. Impression normal sinus rhythm interpreted by myself I think arrhythmia is unlikely. EKG shows normal sinus rhythm with no interval abnormalities such as QT prolongation or WPW. There are no findings to suggest Brugada syndrome. Cardiac monitoring in the emergency department reveals no tachycardic or bradycardic dysrhythmia. Hypertrophic cardiomyopathy was consi dered but there are no clear historical elements pointing toward this. EKG is not suggestive. The QRS voltage is not extremely large and there are no suggestive Q waves. The labs revealed hyperglycemia without DKA Negative urine VBG reviewed and stable Imaging studies: Chest x-ray with no acute consolidation, pneumothorax or free air per my interpretation CT ABDOMEN & PELVIS With Contrast: Comparison: CT abdomen and pelvis 09/29/07. Liver, gallbladder, spleen, pancreas, adrenal glands, and kidneys are unremarkable. Appendix not visualized, possibly surgically absent. No obstructive or inflammatory changes of the bowel. Urinary bladder and prostate are unremarkable. No acute osseous findings. Radiologist: Komal Yoon M.D. Consultation: A consultation was placed with the hospitalist, Dr Park. The case was discussed and diagnostics were reviewed. The patient was evaluated in the ER for further treatment. Exam and history seem consistent with hyperglycemia without DKA. Patient's initial blood sugar was 733. He is poorly controlled. He was quite fatigued. Patient was hydrated as above and given insulin. Blood sugar did come down. He was not DKA. Patient is agreeable treatment plan of admission. Medicine was consulted. Negative urine. Negative chest x-ray. Negative CT scan of the abdomen. By the evaluation outlined above emergent etiologies such as infection, electrolyte abnormalities, cardiac sources, intracerebral event, toxologic, neurologic, metabolic, as well as others were deemed relatively unlikely. The pt informed about the findings as listed above. All questions were answered and pleased with the treatment. Case reviewed with my attending The chart was completed utilizing [employer] Speech voice recognition software. Grammatical errors, random word insertions, pronoun errors, and incomplete sentences are an occassional consequence of this system due to software limitations, ambient noise, and hardware issues. Any formal questions or concerns about the content, text, or information contained within the body of this dictation should be directly addressed to the physician events administrative assistant for clarification. Impression & Plan Severe hyperglycemia due to diabetes mellitus Discharge Plan Visit Data Chief Complaint: Hyperglycemia Stated Complaint: HIGH BLOOD SUGAR ED Provider: Hansa Canchola ED Midlevel Provider: Nuris Mittal Discharge Problem: Severe hyperglycemia due to diabetes mellitus Patient Disposition: Being Evaluated by Hospitalist Condition: Fair Forms Stand Alone Forms: My [facility] Prescriptions Prescriptions: No Action Basaglar KwikPen U-100 Insulin 100 unit/mL (3 mL) Insulin Pen 18 unit SUBCUT DAILY RF: 0 sertraline 50 mg tablet 50 mg PO DAILY RF: 0 buspirone 10 mg Tablet 10 mg PO TID PRN (Reason: Anxiety) RF: 0 metformin 500 mg Tablet 500 mg PO BID RF: 0 meloxicam 7.5 mg Tablet 7.5 - 15 mg PO DAILY PRN (Reason: Pain) RF: 0 Referrals Referrals: Vance Buitrago MD [Primary Care Provider] -
[2019-01-17] MEDS ORDERED: ACETAMINOPHEN 325 MG TAB PO PRN (03:43)
[2019-01-17] MEDS ORDERED: ONDANSETRON INJ 2 MG/ML 2 ML VIAL IV PRN (03:43)
[2019-01-17] MEDS ORDERED: POLYETHYLENE (MIRALAX) 17 GM PACK PO PRN (03:43)
[2019-01-17] MEDS ORDERED: INSULIN REGULAR 250 UNITS in SODIUM CHLORIDE 0.9% 247.5 ML IV SCH ×2 (03:43→08:00)
[2019-01-17] MEDS ORDERED: NITROGLYCERIN SL 0.4 MG/TAB TAB SL PRN (03:43)
[2019-01-17] MEDS ORDERED: HHS GOAL RANGE 250-350 mg/dl ONE (03:43)
[2019-01-17] MEDS ORDERED: DC ALL PREVIOUSLY ORDERED DIABETES MEDS ONE (03:43)
[2019-01-17] MEDS ORDERED: PENDING 1/2NSS+20mEq KCL IVF SCH (03:43)
[2019-01-17] MEDS ORDERED: PHARMACY GLYCEMIC MGMT CONSULT PRN (04:09)
[2019-01-17] MEDS ORDERED: HHS GOAL RANGE 250-350 mg/dl SCH (04:15)
[2019-01-17] MEDS ORDERED: CARBOHYDRATES FOR HYPOGLYCEMIA PO PRN (05:00)
[2019-01-17] MEDS ORDERED: GLUCOSE 40% GEL 15 GM TUBE PO PRN (05:00)
[2019-01-17] MEDS ORDERED: GLUCAGON FOR INJ 1 MG VIAL SQ PRN (05:00)
[2019-01-17] MEDS ORDERED: GLUCOSE 10 TABS/TUBE PO PRN (05:00)
[2019-01-17] MEDS ORDERED: DEXTROSE 50% 50 ML SYRINGE IV PRN (05:00)
[2019-01-17] MEDS: INSULIN ASPART 100 UNITS/ML 3 ML PEN SC SCH ×5 (05:54→17:01)
[2019-01-17] MEDS ORDERED: INSULIN GLARGINE SOLOSTAR 100 UNITS/ML 3 ML PEN SC ONE ×3 (06:15→15:30)
--- NOTE | 2019-01-17 06:25 | XRay Report ---
XR chest 1V portable HISTORY: 23 years-old Male weakness acute weakness COMPARISON: CT abdomen and pelvis of same day, chest radiograph 05/27/2018 TECHNIQUE: Portable AP view of the chest FINDINGS: Cardiomediastinal and hilar silhouettes are within normal limits. There is no pneumothorax, pleural e ffusion, focal airspace consolidation or overt pulmonary edema. Bones of the chest appear grossly int act. IMPRESSION: No acute process. The above report was generated using voice recognition software. It may contain grammatical, syntax o r spelling errors. Electronically signed by: Logan Price M.D. 01/17/2019 6:23 AM
[2019-01-17 06:46] LABS: Estimated Average Glucose 329 mg/dl; Hemoglobin A1C 13.1 % (4.5-5.6)
--- NOTE | 2019-01-17 06:46 | CT Scan Report ---
ABDOMEN AND PELVIS CT WITH IV CONTRAST CT DOSE: 842.90 mGy.cm HISTORY: Acute right lower quadrant abdominal pain with nausea and dizziness lower abd pain TECHNIQUE: Multiaxial CT images of the abdomen and pelvis were performed following the use of intrave nous contrast. A dose lowering technique was utilized adhering to the principles of ALARA. COMPARISON STUDY: Ultrasound of the abdomen 08/10/2018, CT lumbar spine and 10/09/2016, CT abdomen and pelvis 09/29/2007 FINDINGS: Minimal groundglass opacities about the lateral basal segment left lower lobe may be inflammatory or reflect atelectasis. Lung bases are otherwise generally clear. No pneumatosis or pneumoperitoneum. Im aged inferior cardiac chambers appear unremarkable. Spleen is mildly enlarged, 16.1 cm in length. Amor creas, adrenal glands and liver appear unremarkable. Contracted gallbladder. Patency of the hepatic a nd portal veins. Kidneys, ureters, prostate and urinary bladder appear unremarkable. Aorta and IVC ar e within normal limits.. Prominent and mildly enlarged lymph nodes of the mesentery measure up to 12 mm in short axis. No enlarged retroperitoneal lymph nodes identified. Fluid noted within the distal e sophagus. No bowel obstruction or bowel wall thickening. The appendix is not visualized and likely campbell rgically absent. Terminal ileum is unremarkable. No ascites or mesenteric inflammation. Soft tissues are unremarkable. Osteophytic spurring noted about the pubic symphysis. Bones appear to be intact. IMPRESSION: 1. No acute intra-abdominal or intrapelvic abnormality identified. 2. No bowel obstruction or bowel wall thickening. 3. Nonvisualization of the appendix, likely surgically absent. 4. Mild splenomegaly. 5. Nonspecific prominent and mildly enlarged lymph nodes of the mesentery may be on a reactive basis. Electronically signed by: Logan Price M.D. 01/17/2019 6:45 AM
[2019-01-17] MEDS ORDERED: INSULIN ASPART 100 UNITS/ML 3 ML PEN SC SCH ×2 (07:30→21:00)
--- NOTE | 2019-01-17 07:43 | History and Physical Report ---
DATE OF ADMISSION: 01/17/2019 CHIEF COMPLAINT: Hyperglycemia. HISTORY OF PRESENT ILLNESS: A 23-year-old male with past medical history significant for anxiety, PTSD, chronic pain, type 2 diabetes, comes with hyperglycemia. The patient says he was diagnosed diabetes in April of last year. He says he is new to the diagnosis and he is first one in the family who was diagnosed with diabetes and he thinks he was not taking care of it very well, was not checking sugars regularly and last few days he was not feeling good. He was having some headaches, on and off blurred vision, some dry cough, nausea and also some abdominal pain. He could not pinpoint but later found to have very high blood sugars. In the ER, his blood sugars were running greater than 700 and they came down 500 with iv insulin .Received 2 liters of fluids, feeling slightly better. Denies any earache, no runny nose, no sore throat, no difficulty swallowing, no chest pain, no shortness of breath, no diarrhea. Normal bowel movements. No hematuria. No blood or no burning micturition, no swelling in the legs, no rash. Currently resting comfortably and hemodynamically stable. ALLERGIES: No known drug allergies. PAST MEDICAL HISTORY: As mentioned above. PAST SURGICAL HISTORY: Ankle arthroscopy, dental surgery, appendectomy. MEDICATIONS: The patient is on insulin glargine 17 units once daily, metformin 500 mg p.o. b.i.d., Zoloft 50 mg p.o. daily, buspirone 15 mg p.o. t.i.d. p.r.n.,meloxicam 15 mg p.o. daily p.r.n., albuterol p.r.n. FAMILY HISTORY: No significant family history in file. SOCIAL HISTORY: Smokes 2 cigarettes a day. No alcohol use, no drug use. REVIEW OF SYMPTOMS: As per HPI. Rest of review of systems negative. PHYSICAL EXAMINATION: GENERAL: The patient is of moderate build, not in acute distress. VITAL SIGNS: Temperature 36.3, pulse 60, respiratory rate 16, blood pressure 142/67, oxygen 94% room air. HEENT: No pallor, no icterus. Pupils equal, round, reactive to light. NECK: No JVD, no neck masses, no carotid bruits. CARDIOVASCULAR: S1, S2 heard, regular rate and rhythm, no murmur, no gallop. RESPIRATORY SYSTEM: Normal AP diameter. No thyromegaly. No wheezing, no crackles. ABDOMEN: Soft, bowel sounds present. Mild discomfort. No guarding, no rigidity. No distention. CENTRAL NERVOUS SYSTEM: Cranial nerves II-XII grossly intact. Nonfocal. EXTREMITIES: No edema, no erythema. LABORATORY DATA: WBC 5.2, hemoglobin 15.4, hematocrit 41.1, platelets 194. Venous blood gas pH of 7.4, pCO2 of 43, pO2 47, bicarbonate 27. Sodium 129, potassium 4.1, chloride 92, CO2 27, anion gap 10, BUN 19, creatinine 1, serum glucose 733. Lactate 1. Calcium 8.5, magnesium 2.2, total bilirubin 0.8, AST 11, ALT 30, alkaline phosphatase is 202, total creatinine kinase 64. Troponin I less than 0.015. Beta hydroxybutyrate acid 3.3. TSH 2.4. Urinalysis negative. Chest x-ray: No acute findings seen. EKG: Shows sinus bradycardia, sinus rhythm, rate of 59, no significant changes found. ASSESSMENT AND PLAN: This is a 23-year-old male who presents with hyperglycemia 1. Hyperglycemia.Presented with sugars>700. NOT in DKA Not in HHS. will put him on insulin drip protocol with HHS protocol and aggressive fluids as per protocol and consult pharmacy. When sugars improved will treat him with long acting Lantus insulin sliding scale as per pharmacy. Will get him the diabetic education consult. Needs close followup. 2. Hyponatremia . Mostly pseudohyponatremia from sugars. We will follow the labs. 3. Anxiety and post-traumatic stress disorder. Continue Zoloft and buspirone p.r.n. 4. Deep venous thrombosis prophylaxis, sequential compression devices. DISPOSITION: Admit to tele floor. Expect discharge home and follow with his family doctor. Level 1 full code. MTDD
[2019-01-17] MEDS ORDERED: MODERATE STRESS LEVEL ONE (07:52)
[2019-01-17] MEDS ORDERED: INSULIN HUMAN REGULAR IV BOLUS 2.5 UNITS in SYRINGE 0 ML IV ONE (08:00)
[2019-01-17] MEDS ORDERED: NSS + 20MEQ KCL 20 MEQ/1,000 ML BAG IV SCH (08:10)
--- NOTE | 2019-01-17 08:12 | Hospitalist Progress Note ---
Date of Service January 17, 2019 Assessment & Plan (1) Severe hyperglycemia due to diabetes mellitus: Patient is 23-year-old male with history of diabetes mellitus type 2, uncontrolled, anxiety, PTSD, chronic pain, comes to ED with hyperglycemia. Diabetes mellitus type 2, uncontrolled with severe hyperglycemia Patient was diagnosed with type 2 diabetes mellitus in April 2018. Had symptoms of blurry vision, headaches, nausea, some abdominal pain and found to have blood sugars in 700s. -Likely precipitated by food at [facility]. No signs of sepsis/infection. Compliant with medications. Home regimen Insulin Basaglar 18 units daily, Metformin 500 mg p.o. BID (Average BGS at home - >200) Received IV insulin in ED, 2 L IV fluids. Not in DKA. BGS did come down, now again going up to 300s. Continue with IV Fluids - Started him on IV Insulin drip per d/w pharmacy -Appreciate pharmacy glycemic team inputs -Lifestyle modifications counseling done. Pseudohyponatremia Secondary to hypoglycemia Anxiety/posttraumatic disorder Continue Zoloft and buspirone as needed DVT prophylaxis SCDs Encourage ambulation Disposition Observation status. Patient's blood sugars continues to be uncontrolled requiring IV insulin drip, therefore will have to stay overnight for better control of blood sugar prior to discharge. Medical management in progress Subjective Patient is feeling better. Denies any abdominal pain, blurry vision, nausea, vomiting. No chest pain, shortness of breath, fever, chills. Blood sugar back up to 300s, now on IV insulin drip. Physical Exam Physical Exam: GENERAL- AAOX3, No acute distress LUNGS- Air entry bilaterally equal. No rales, rhonchi, crackles, wheezes heard. HEART- Regular rate and rhythm. No murmurs ABDOMEN- Soft, non tender, non distended, Bowel sounds heard. EXTREMITIES- Good peripheral pulses, no edema Results & Data Vital Signs (Past 12 Hours) Vital Signs Temp Pulse Pulse Pulse Resp BP BP 01/17/19 07:10 36.8 C 62 17 112/63 01/17/19 03:43 36.4 C L 68 20 01/17/19 03:09 62 20 01/17/19 02:18 60 16 01/17/19 01:44 60 20 01/17/19 00:45 01/17/19 00:08 36.3 C L 66 18 125/72 BP Pulse Ox 01/17/19 07:10 95 01/17/19 03:43 130/80 96 01/17/19 03:09 114/71 95 01/17/19 02:18 142/67 H 94 01/17/19 01:44 131/68 95 01/17/19 00:45 98 01/17/19 00:08 96
--- NOTE | 2019-01-17 08:44 | Pharmacy Report ---
Glycemic Control Consultation - Date of Service January 17, 2019 - Scope Scope: Glycemic Pharmacist consulted by Dr Park on 01/17 for glycemic control and to write orders per [facility] inpatient glycemic control protocol - Objective Weight: 102.7 kg Accuchecks BSG (last 24hrs): 01/17/19 01/17/19 01/17/19 00:24 00:25 00:38 Glucose 733 H* POC Glucose > 600 H* > 600 H* POC Glucose (other) 01/17/19 01/17/19 01/17/19 00:43 01:42 01:42 Glucose POC Glucose 537 H* 520 H* POC Glucose (other) > 700 H* 01/17/19 01/17/19 01/17/19 02:16 04:03 05:50 Glucose POC Glucose 315 H* 264 H 334 H* POC Glucose (other) 01/17/19 01/17/19 07:08 07:09 Glucose POC Glucose 317 H* 340 H* POC Glucose (other) Laboratory Data (last 24hrs): 01/17/19 00:38 Potassium 4.1 Carbon Dioxide 27 Anion Gap 10.0 Creatinine 1.00 Est Cr Clr Drug Dosing 145.1 Beta-Hydroxybutyric Acd 3.38 H HbA1c: Hemoglobin A1c 13.1 % (4.5-5.6) H 01/17/19 06:11 - Recent Pertinent Medications Outpatient Anti-diabetic Regimen: * Lantus 18 units daily, metformin 500 mg bid * A1c = 13.1 % [01/17/19] Risk Factors for Insulin Resistance: * Diet: T2DM - Assessment & Plan Assessment & Plan: ASSESSMENT: * Type 2 diabetic with severe hyperglycemia on admission of BSG >600 mg/dL. On Lantus and metformin outpatient. Diagnosed with type 2 diabetes . A1C on admission elevated at 13.1%. Per provider notes, patient had not been checking blood sugars last couple of days. BSGs at home typically running in the 200s. [place] last [place] - likely related to increased BSGs * In ED, received 10 units IV insulin and 20 units of Lantus - BSG this am trended down significantly to 264 mg/dL ; Insulin drip never started since BSGs improving * However, BSGs now trending back up to 340 mg/dL later this morning. Spoke with provider and plan start drip. * Patient no appetite this morning per nurse, just eating minimal at lunch PLAN FOR INPATIENT GLYCEMIC CONTROL: * Starting IV insulin infusion per (moderate) stress protocol * Goal Range 140 - 200 mg/dl * In the critical care setting, continuous IV insulin infusion has been shown to be the best method for achieving glycemic targets. * Holding outpatient oral diabetes medications * Basal insulin * Lantus 20 units x 1 - then starting insulin drip * Give another dose Lantus 30 units x 1 for now in hopes to transition off drip * Nursing may discontinue IV insulin infusion when both of the following criteria met: 1. BSG 180 mg/dL or less 2. Insulin infusion rate is 1 unit/hr or less * Bolus insulin-to start when drip dc/ed * NovoLog per scale ACHS or Q6hrs while NPO * Goal Range: Low 120 mg/dL - High 180 mg/dL * Correction Factor: 25 mg/dL/unit * Nutritional / Prandial insulin per carb ratio of 1 unit per 8 grams CHO consumed * Please note that the plan above was derived based on current level of insulin resistance and hospital stress. These recommendations are appropriate for inpatient admission only. Plan of care upon discharge will need to be reassessed to avoid potential outpatient hypo/hyperglycemia. Thank you.
[2019-01-17] MEDS: PENDING D5 1/2NS+20mEq KCL IVF SCH ×4 (08:59→11:08)
[2019-01-17] MEDS ORDERED: SODIUM CHLOR 0.45% + 20MEQ KCL 20 MEQ/1,000 ML BAG IV SCH (13:15)
[2019-01-17 14:03] LABS: BUN Creatinine Ratio 18.8 (10-20); Blood Urea Nitrogen 13 mg/dl (7-18); Calcium 8.3 mg/dl (8.5-10.1); Carbon Dioxide 27 mmol/L (21-32); Chloride 109 mmol/L (98-107); Creatinine Clr Calc Pharmacy 208.1 ml/min; Est GFR (African American) > 150.0; Est GFR (Non-African American) 132.1; Glucose 174 mg/dl (70-99); Magnesium 2.1 mg/dl (1.8-2.4); Phosphorus 3.3 mg/dl (2.5-4.9); Sodium 142 mmol/L (136-145)
[2019-01-17] MEDS ORDERED: D5W AND 1/2NSS + 20MEQ KCL 20 MEQ/1,000 ML BAG IV SCH (14:15)
[2019-01-17 17:16] LABS: Blood Urea Nitrogen 12 mg/dl (7-18); Calcium 8.1 mg/dl (8.5-10.1); Carbon Dioxide 27 mmol/L (21-32); Chloride 109 mmol/L (98-107); Creatinine Clr Calc Pharmacy 205.1 ml/min; Est GFR (African American) > 150.0; Est GFR (Non-African American) 131.3; Glucose 212 mg/dl (70-99); Magnesium 1.9 mg/dl (1.8-2.4); Phosphorus 3.6 mg/dl (2.5-4.9); Potassium 4.1 mmol/L (3.5-5.1); Sodium 141 mmol/L (136-145)
[2019-01-17] MEDS: DC IV INSULIN INFUSION 1 EA DEVI SCH ×2 (17:48→18:13)
[2019-01-17] MEDS: SODIUM CHLOR 0.45% + 20MEQ KCL 20 MEQ/1,000 ML BAG IV SCH (18:13)
[2019-01-17 21:19] LABS: BUN Creatinine Ratio 14.2 (10-20); Calcium 7.9 mg/dl (8.5-10.1); Creatinine Clr Calc Pharmacy 184.4 ml/min; Est GFR (African American) 145.7; Est GFR (Non-African American) 125.7; Magnesium 1.8 mg/dl (1.8-2.4); Phosphorus 3.1 mg/dl (2.5-4.9); Potassium 3.8 mmol/L (3.5-5.1)
[2019-01-18] MEDS: INSULIN ASPART 100 UNITS/ML 3 ML PEN SC SCH ×4 (00:47→11:45)
[2019-01-18] MEDS: SODIUM CHLOR 0.45% + 20MEQ KCL 20 MEQ/1,000 ML BAG IV SCH ×3 (01:08→13:45)
[2019-01-18 01:12] LABS: BUN Creatinine Ratio 12.3 (10-20); Calcium 8.3 mg/dl (8.5-10.1); Creatinine Clr Calc Pharmacy 179.8 ml/min; Est GFR (African American) 144.2; Est GFR (Non-African American) 124.4; Magnesium 1.8 mg/dl (1.8-2.4); Phosphorus 3.5 mg/dl (2.5-4.9)
[2019-01-18 01:45] LABS: Potassium 4.5 mmol/L (3.5-5.1)
[2019-01-18 05:23] LABS: Hematocrit (blood only) 37.5 % (42-52); Hemoglobin 13.7 g/dL (14.0-18.0); Mean Corpuscular Hemoglobin 29.7 pg (25-34); Mean Corpuscular Hgb Conc 36.5 g/dL (32-36); Mean Corpuscular Volume 81.2 fL (80-100); Mean Platelet Volume 10.3 fL (7.4-10.4); Platelet Count 170 K/uL (130-400); RDW Coefficient of Variation 13.2 % (11.5-14.5); RDW Standard Deviation 38.4 fL (36.4-46.3); Red Blood Count 4.62 M/uL (4.7-6.1); White Blood Count 6.04 K/uL (4.8-10.8)
[2019-01-18 05:53] LABS: BUN Creatinine Ratio 17.1 (10-20); Blood Urea Nitrogen 11 mg/dl (7-18); Carbon Dioxide 27 mmol/L (21-32); Chloride 109 mmol/L (98-107); Creatinine Clr Calc Pharmacy 227.6 ml/min; Est GFR (African American) > 150.0; Glucose 174 mg/dl (70-99); Magnesium 1.8 mg/dl (1.8-2.4); Sodium 142 mmol/L (136-145)
[2019-01-18 05:54] LABS: Phosphorus 3.6 mg/dl (2.5-4.9)
[2019-01-18] MEDS: DC IV INSULIN INFUSION 1 EA DEVI SCH ×5 (07:04→07:17)
--- NOTE | 2019-01-18 09:15 | Pharmacy Report ---
Pharmacy Glycemic Short Note 2 - Date of Service January 18, 2019 - Glycemic Short BSG Results (Last 24 hours): 01/17/19 01/17/19 01/17/19 09:52 10:49 11:45 Glucose POC Glucose 264 H 313 H* 300 H 01/17/19 01/17/19 01/17/19 12:47 13:28 13:53 Glucose 174 H POC Glucose 280 H 192 H 01/17/19 01/17/19 01/17/19 15:36 16:32 16:44 Glucose 212 H POC Glucose 217 H 223 H 01/17/19 01/17/19 01/17/19 17:36 18:33 19:40 Glucose POC Glucose 205 H 151 H 114 H 01/17/19 01/17/19 01/17/19 19:55 20:35 20:54 Glucose 213 H POC Glucose 134 H 212 H 01/17/19 01/17/19 01/17/19 21:35 22:34 23:28 Glucose POC Glucose 165 H 290 H 226 H 01/18/19 01/18/19 01/18/19 00:28 00:40 02:19 Glucose 156 H POC Glucose 152 H 133 H 01/18/19 01/18/19 01/18/19 03:18 04:22 05:12 Glucose 174 H POC Glucose 159 H 156 H 01/18/19 01/18/19 05:26 07:22 Glucose POC Glucose 161 H 178 H ASSESSMENT: 01/18: * Patient received total of 78 units of insulin yesterday in addition to IV insulin drip / 50 units of basal insulin * Drip this morning running at 1 unit/hr and BSGs well controlled [id number] (<200s) * Will transition off insulin drip this morning and start Novolog SSI * Plan is to transition to once daily Lantus dosing today since patient take once daily at home. Will give 45 units of Lantus around 1000 am this morning. Would anticipate patient needing slightly less Lantus on discharge PLAN FOR INPATIENT GLYCEMIC CONTROL: * Hold outpatient oral diabetes medications * Basal insulin * Transition to once daily with Lantus 45 units today at 10am, decrease likely to 40 units daily tomorrow * Bolus insulin * NovoLog per scale ACHS or Q6hrs while NPO * Goal Range: Low 120 mg/dL - High 180 mg/dL * Correction Factor: 25 mg/dL/unit * Nutritional / Prandial insulin per carb ratio of 1 unit per 8 grams CHO consumed PLAN FOR DISCHARGE: * A1C of 13.1% indicates poor glucose control outpatient. Prior to admission managed on metformin and Lantus only. Goal A1C is ~7% * A1C is greater than or equal to 10% --> would consider titrating dose up on home metformin + combination injectable therapy (basal insulin + rapid acting insulin) * Could consider Lantus 40 units once daily on discharge - would recommend close f/u with BSGs monitoring/titration of dose + Novolog SSI
[2019-01-18 09:20] LABS: BUN Creatinine Ratio 14.3 (10-20); Blood Urea Nitrogen 10 mg/dl (7-18); Calcium 8.1 mg/dl (8.5-10.1); Carbon Dioxide 25 mmol/L (21-32); Chloride 109 mmol/L (98-107); Creatinine Clr Calc Pharmacy 214.2 ml/min; Est GFR (African American) > 150.0; Est GFR (Non-African American) 133.7; Glucose 243 mg/dl (70-99); Magnesium 1.8 mg/dl (1.8-2.4); Phosphorus 3.6 mg/dl (2.5-4.9); Potassium 4.1 mmol/L (3.5-5.1); Sodium 141 mmol/L (136-145)
[2019-01-18] MEDS ORDERED: INSULIN GLARGINE SOLOSTAR 100 UNITS/ML 3 ML PEN SC ONE (10:00)
--- NOTE | 2019-01-18 14:49 | Hospitalist Progress Note ---
Date of Service January 18, 2019 Assessment & Plan (1) Severe hyperglycemia due to diabetes mellitus: Patient is 23-year-old male with history of diabetes mellitus type 2 recently diagnosed, in April 2018, Has been on oral metformin 500 mg twice daily and basal long-acting Lantus 18 units daily Presented with hyperglycemia BSG 700 associated with neuropathy symptoms Diabetes mellitus type 2, uncontrolled with severe hyperglycemia Patient was diagnosed with type 2 diabetes mellitus in April 2018. Had symptoms of blurry vision, headaches, nausea, some abdominal pain and found to have blood sugars in 700s. -Large limited active drainage failure: Possibly precipitated by high sugar drink -Patient reports of being compliant with medications. Home regimen Insulin Basaglar 18 units daily, Metformin 500 mg p.o. BID (Average BGS at home - >200) Patient was not in DKA: Bicarb 26, normal anion gap Patient was treated with IV insulin drip, IV fluids as per [facility] protocol Appreciate input from pharmacy for glycemic management -Hemoglobin A1c 13.3 which gives estimated average blood sugar 386 -prosthodontist/educator consulted, appreciate input Blood sugar improved/normalized after IV insulin protocol for 12 hours, Transitioned to subcu Lantus: Patient required 40 units of Lantus this morning Recommendation as per glycemic pharmacist, patient can be discharged with Lantus 40 units in a.m.: Prescription sent to pharmacy NovoLog short-acting 4 units pre-meal Metformin dose increased to 1000 mg in a.m., 500 mg in p.m. Referral made to [facility] diabetic/endocrine clinic, office will call with appointment Patient given instruction to check blood sugar 4 times daily (before breakfast/fasting, before lunch, before dinner, at bedtime) Keep a log of the blood sugars, and bring it to the diabetic clinic for evaluation Pseudohyponatremia Sodium was 126 on admission secondary to secondary to hypoglycemia Resolved, sodium 136 after improvement of blood sugar Anxiety/posttraumatic disorder Continue Zoloft and buspirone as needed DVT prophylaxis SCDs Patient is ambulating independently Disposition Stable to be discharged home today Hospital follow-up scheduled with Dr. Anderson Patient will be followed with diabetic clinic, Subjective Patient's been off insulin drip since morning Transition made to use subcu Lantus and NovoLog Last blood sugar 178 Patient feels much better this morning No fever or chills, no or GI symptoms No complaint of cough, no chest pain, no shortness of breath or LIM No complaint of nausea, no abdominal pain, no increased thirst Energy level back to normal Had multiple conversations with prosthodontist/educator, and diabetic pharmacy Patient is very motivated to start with low dose short-acting pre-meal NovoLog along with long-acting Lantus willing to check blood sugar 4 times daily and keep log Patient wants to follow-up with Diabetic/endocrine clinic with [facility] Referral made by prosthodontist/educator Patient is stable to be discharged home today Review of Systems Review of Systems: All systems reviewed & are unremarkable except as noted in HPI & below Physical Exam Physical Exam: GENERAL: No sign of distress, HEENT: Sclera nonicteric, pink-purple bilateral equal reactive to light extraocular muscle intact Normal oral mucosa, neck: No JVD, no thyromegaly, trachea midline Lungs: Clear to auscultate, no wheeze or rales Cardiovascular: Regular S1 and S2, no murmur or gallop, no JVD, no lower extremity edema Abdomen: Soft, nontender, bowel sounds active, no hepatosplenomegaly Extremities: No rash or deformity, normal joint, Neuro: No focal neurological deficit, no dysarthria, no facial droop Psych: Alert awake oriented x3: Euthymic Skin: No rash LYMPH NODES: No cervical lymphadenopathy Results & Data Vital Signs (Past 12 Hours) Vital Signs Temp Pulse Pulse Resp BP Pulse Ox 01/18/19 11:22 36.4 C L 55 L 17 120/68 95 01/18/19 08:00 52 L 01/18/19 07:20 36.5 C 48 L 16 113/66 95 01/18/19 04:00 36.5 C 61 16 106/61 97
--- NOTE | 2019-01-18 15:16 | Discharge Summary ---
Date of Service January 18, 2019 Admission HPI Per Admitting Provider DICTATED BY: Molina Park MD DATE OF ADMISSION: 01/17/2019 CHIEF COMPLAINT: Hyperglycemia. HISTORY OF PRESENT ILLNESS: A 23-year-old male with past medical history significant for anxiety, PTSD, chronic pain, type 2 diabetes, comes with hyperglycemia. The patient says he was diagnosed diabetes in April of last year. He says he is new to the diagnosis and he is first one in the family who was diagnosed with diabetes and he thinks he was not taking care of it very well, was not checking sugars regularly and last few days he was not feeling good. He was having some headaches, on and off blurred vision, some dry cough, nausea and also some abdominal pain. He could not pinpoint but later found to have very high blood sugars. In the ER, his blood sugars were running greater than 700 and they came down 500 with iv insulin .Received 2 liters of fluids, feeling slightly better. Denies any earache, no runny nose, no sore throat, no difficulty swallowing, no chest pain, no shortness of breath, no diarrhea. Normal bowel movements. No hematuria. No blood or no burning micturition, no swelling in the legs, no rash. Currently resting comfortably and hemodynamically stable. Principal Diagnosis Poorly controlled diabetes /Hyperglycemia Discharge Exam GENERAL: No sign of distress, HEENT: Sclera nonicteric, pink-purple bilateral equal reactive to light extraocular muscle intact Normal oral mucosa, neck: No JVD, no thyromegaly, trachea midline Lungs: Clear to auscultate, no wheeze or rales Cardiovascular: Regular S1 and S2, no murmur or gallop, no JVD, no lower extremity edema Abdomen: Soft, nontender, bowel sounds active, no hepatosplenomegaly Extremities: No rash or deformity, normal joint, Neuro: No focal neurological deficit, no dysarthria, no facial droop Psych: Alert awake oriented x3: Euthymic Skin: No rash LYMPH NODES: No cervical lymphadenopathy Discharge Data Allergies Allergy/AdvReac Type Severity Reaction Status Date / Time No Known Allergies Allergy Verified 01/17/19 00:32 Consultations 01/17/19 02:11 ED Decision to Admit Stat Ordered Studies 01/17/19 00:22 CT abd pelvis IV con only Urgent Hospital Course (1) Severe hyperglycemia due to diabetes mellitus: Patient is 23-year-old male with history of diabetes mellitus type 2 recently diagnosed, in April 2018, Has been on oral metformin 500 mg twice daily and basal long-acting Lantus 18 units daily Presented with hyperglycemia BSG 700 associated with neuropathy symptoms Diabetes mellitus type 2, uncontrolled with severe hyperglycemia Patient was diagnosed with type 2 diabetes mellitus in April 2018. Had symptoms of blurry vision, headaches, nausea, some abdominal pain and found to have blood sugars in 700s. -Large limited active drainage failure: Possibly precipitated by high sugar drink -Patient reports of being compliant with medications. Home regimen Insulin Basaglar 18 units daily, Metformin 500 mg p.o. BID (Average BGS at home - >200) Patient was not in DKA: Bicarb 26, normal anion gap Patient was treated with IV insulin drip, IV fluids as per [facility] protocol Appreciate input from pharmacy for glycemic management -Hemoglobin A1c 13.3 which gives estimated average blood sugar 386 -certified adaptive physical educator consulted, appreciate input Blood sugar improved/normalized after IV insulin protocol for 12 hours, Transitioned to subcu Lantus: Patient required 40 units of Lantus this morning Recommendation as per glycemic pharmacist, patient can be discharged with Lantus 40 units in a.m.: Prescription sent to pharmacy NovoLog short-acting 4 units pre-meal Metformin dose increased to 1000 mg in a.m., 500 mg in p.m. Referral made to [facility] diabetic/endocrine clinic, office will call with appointment Patient given instruction to check blood sugar 4 times daily (before breakfast/fasting, before lunch, before dinner, at bedtime) Keep a log of the blood sugars, and bring it to the diabetic clinic for evaluation Pseudohyponatremia Sodium was 126 on admission secondary to secondary to hypoglycemia Resolved, sodium 136 after improvement of blood sugar Anxiety/posttraumatic disorder Continue Zoloft and buspirone as needed DVT prophylaxis SCDs Patient is ambulating independently Disposition Stable to be discharged home today Hospital follow-up scheduled with Dr. Anderson Patient will be followed with diabetic clinic, Total Time Total Time Spent Total Time Spent (In Minutes): 40 mins Total Time Includes: Examination of the Patient, Discharge Planning, Medication Reconciliation and Communication With Other Providers Discharge Plan Discharge Items Patient Disposition: Home - Self-Care Reason For Visit: HYPERGLYCEMIA Discharge Diagnosis: Poorly controlled diabetes /Hyperglycemia Condition: Fair Discharge Goals: Decrease discomfort Activity: Resume your previous activity Non-emergency contact: Primary Care Provider Call non-emergency contact if: you have any medication questions Follow-up/Referrals: Vance Buitrago MD [Primary Care Provider] - 01/23/19 10:45 am Diet: Carb Consistent or DM2 Addtl Provider Instructions: Hospital follow-up with Dr. Anderson at [facility] on next 01/23/2019 at 10:45 AM It is very important to keep good blood sugar control to prevent future diabetic complication: Chronic kidney disease leading to renal failure, heart attack/heart disease/stroke Please check your blood sugar at least 4 times daily: Before breakfast (fasting) Before lunch Before dinner At bedtime Please keep log and bring the blood sugar record with your next visit to diabetic clinic and your family physician follow-up MEDICATION CHANGES: 1. Long-acting insulin Basaglar : Dose increased to 40 units daily 2. Short acting insulin: NovoLog 4 units before each meal (breakfast, lunch, dinner) Check blood sugar before insulin injection Do not take insulin if your blood sugar is less than 100 3. Metformin dose increased to: Take 1000 mg (2 tablets) in morning/500 mg(1 tablet) and evening Avoid meloxicam, Motrin, Aleve, Advil, naproxen, ibuprofen: Can cause damage to your kidney Can take Tylenol as needed [id number] for pain or fever ENDOCRINE CLINIC FOLLOW-UP: Office will call with appointment [facility] Address: [address] [place] [address]. [place] [address] Hours Wednesday through Wednesday, from 8:30 am to 5:00 pm Prescriptions: New metformin 500 mg Tablet 1,000 mg PO DIRECTED Qty: 60 RF: 4 Basaglar KwikPen U-100 Insulin 100 unit/mL (3 mL) Insulin Pen 40 unit SUBCUT DAILY 30 Days Qty: 3 RF: 4 Novolog Flexpen U-100 Insulin 100 unit/mL (3 mL) insulin pen 4 units SQ TID Qty: 15 RF: 4 Continued sertraline 50 mg tablet 50 mg PO DAILY RF: 0 buspirone 10 mg Tablet 10 mg PO TID PRN (Reason: Anxiety) RF: 0 Discontinued meloxicam 7.5 mg Tablet 7.5 - 15 mg PO DAILY PRN (Reason: Pain) RF: 0 Stand-Alone Forms: My [employer] Plans, Work/School Release (Inpt) Katheryn/Other Patient Handouts: Diabetes Crochet Beader Complications, Hyperglycemia, Hypoglycemia, Diabetes Type 2 Coping, Insulin Injected, Diabetes Type 2 Oral Meds, Insulin Types, Diabetes Healthy Meals, Diabetes Carbs, Diabetes Exercise Benefits, Diabetes Exercise Get Started, Diabetes Activity Tips Discharge Orders: Discharge Order (Routine); Ordered 01/18/19 Ordered By: Anabell Yo Admission Data Admit Date/Time: 01/17/19 02:44 Attending Provider: Anabell Yo Admit Provider: Molina Park Primary Care Provider: Vance Buitrago Other Providers: Molina Park Pooja S Service: Telemetry Other Interventions: Discharge Summary Assessment (RN) Last Done: 01/18/19 14:51
[2019-01-19] MEDS ORDERED: INSULIN GLARGINE SOLOSTAR 100 UNITS/ML 3 ML PEN SC SCH (09:00)
== END 2019-01-18 16:37 | disposition home or self-care (01) | DRG 638 ==
LOC: ED 00:05 → SUATTDRO 02:44 → 2S 02:44 → INTOOBSV 02:44 → OBSVTOIN 02:44 → 2S 03:24

== ENCOUNTER 2019-02-12 23:39 | Observation (INO) ==
[2019-02-12] MEDS ORDERED: SODIUM CHLORIDE 0.9% 1000ML 2,000 ML IV ONE (23:52)
[2019-02-13 00:15] LABS: Basophils # (auto) 0.01 K/uL (0-0.2); Basophils % (auto) 0.2 %; Eosinophils # (auto) 0.13 K/uL (0-0.5); Hematocrit (blood only) 40.8 % (42-52); Immature Granulocytes # (auto) 0.02 K/uL (0.00-0.02); Immature Granulocytes % (auto) 0.3 %; Lymphocytes # (auto) 1.75 K/uL (1.2-3.4); Lymphocytes % (auto) 27.5 %; Mean Corpuscular Hemoglobin 30.1 pg (25-34); Mean Corpuscular Hgb Conc 36.8 g/dL (32-36); Mean Corpuscular Volume 81.8 fL (80-100); Mean Platelet Volume 10.1 fL (7.4-10.4); Monocytes # (auto) 0.43 K/uL (0.11-0.59); Monocytes % (auto) 6.8 %; Neutrophils # (auto) 4.02 K/uL (1.4-6.5); Neutrophils % (auto) 63.2 %; Platelet Count 197 K/uL (130-400); RDW Coefficient of Variation 12.6 % (11.5-14.5); RDW Standard Deviation 37.4 fL (36.4-46.3); Red Blood Count 4.99 M/uL (4.7-6.1); White Blood Count 6.36 K/uL (4.8-10.8)
[2019-02-13] MEDS ORDERED: ACETAMINOPHEN 1,000 MG/100 ML VIAL IV STA (00:15)
[2019-02-13] MEDS ORDERED: PROCHLORPERAZINE 2 ML IV ONE (00:15)
[2019-02-13] MEDS ORDERED: FAMOTIDINE 20MG IV PUSH 20 MG/5 ML SYR IV STA (00:15)
[2019-02-13 00:56] LABS: Alanine Aminotransferase 21 U/L (12-78); Albumin Globulin Ratio 1.4 (0.9-2); Alkaline Phosphatase 126 U/L (45-117); Aspartate Aminotransferase 8 U/L (15-37); BUN Creatinine Ratio 17.2 (10-20); Bilirubin,Total 0.7 mg/dl (0.2-1); Blood Urea Nitrogen 19 mg/dl (7-18); Carbon Dioxide 27 mmol/L (21-32); Chloride 97 mmol/L (98-107); Creatinine Clr Calc Pharmacy 118.4 ml/min; Est GFR (African American) 108.8; Est GFR (Non-African American) 93.8; Globulin 2.8 gm/dl (2.5-4.0); Glucose 681 mg/dl (70-99); Lipase 113 U/L (73-393); Potassium 4.6 mmol/L (3.5-5.1); Sodium 134 mmol/L (136-145); Total Protein 6.8 gm/dl (6.4-8.2)
[2019-02-13 01:00] LABS: iSTAT Creatinine 0.8 mg/dl (0.6-1.3); iSTAT Hemoglobin 12.9 g/dl (14.0-18.0); iSTAT Ionized Calcium 1.17 mmol/l (1.12-1.32); iSTAT Potassium 4.7 mEq/L (3.3-5.0)
[2019-02-13 01:28] LABS: Appearance Urine Clear (Clear); Bilirubin Urine Negative (Negative); Blood Urine Negative (Negative); Color Urine Yellow; Glucose Urine UA 3+ (Negative); Ketones Urine Negative (Negative); Leukocyte Esterase Urine Negative (Negative); Nitrite Urine Negative (Negative); Protein Urine Negative (Negative); Specific Gravity Urine 1.036 (1.000-1.030); Urobilinogen Urine Negative (Negative); pH Urine 6.5 (4.5-7.5)
[2019-02-13 01:30] LABS: Magnesium 2.1 mg/dl (1.8-2.4)
[2019-02-13 01:46] LABS: Troponin I < 0.015 ng/ml (0-0.045)
--- NOTE | 2019-02-13 01:54 | History & Physical Report ---
Date of Service February 13, 2019 Assessment & Plan (1) Hyperglycemic crisis in diabetes mellitus: DM in a young patient Left-sided abdominal discomfort going to the chest secondary to above (Patient cites symptoms similar to recent confinement.) anxiety/PTSD, stable ongoing tobacco abuse OBS as per case management Medical telemetry given atypical chest pain complaint IV insulin overlapping with patient's basal insulin IVF Ensure availability of home insulin prior to discharge. Baseline TTE RE chest pain Nicotine patch PRN DVT prophylaxis with Lovenox subcu Full code History of Present Illness Chief Complaint: High sugars Primary Care Provider: Vance Buitrago MD History obtained from patient, family, and records. Medical history significant for DM, anxiety/PTSD, chronic pain as per records, ongoing tobacco abuse. Recent confinement last month for hyperglycemic crisis. Patient presented with BSG of 700. Patient discharged on home insulin and Metformin regimen. [place] [facility] [place] contemplated next week Patient compliant with diet and medications until last week when he ran out of insulin. Patient's deciding miscommunication between PCP's office and pharmacy. Home glucometer not registering sugars in the last few days. Intermittent sleepiness at home. Transient achy left-sided abdominal pain going to the chest without shortness of breath without cough symptoms. Discomfort similar to recent confinement for high sugars. Denies diarrhea/dysuria. IV insulin administered for BSG 680 upon arrival at the ER. 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 Allergy/AdvReac Type Severity Reaction Status Date / Time No Known Allergies Allergy Verified 02/13/19 00:08 Home Medications Home Medications Medication Instructions Recorded Confirmed Type buspirone 10 mg PO TID PRN 05/27/18 02/13/19 History sertraline 50 mg PO DAILY 01/17/19 02/13/19 History Basaglar KwikPen U-100 Insulin 40 unit SUBCUT DAILY 30 Days #3 pen 01/18/19 02/13/19 Rx insulin aspart U-100 [Novolog 4 units SQ TID #15 ml 01/18/19 02/13/19 Rx Flexpen U-100 Insulin] metformin 1,000 mg PO DIRECTED #60 tab 01/18/19 02/13/19 Rx folic acid 1 mg PO DAILY 02/13/19 02/13/19 History Past Med/Surg History Medical History Abscess (Acute) Cellulitis (Acute) Prepatellar bursitis, right knee (Resolved) Hyperglycemia due to type 2 diabetes mellitus (Inactive) Anxiety Diabetes Diabetes Family History Other Diabetes Social History Preferred Language: Afghan Communication Ability: Effective 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 Beliefs That Will Affect Care: None Current Living Situation: Spouse and Family Other Information That Helps Us Care for You: No Feels Safe at Home: Yes Safety Concerns: Feels Safe At This Time Smoking Status: Former smoker Second Hand Exposure: Yes ; Hx Alcohol Use: No Hx Substance Use: No Review of Systems Review of Systems: As per HPI, all 10 systems reviewed, all other ROS negative Physical Exam Physical Exam: GENERAL: Comfortable, overweight, episodic sleepiness, no respiratory distress SKIN: Normal color, warm HEENT: [place] palpebral conjunctivae, no ptosis, dry buccal mucosa NECK : Supple, short neck, no tenderness CHEST : CTA, no tenderness HEART : Bradycardic , no obvious murmurs ABDOMEN: Some distention, nontender EXTREMITIES : No LE swelling/tenderness, no other conspicuous deformities noted NEUROLOGIC : Coherent, episodic sleepiness, no facial asymmetry, no other gross focality Results & Data Vital Signs (Past 12 Hours) Vital Signs Temp Pulse Resp BP Pulse Ox 02/13/19 00:36 69 94 02/12/19 23:42 36.6 C 69 20 115/69 97 Laboratory Results Laboratory Results WBC 6.36 K/uL (4.8-10.8) 02/13/19 00:05 RBC 4.99 M/uL (4.7-6.1) 02/13/19 00:05 Hgb 15.0 g/dL (14.0-18.0) 02/13/19 00:05 POC Hgb 12.9 g/dl (14.0-18.0) L 02/13/19 00:45 Hct 40.8 % (42-52) L 02/13/19 00:05 POC Hct 38 % (42-52) L 02/13/19 00:45 MCV 81.8 fL (80-100) 02/13/19 00:05 MCH 30.1 pg (25-34) 02/13/19 00:05 MCHC 36.8 g/dL (32-36) H 02/13/19 00:05 RDW Std Deviation 37.4 fL (36.4-46.3) 02/13/19 00:05 RDW Coeff of Rachell 12.6 % (11.5-14.5) 02/13/19 00:05 Plt Count 197 K/uL (130-400) 02/13/19 00:05 MPV 10.1 fL (7.4-10.4) 02/13/19 00:05 Immature Gran % (Auto) 0.3 % 02/13/19 00:05 Neut % (Auto) 63.2 % 02/13/19 00:05 Lymph % (Auto) 27.5 % 02/13/19 00:05 [place] % (Auto) 6.8 % 02/13/19 00:05 Eos % (Auto) 2.0 % 02/13/19 00:05 Baso % (Auto) 0.2 % 02/13/19 00:05 Immature Gran # (Auto) 0.02 K/uL (0.00-0.02) 02/13/19 00:05 Neut # (Auto) 4.02 K/uL (1.4-6.5) 02/13/19 00:05 Lymph # (Auto) 1.75 K/uL (1.2-3.4) 02/13/19 00:05 [place] # (Auto) 0.43 K/uL (0.11-0.59) 02/13/19 00:05 Eos # (Auto) 0.13 K/uL (0-0.5) 02/13/19 00:05 Baso # (Auto) 0.01 K/uL (0-0.2) 02/13/19 00:05 POC Sodium 133 mEq/L (135-144) L 02/13/19 00:45 Sodium 134 mmol/L (136-145) L 02/13/19 00:05 POC Potassium 4.7 mEq/L (3.3-5.0) 02/13/19 00:45 Potassium 4.6 mmol/L (3.5-5.1) 02/13/19 00:05 POC Chloride 97 mEq/L (101-112) L 02/13/19 00:45 Chloride 97 mmol/L (98-107) L 02/13/19 00:05 Carbon Dioxide 27 mmol/L (21-32) 02/13/19 00:05 POC Total CO2 24 mEq/l (24-31) 02/13/19 00:45 Anion Gap 10.0 (3-11) 02/13/19 00:05 POC Anion Gap 17.0 mmol/L (16-25) 02/13/19 00:45 POC BUN 18 mg/dl (7-18) 02/13/19 00:45 BUN 19 mg/dl (7-18) H 02/13/19 00:05 Creatinine 1.09 mg/dl (0.6-1.4) 02/13/19 00:05 POC Creatinine 0.8 mg/dl (0.6-1.3) 02/13/19 00:45 Est Cr Clr Drug Dosing 118.4 ml/min 02/13/19 00:05 Est GFR ( Amer) 108.8 02/13/19 00:05 Est GFR (Non-Af Amer) 93.8 02/13/19 00:05 BUN/Creatinine Ratio 17.2 (10-20) 02/13/19 00:05 Glucose 681 mg/dl (70-99) H* 02/13/19 00:05 POC Glucose 597 (70-99) H* 02/12/19 23:51 POC Glucose (other) 692 mg/dl (70-99) H* 02/13/19 00:45 Osmolality 314 mOsm/kg (280-300) H 02/13/19 00:05 Calcium 9.0 mg/dl (8.5-10.1) 02/13/19 00:05 POC Ioniz Calcium Braden 1.17 mmol/l (1.12-1.32) 02/13/19 00:45 Magnesium 2.1 mg/dl (1.8-2.4) 02/13/19 00:05 Total Bilirubin 0.7 mg/dl (0.2-1) 02/13/19 00:05 AST 8 U/L (15-37) L 02/13/19 00:05 ALT 21 U/L (12-78) 02/13/19 00:05 Alkaline Phosphatase 126 U/L (45-117) H 02/13/19 00:05 Troponin I < 0.015 ng/ml (0-0.045) 02/13/19 00:05 Total Protein 6.8 gm/dl (6.4-8.2) 02/13/19 00:05 Albumin 4.0 gm/dl (3.4-5.0) 02/13/19 00:05 Globulin 2.8 gm/dl (2.5-4.0) 02/13/19 00:05 Albumin/Globulin Ratio 1.4 (0.9-2) 02/13/19 00:05 Lipase 113 U/L (73-393) 02/13/19 00:05 Beta-Hydroxybutyric Acd 1.60 mg/dl (0.2-2.81) 02/13/19 00:05 Urine Color Yellow 02/13/19 01:16 Urine Appearance Clear (Clear) 02/13/19 01:16 Urine pH 6.5 (4.5-7.5) 02/13/19 01:16 Ur Specific [place] 1.036 (1.000-1.030) H 02/13/19 01:16 Urine Protein Negative (Negative) 02/13/19 01:16 Urine Glucose (UA) 3+ (Negative) H 02/13/19 01:16 Urine Ketones Negative (Negative) 02/13/19 01:16 Urine Blood Negative (Negative) 02/13/19 01:16 Urine Nitrite Negative (Negative) 02/13/19 01:16 Urine Bilirubin Negative (Negative) 02/13/19 01:16 Urine Urobilinogen Negative (Negative) 02/13/19 01:16 Ur Leukocyte Esterase Negative (Negative) 02/13/19 01:16 Diagnostic Findings Chest x-ray as per my interpretation atelectasis, borderline cardiomegaly EKG as per my interpretation :Rate 55, sinus bradycardia, no ischemia
[2019-02-13] MEDS ORDERED: INSULIN GLARGINE SOLOSTAR 100 UNITS/ML 3 ML PEN SQ STA (01:55)
[2019-02-13] MEDS ORDERED: LACTATED RINGER'S 1,000 ML IV SCH (02:00)
[2019-02-13] MEDS ORDERED: LACTATED RINGER'S 1,000 ML IV ONE (02:00)
[2019-02-13] MEDS ORDERED: TRAMADOL HCL 50 MG TABLET PO PRN (02:52)
[2019-02-13] MEDS ORDERED: NITROGLYCERIN SL 0.4 MG/TAB TAB SL PRN (02:52)
[2019-02-13] MEDS ORDERED: ACETAMINOPHEN 325 MG TAB PO PRN ×2 (02:52→13:37)
[2019-02-13] MEDS ORDERED: PROMETHAZINE HCL 12.5 MG in SODIUM CHLORIDE 0.9% 50 ML IV PRN (02:52)
[2019-02-13] MEDS ORDERED: INSULIN HUMAN REGULAR IV BOLUS 2.5 UNITS in SYRINGE 0 ML IV SCH (03:00)
[2019-02-13] MEDS ORDERED: INSULIN REGULAR 250 UNITS in SODIUM CHLORIDE 0.9% 247.5 ML IV SCH (03:00)
[2019-02-13] MEDS: INSULIN PROTOCOL GOAL RANGE SCH ×4 (03:25→07:03)
[2019-02-13] MEDS ORDERED: CARBOHYDRATES FOR HYPOGLYCEMIA PO PRN ×2 (03:45→07:12)
[2019-02-13] MEDS ORDERED: GLUCOSE 40% GEL 15 GM TUBE PO PRN ×2 (03:45→07:12)
[2019-02-13] MEDS ORDERED: GLUCOSE 10 TABS/TUBE PO PRN ×2 (03:45→07:12)
[2019-02-13] MEDS ORDERED: DEXTROSE 50% 50 ML SYRINGE IV PRN ×2 (03:45→07:12)
[2019-02-13] MEDS ORDERED: GLUCAGON FOR INJ 1 MG VIAL IM PRN (03:45)
--- NOTE | 2019-02-13 04:02 | Emergency Department Note ---
Entered by Carole Abel acting as a scribe for Jb Ferrari MD History of Present Illness General Chief complaint: Hyperglycemia Stated complaint: HIGH BLOOD SUGAR Time Seen by Provider: 02/12/19 23:52 Source: patient and family Limitations: no limitations History of Present Illness Provider complaint: Hyperglycemia Onset (ago): hour(s) 2 Radiation: non-radiation Severity: moderate Maximum Pain Intensity: 6 Current Pain Intensity: 6 Relieved By: + other (insulin) Exacerbated By: + other (not taking medications) Associated symptoms: + headaches and + other (+abdominal pain, + frequent urination, - congestion); no cough Treatments prior to arrival: none The patient is a 24 year old male who presents to the Emergency Department with complaints of hyperglycemia, due to this he has had a headache and stomach pains for two hours. The patient was diagnosed with type 1 diabetes about a week ago and could not afford insulin. Per the patient, he was supposed to be paid two weeks ago but never received payment so he has not been able to afford it. The patient states the insulin is 100 dollars to buy. Per the patient, a couple of days ago he got help to buy the prescription and it was filled but he could not get it due to complications at the pharmacy. When the patient ran out of the insulin, he states he stopped checking his blood sugar. The patient denies any cough or congestion. Home Medications Home Medications Medication Instructions Recorded Confirmed Type buspirone 10 mg PO TID PRN 05/27/18 02/13/19 History sertraline 50 mg PO DAILY 01/17/19 02/13/19 History Basaglar KwikPen U-100 Insulin 40 unit SUBCUT DAILY 30 Days #3 pen 01/18/19 02/13/19 Rx insulin aspart U-100 [Novolog 4 units SQ TID #15 ml 01/18/19 02/13/19 Rx Flexpen U-100 Insulin] metformin 1,000 mg PO DIRECTED #60 tab 01/18/19 02/13/19 Rx folic acid 1 mg PO DAILY 02/13/19 02/13/19 History Allergies Allergy/AdvReac Type Severity Reaction Status Date / Time No Known Allergies Allergy Verified 02/13/19 00:08 Past Med/Surg History Medical History Abscess (Acute) Cellulitis (Acute) Prepatellar bursitis, right knee (Resolved) Hyperglycemia due to type 2 diabetes mellitus (Inactive) Anxiety Diabetes Diabetes Family History Other Diabetes Social History Preferred Language: Congolese Communication Ability: Effective Client Relation Specialist Required: No Beliefs That Will Affect Care: None Current Living Situation: Spouse and Family Other Information That Helps Us Care for You: No Feels Safe at Home: Yes Safety Concerns: Feels Safe At This Time Smoking Status: Former smoker Second Hand Exposure: Yes ; Hx Alcohol Use: No Hx Substance Use: No Review of Systems See HPI for pertinent positives & negatives. and A total of 10 systems reviewed and were otherwise negative Physical Exam Vital Signs Vital Signs - 24 hr 02/12/19 23:42 02/13/19 00:36 02/13/19 01:55 Temperature 36.6 C Temperature Source Oral Sepsis Recent Fever Within 48 Hours No Sepsis Action Taken by Nursing No Action Required Pulse Rate 69 69 Pulse Rate [Finger] 59 L Pulse Rhythm Regular Pulse Strength Normal Respiratory Rate 20 17 Respiratory Effort / Characteristics Non-Labored Spontaneous Respiratory Depth Normal Respiratory Pattern Regular Blood Pressure 115/69 Blood Pressure [Right Arm] 125/59 L Blood Pressure Mean 84 Blood Pressure Mean [Right Arm] 81 Blood Pressure Position Sitting Pulse Oximetry 97 94 99 Oxygen Delivery Method Room Air Room Air Room Air GENERAL: Awake, alert, uncomfortable appearing, no distress HENT: Normocephalic, atraumatic. TM's normal. Oropharynx with dry mucous membranes and otherwise unremarkable. EYES: PERRL. EOMI. Normal conjunctiva. Sclera non-icteric. NECK: Supple. No nuchal rigidity. FROM. No JVD or bruit. RESPIRATORY: CTAB CARDIAC: RRR. ABDOMEN: Soft, non distended. Mild epigastric discomfort, no discrete tenderness. No rebound or guarding. No masses. RECTAL: Deferred. MUSCULOSKELETAL: Unremarkable. No edema. No discoloration. Gross motor strength symmetric. NEURO: Normal sensorium. No sensory or motor deficits noted. SKIN: No rash or jaundice noted. LYMPH: No adenopathy Course 2358: Past medical records reviewed. The patient was evaluated in room B3B. A complete history and physical examination was performed. 0113: I spoke with Dr. White, [facility] Hospitalist, about the patients case and he agreed to accept the patient for further evaluation. 0145: The patient has been admitted. Administered Medications Insulin Human Regular 250 (units/ Sodium Chloride) 250 mls @ 2.6 mls/hr IV .Q24H EDUARDO; Protocol Stop: 03/15/19 02:59 Last Admin: 02/13/19 03:24 Dose: 2.6 units/hr, 2.6 mls/hr Documented by: [id number] Cosigned by: [id number] Lactated Ringer's (Lr) 1,000 mls @ 200 mls/hr IV .Q5H ONE Stop: 02/13/19 06:59 Last Admin: 02/13/19 03:23 Dose: 200 mls/hr Documented by: [id number] Discontinued Medications Sodium Chloride (Nss 1000ml) 2,000 mls @ 999 mls/hr IV .Q2H1M ONE Stop: 02/13/19 01:52 Last Infusion: 02/13/19 02:31 Dose: 0 mls/hr Documented by: [id number] Admin: 02/13/19 00:21 Dose: 999 mls/hr Documented by: [id number] Prochlorperazine (Compazine) 2 mls @ 1 mls/min IV ONE ONE Stop: 02/13/19 00:16 Last Admin: 02/13/19 01:15 Dose: 1 mls/min Documented by: [id number] Famotidine (Pepcid 20mg Iv Push) 20 mg in 5 mls @ 2.5 mls/min IV NOW STA Stop: 02/13/19 00:16 Last Admin: 02/13/19 00:35 Dose: 2.5 mls/min Documented by: [id number] Acetaminophen (Ofirmev) 1,000 mg in 100 mls @ 400 mls/hr IV NOW STA Stop: 02/13/19 00:29 Last Infusion: 02/13/19 00:52 Dose: 0 mls/hr Documented by: [id number] Admin: 02/13/19 00:36 Dose: 400 mls/hr Documented by: [id number] Insulin Human Regular 2.5 (units/ Syringe) 2.5 mls @ 0 mls/min IV TODAY@0300 EDUARDO Stop: 02/13/19 03:10 Last Admin: 02/13/19 03:23 Dose: 1 mls/min Documented by: [id number] Cosigned by: [id number] Insulin Glargine (Lantus Solostar Pen) 40 units SQ NOW STA Stop: 02/13/19 01:56 Last Admin: 02/13/19 02:07 Dose: 40 units Documented by: [id number] Cosigned by: [id number] Miscellaneous (Insulin Protocol Goal Range) 1 ea N/A Q15M EDUARDO Stop: 02/13/19 03:00 Last Admin: 02/13/19 03:25 Dose: 1 ea Documented by: [id number] Medical Decision Making Differential Diagnosis Differential diagnosis: Etiologies such as appendicitis, diverticulitis, PUD, biliary pathology, UTI, pancreatitis, obstruction, mesenteric ischemia, aortic pathology, infections, inflammatory bowel disease, renal colic, as well as others were entertained. Medical Records Attestation: I reviewed the patient's medical records. Home Medications Current Medication List: was personally reviewed by me Laboratory Data Attestation: I reviewed the patient's lab results. Result diagrams: 02/13/19 00:05 02/13/19 00:05 Lab Results 02/12/19 02/13/19 02/13/19 Range/Units 23:51 00:05 00:05 WBC 6.36 (4.8-10.8) K/uL RBC 4.99 (4.7-6.1) M/uL Hgb 15.0 (14.0-18.0) g/dL POC Hgb (14.0-18.0) g/dl Hct 40.8 L (42-52) % POC Hct (42-52) % MCV 81.8 (80-100) fL MCH 30.1 (25-34) pg MCHC 36.8 H (32-36) g/dL RDW Std Deviation 37.4 (36.4-46.3) fL RDW Coeff of Rachell 12.6 (11.5-14.5) % Plt Count 197 (130-400) K/uL MPV 10.1 (7.4-10.4) fL Immature Gran % (Auto) 0.3 % Neut % (Auto) 63.2 % Lymph % (Auto) 27.5 % [place] % (Auto) 6.8 % Eos % (Auto) 2.0 % Baso % (Auto) 0.2 % Immature Gran # (Auto) 0.02 (0.00-0.02) K/uL Neut # (Auto) 4.02 (1.4-6.5) K/uL Lymph # (Auto) 1.75 (1.2-3.4) K/uL [place] # (Auto) 0.43 (0.11-0.59) K/uL Eos # (Auto) 0.13 (0-0.5) K/uL Baso # (Auto) 0.01 (0-0.2) K/uL POC Sodium (135-144) mEq/L Sodium 134 L (136-145) mmol/L POC Potassium (3.3-5.0) mEq/L Potassium 4.6 (3.5-5.1) mmol/L POC Chloride (101-112) mEq/L Chloride 97 L (98-107) mmol/L Carbon Dioxide 27 (21-32) mmol/L POC Total CO2 (24-31) mEq/l Anion Gap 10.0 (3-11) POC Anion Gap (16-25) mmol/L POC BUN (7-18) mg/dl BUN 19 H (7-18) mg/dl Creatinine 1.09 (0.6-1.4) mg/dl POC Creatinine (0.6-1.3) mg/dl Est Cr Clr Drug Dosing 118.4 ml/min Est GFR ( Amer) 108.8 Est GFR (Non-Af Amer) 93.8 BUN/Creatinine Ratio 17.2 (10-20) Glucose 681 H* (70-99) mg/dl POC Glucose 597 H* (70-99) POC Glucose (other) (70-99) mg/dl Osmolality (280-300) mOsm/kg Calcium 9.0 (8.5-10.1) mg/dl POC Ioniz Calcium [place] (1.12-1.32) mmol/l Magnesium 2.1 (1.8-2.4) mg/dl Total Bilirubin 0.7 (0.2-1) mg/dl AST 8 L (15-37) U/L ALT 21 (12-78) U/L Alkaline Phosphatase 126 H (45-117) U/L Troponin I < 0.015 (0-0.045) ng/ml Total Protein 6.8 (6.4-8.2) gm/dl Albumin 4.0 (3.4-5.0) gm/dl Globulin 2.8 (2.5-4.0) gm/dl Albumin/Globulin Ratio 1.4 (0.9-2) Lipase 113 (73-393) U/L Beta-Hydroxybutyric Acd 1.60 (0.2-2.81) mg/dl Urine Color Urine Appearance (Clear) Urine pH (4.5-7.5) Ur Specific [place] (1.000-1.030) Urine Protein (Negative) Urine Glucose (UA) (Negative) Urine Ketones (Negative) Urine Blood (Negative) Urine Nitrite (Negative) Urine Bilirubin (Negative) Urine Urobilinogen (Negative) Ur Leukocyte Esterase (Negative) 02/13/19 02/13/19 02/13/19 Range/Units 00:05 00:45 01:16 WBC (4.8-10.8) K/uL RBC (4.7-6.1) M/uL Hgb (14.0-18.0) g/dL POC Hgb 12.9 L (14.0-18.0) g/dl Hct (42-52) % POC Hct 38 L (42-52) % MCV (80-100) fL MCH (25-34) pg MCHC (32-36) g/dL RDW Std Deviation (36.4-46.3) fL RDW Coeff of Rachell (11.5-14.5) % Plt Count (130-400) K/uL MPV (7.4-10.4) fL Immature Gran % (Auto) % Neut % (Auto) % Lymph % (Auto) % [place] % (Auto) % Eos % (Auto) % Baso % (Auto) % Immature Gran # (Auto) (0.00-0.02) K/uL Neut # (Auto) (1.4-6.5) K/uL Lymph # (Auto) (1.2-3.4) K/uL [place] # (Auto) (0.11-0.59) K/uL Eos # (Auto) (0-0.5) K/uL Baso # (Auto) (0-0.2) K/uL POC Sodium 133 L (135-144) mEq/L Sodium (136-145) mmol/L POC Potassium 4.7 (3.3-5.0) mEq/L Potassium (3.5-5.1) mmol/L POC Chloride 97 L (101-112) mEq/L Chloride (98-107) mmol/L Carbon Dioxide (21-32) mmol/L POC Total CO2 24 (24-31) mEq/l Anion Gap (3-11) POC Anion Gap 17.0 (16-25) mmol/L POC BUN 18 (7-18) mg/dl BUN (7-18) mg/dl Creatinine (0.6-1.4) mg/dl POC Creatinine 0.8 (0.6-1.3) mg/dl Est Cr Clr Drug Dosing ml/min Est GFR ( Amer) Est GFR (Non-Af Amer) BUN/Creatinine Ratio (10-20) Glucose (70-99) mg/dl POC Glucose (70-99) POC Glucose (other) 692 H* (70-99) mg/dl Osmolality 314 H (280-300) mOsm/kg Calcium (8.5-10.1) mg/dl POC Ioniz Calcium [place] 1.17 (1.12-1.32) mmol/l Magnesium (1.8-2.4) mg/dl Total Bilirubin (0.2-1) mg/dl AST (15-37) U/L ALT (12-78) U/L Alkaline Phosphatase (45-117) U/L Troponin I (0-0.045) ng/ml Total Protein (6.4-8.2) gm/dl Albumin (3.4-5.0) gm/dl Globulin (2.5-4.0) gm/dl Albumin/Globulin Ratio (0.9-2) Lipase (73-393) U/L Beta-Hydroxybutyric Acd (0.2-2.81) mg/dl Urine Color Yellow Urine Appearance Clear (Clear) Urine pH 6.5 (4.5-7.5) Ur Specific [place] 1.036 H (1.000-1.030) Urine Protein Negative (Negative) Urine Glucose (UA) 3+ H (Negative) Urine Ketones Negative (Negative) Urine Blood Negative (Negative) Urine Nitrite Negative (Negative) Urine Bilirubin Negative (Negative) Urine Urobilinogen Negative (Negative) Ur Leukocyte Esterase Negative (Negative) 02/13/19 Range/Units 01:53 WBC (4.8-10.8) K/uL RBC (4.7-6.1) M/uL Hgb (14.0-18.0) g/dL POC Hgb (14.0-18.0) g/dl Hct (42-52) % POC Hct (42-52) % MCV (80-100) fL MCH (25-34) pg MCHC (32-36) g/dL RDW Std Deviation (36.4-46.3) fL RDW Coeff of Rachell (11.5-14.5) % Plt Count (130-400) K/uL MPV (7.4-10.4) fL Immature Gran % (Auto) % Neut % (Auto) % Lymph % (Auto) % [place] % (Auto) % Eos % (Auto) % Baso % (Auto) % Immature Gran # (Auto) (0.00-0.02) K/uL Neut # (Auto) (1.4-6.5) K/uL Lymph # (Auto) (1.2-3.4) K/uL [place] # (Auto) (0.11-0.59) K/uL Eos # (Auto) (0-0.5) K/uL Baso # (Auto) (0-0.2) K/uL POC Sodium (135-144) mEq/L Sodium (136-145) mmol/L POC Potassium (3.3-5.0) mEq/L Potassium (3.5-5.1) mmol/L POC Chloride (101-112) mEq/L Chloride (98-107) mmol/L Carbon Dioxide (21-32) mmol/L POC Total CO2 (24-31) mEq/l Anion Gap (3-11) POC Anion Gap (16-25) mmol/L POC BUN (7-18) mg/dl BUN (7-18) mg/dl Creatinine (0.6-1.4) mg/dl POC Creatinine (0.6-1.3) mg/dl Est Cr Clr Drug Dosing ml/min Est GFR ( Amer) Est GFR (Non-Af Amer) BUN/Creatinine Ratio (10-20) Glucose (70-99) mg/dl POC Glucose 569 H* (70-99) POC Glucose (other) (70-99) mg/dl Osmolality (280-300) mOsm/kg Calcium (8.5-10.1) mg/dl POC Ioniz Calcium [place] (1.12-1.32) mmol/l Magnesium (1.8-2.4) mg/dl Total Bilirubin (0.2-1) mg/dl AST (15-37) U/L ALT (12-78) U/L Alkaline Phosphatase (45-117) U/L Troponin I (0-0.045) ng/ml Total Protein (6.4-8.2) gm/dl Albumin (3.4-5.0) gm/dl Globulin (2.5-4.0) gm/dl Albumin/Globulin Ratio (0.9-2) Lipase (73-393) U/L Beta-Hydroxybutyric Acd (0.2-2.81) mg/dl Urine Color Urine Appearance (Clear) Urine pH (4.5-7.5) Ur Specific [place] (1.000-1.030) Urine Protein (Negative) Urine Glucose (UA) (Negative) Urine Ketones (Negative) Urine Blood (Negative) Urine Nitrite (Negative) Urine Bilirubin (Negative) Urine Urobilinogen (Negative) Ur Leukocyte Esterase (Negative) ECG Data Attestation: I personally reviewed and interpreted this ECG as follows: Indication: abdominal pain Rate (beats per minute): 56 Rhythm: sinus bradycardia Findings: + other (normal axis); no acute ischemic change Blood Pressure Blood Pressure Findings: Normal blood pressure MDM Narrative The patient is a pleasant 24-year-old gentleman with a past medical history of IDDM 1 which was recently clarified on his last admission last month in the setting of a an initial diagnosis of diabetes in April 2018 who presents emergency department with worsening abdominal pain that began today in the setting of being off of his insulin for the past week due to his inability to pay per hpi. On arrival patient is uncomfortable but no acute distress, afebrile stable vital signs. The patient appears clinically dry. He has mild epigastric discomfort without discrete tenderness. WBC, hemoglobin, platelets within normal limits. Chemistry without acidosis and normal anion gap. Electrolytes and LFTs unremarkable. Troponin negative. Serum osmolality slightly elevated at 314 however not consistent with HHS. Beta hydroxy butyric acid 1.6 UA with 3+ glucose but no ketones. Thus, patient's presentation is not consistent with DKA or HHS at this time. Patient was provided with 2 L of IV fluid upon arrival with repeat PSG resulting in improvement in his glucose from 681 down to 569 with hydration alone. Case was discussed with Dr. White, [facility] hospitalist, who will evaluate the patient for admission. Will defer insulin management to admitting team. Impression & Plan Hyperglycemic crisis in diabetes mellitus, Dehydration Discharge Plan Visit Data *Final* Discharge Date/Time: 02/13/19 02:20 Chief Complaint: Hyperglycemia Stated Complaint: HIGH BLOOD SUGAR ED Provider: Jb Ferrari Discharge Problem: Hyperglycemic crisis in diabetes mellitus, Dehydration Patient Disposition: Admitted As Inpatient Discharge Instructions Interventions: ED Discharge Assessment Last Done: 02/13/19 02:20 The scribe's documentation has been prepared under my direction and personally reviewed by me in its entirety. I confirm that the note above accurately reflects all work, treatment, procedures, and medical decision making performed by me.
[2019-02-13 05:44] LABS: BUN Creatinine Ratio 23.5 (10-20); Blood Urea Nitrogen 18 mg/dl (7-18); Calcium 8.7 mg/dl (8.5-10.1); Carbon Dioxide 27 mmol/L (21-32); Chloride 107 mmol/L (98-107); Creatinine Clr Calc Pharmacy 191.4 ml/min; Est GFR (Non-African American) 126.8; Glucose 257 mg/dl (70-99); Sodium 140 mmol/L (136-145)
[2019-02-13 05:52] LABS: Troponin I < 0.015 ng/ml (0-0.045)
--- NOTE | 2019-02-13 06:38 | XRay Report ---
XR chest 1V portable CLINICAL HISTORY: cp dyspnea COMPARISON STUDY: 01/17/2019 FINDINGS: The bones soft tissues and hemidiaphragms are normal. The cardiomediastinal silhouette is n ormal. The lungs are clear. The pulmonary vasculature is normal. IMPRESSION: Negative chest. The above report was generated using voice recognition software. It may contain grammatical, syntax or spelling errors. Electronically signed by: Robbin Todd M.D. 02/13/2019 6:36 AM
[2019-02-13] MEDS ORDERED: GLUCAGON FOR INJ 1 MG VIAL SQ PRN (07:12)
[2019-02-13] MEDS ORDERED: INSULIN ASPART 100 UNITS/ML 3 ML PEN SC SCH (07:30)
[2019-02-13] MEDS: INSULIN ASPART 100 UNITS/ML 3 ML PEN SC SCH ×3 (08:04→18:04)
[2019-02-13] MEDS ORDERED: SERTRALINE HCL 50 MG TABLET PO SCH (09:00)
[2019-02-13] MEDS ORDERED: FOLIC ACID 1 MG TAB PO SCH (09:00)
[2019-02-13] MEDS ORDERED: ENOXAPARIN INJ 40 MG/0.4 ML SYR SQ SCH (09:00)
--- NOTE | 2019-02-13 13:31 | Hospitalist Progress Note ---
Date of Service February 13, 2019 Assessment & Plan (1) Dehydration: Improved after IVF resuscitation. Tolerating PO. Denies nausea. (2) Hyperglycemic crisis in diabetes mellitus: Improved now that insulin has been restarted. Consulted glycemic pharmacist for assistance with tightening him to goal prior to discharge. I do not feel metformin will be helpful in this situation where the A1C is 13 and he is already on appropriate basal/bolus therapy. So I will discontinue this at discharge. Although he hasn't reported this, it can also contribute to GI side effects, which is another reason to avoid it. Pen needle cost is an issue, also. He was given a drug coupon for these, which is hopefully more affordable. We went over the importance of the insulin for energy production in his body. 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 He verbalized understanding with intent to comply. (3) DVT prophylaxis: SCDs/ambulation Full Dispo-continue hosptialization until sugars are at goal. Of note, his just brought in a snack of turkey sandwich, salad and a dieet coke, which he didn't mention to the nurse. She was made aware so we can cover this. Estrellita Prater DO [facility] Hospitalist Subjective Patient feeling well, he is improved from yesterday. Denies nausea and is tolerating p.o. Denies any pain at this time. Patient reports not having enough money to pay his co-pay for his insulin and did not want to bother anybody, which is why he did not say anything. He then reports seeing a case of a from using cheap insulin and decided to present to the ER. He reports that he will be financially capable of purchasing his insulin now. Review of Systems Review of Systems: All systems reviewed & are unremarkable except as noted in HPI & below Physical Exam Physical Exam: CONSTITUTIONAL: WNWD, vitals as above, generally well- appearing EYES: EOMI bilaterally, PERRL, normal conjunctivae, no scleral icterus ENT: MMM RESPIRATORY: clear to auscultation bilaterally, no crackles, rales or wheezes, normal respiratory effort CARDIOVASCULAR: regular rate and rhythm, S1 and 2 heard without murmurs, gallops or rubs, no JVD, no peripheral edema GASTROINTESTINAL: normal bowel sounds, soft, nontender MUSCULOSKELETAL: strength 5/5 throughout, head is normocephalic and atraumatic, neck supple, normal palpation of chest wall without tenderness SKIN: warm and dry, no rashes NEUROLOGIC: patellar [id number] 2+ bilat. PERRL, EOMI, no facial palsy, no dysarthria. Touch, pain and proprioception normal. CN 2-12 grossly intact, no sensory deficit, normal cognition, normal speech, no tremor PSYCHIATRIC: alert cooperative and oriented to person, place and time. Euthymic mood, makes good eye contact, language grossly intact, recent and remote memory grossly intact. LYMPHATIC: no LAD Results & Data Vital Signs (Past 12 Hours) Vital Signs Temp Pulse Resp BP Pulse Ox 02/13/19 07:19 36.4 C L 57 L 16 114/65 96 02/13/19 02:45 36.3 C L 60 16 114/65 94 02/13/19 01:55 59 L 17 125/59 L 99 Laboratory Results Short CBC 02/13/19 Range/Units 00:05 WBC 6.36 (4.8-10.8) K/uL Hgb 15.0 (14.0-18.0) g/dL Hct 40.8 L (42-52) % Plt Count 197 (130-400) K/uL BMP 02/13/19 02/13/19 00:05 05:20 Sodium 134 L 140 Potassium 4.6 4.0 Chloride 97 L 107 Carbon Dioxide 27 27 BUN 19 H 18 Creatinine 1.09 0.76 D Glucose 681 H* 257 H Calcium 9.0 8.7 Cardiac Enzymes 02/13/19 02/13/19 Range/Units 00:05 05:20 Troponin I < 0.015 < 0.015 (0-0.045) ng/ml Liver Function 02/13/19 Range/Units 00:05 Total Bilirubin 0.7 (0.2-1) mg/dl AST 8 L (15-37) U/L ALT 21 (12-78) U/L Alkaline Phosphatase 126 H (45-117) U/L Albumin 4.0 (3.4-5.0) gm/dl Urine 02/13/19 Range/Units 01:16 Urine Color Yellow Urine Appearance Clear (Clear) Urine pH 6.5 (4.5-7.5) Ur Specific [place] 1.036 H (1.000-1.030) Urine Protein Negative (Negative) Urine Glucose (UA) 3+ H (Negative) Medications Administered Current Inpatient Medications Acetaminophen (Tylenol) 650 mg PO Q6H PRN PRN Reason: Pain or Fever Stop: 03/15/19 02:51 Buspirone HCl (Buspar) 10 mg PO TID PRN PRN Reason: Anxiety Stop: 03/15/19 02:51 Dextrose (Dextrose 50%) 25 - 50 ml IV UD PRN; Protocol PRN Reason: Hypoglycemia Protocol Stop: 03/15/19 03:44 Dextrose (Dextrose 50%) 25 - 50 ml IV UD PRN; Protocol PRN Reason: Hypoglycemia Protocol Stop: 03/15/19 07:11 Enoxaparin Sodium (Lovenox) 40 mg SQ QAM [facility] Stop: 03/15/19 08:59 Last Admin: 02/13/19 08:05 Dose: 40 mg Documented by: Folic Acid (Folvite) 1 mg PO DAILY [facility] Stop: 03/15/19 08:59 Last Admin: 02/13/19 08:05 Dose: 1 mg Documented by: Glucagon (Glucagen) 1 mg IM UD PRN; Protocol PRN Reason: Hypoglycemia Protocol Stop: 03/15/19 03:44 Glucagon (Glucagen) 1 mg SQ UD PRN; Protocol PRN Reason: Hypoglycemia Protocol Stop: 03/15/19 07:11 Glucose (Glucose 40%) 15 - 30 gm PO UD PRN; Protocol PRN Reason: Hypoglycemia Protocol Stop: 03/15/19 03:44 Glucose (Dex4 Glucose) 4 - 8 tabs PO UD PRN; Protocol PRN Reason: Hypoglycemia Protocol Stop: 03/15/19 03:44 Glucose (Glucose 40%) 15 - 30 gm PO UD PRN; Protocol PRN Reason: Hypoglycemia Protocol Stop: 03/15/19 07:11 Glucose (Dex4 Glucose) 4 - 8 tabs PO UD PRN; Protocol PRN Reason: Hypoglycemia Protocol Stop: 03/15/19 07:11 Promethazine HCl 12.5 mg/ (Sodium Chloride) 50.5 mls @ 202 mls/hr IV Q6H PRN PRN Reason: Nausea And Vomiting Stop: 03/15/19 02:51 Insulin Aspart (Novolog Flexpen) 0 units SC ACHS [facility]; Protocol Stop: 03/15/19 07:14 Last Admin: 02/13/19 12:38 Dose: 6 units Documented by: Insulin Aspart (Novolog Flexpen) 0 units SC 0000,0400 [facility]; Protocol Stop: 02/14/19 04:01 Insulin Glargine (Lantus Solostar Pen) 10 units SQ NOW ONE Stop: 02/13/19 14:16 Insulin Glargine (Lantus Solostar Pen) 45 units SQ DAILY [facility] Stop: 03/16/19 08:59 Miscellaneous (Carbohydrates For Hypoglycemia) 15 - 30 gm PO UD PRN PRN Reason: Hypoglycemia Treatment Stop: 03/15/19 03:44 Miscellaneous (Carbohydrates For Hypoglycemia) 15 - 30 gm PO UD PRN PRN Reason: Hypoglycemia Treatment Stop: 03/15/19 07:11 Miscellaneous Information (Consult Glycemic Management Pharmacy) 1 ea N/A UD PRN PRN Reason: Consult Stop: 03/15/19 13:44 Nitroglycerin (Nitrostat) 0.4 mg SL UD PRN PRN Reason: Chest Pain Stop: 03/15/19 02:51 Sertraline HCl (Zoloft) 50 mg PO DAILY [facility] Stop: 03/15/19 08:59 Last Admin: 02/13/19 08:05 Dose: 50 mg Documented by: Tramadol HCl (Ultram) 25 mg PO Q4H PRN PRN Reason: Pain Stop: 03/15/19 02:51
[2019-02-13] MEDS ORDERED: PHARMACY GLYCEMIC MGMT CONSULT PRN (13:45)
[2019-02-13] MEDS ORDERED: INSULIN ASPART 100 UNITS/ML 3 ML PEN SC ONE ×2 (14:15→14:30)
[2019-02-13] MEDS ORDERED: INSULIN GLARGINE SOLOSTAR 100 UNITS/ML 3 ML PEN SQ ONE (14:15)
--- NOTE | 2019-02-13 14:47 | Pharmacy Report ---
Glycemic Control Consultation - Date of Service February 13, 2019 - Scope Scope: Glycemic Pharmacist consulted by Dr Prater on 02/13 for glycemic control and to write orders per [facility] inpatient glycemic control protocol - Objective Weight: 104.4 kg Accuchecks BSG (last 24hrs): 02/12/19 02/13/19 02/13/19 23:51 00:05 00:45 Glucose 681 H* POC Glucose 597 H* POC Glucose (other) 692 H* 02/13/19 02/13/19 02/13/19 01:53 02:47 02:49 Glucose POC Glucose 569 H* > 600 H* 562 H* POC Glucose (other) 02/13/19 02/13/19 02/13/19 04:30 05:20 05:37 Glucose 257 H POC Glucose 319 H* 279 H POC Glucose (other) 02/13/19 02/13/19 02/13/19 06:38 07:41 12:00 Glucose POC Glucose 203 H 243 H 275 H POC Glucose (other) Laboratory Data (last 24hrs): 02/13/19 02/13/19 02/13/19 00:05 00:05 05:20 Potassium 4.6 4.0 Carbon Dioxide 27 27 Anion Gap 10.0 6.0 Creatinine 1.09 0.76 D Est Cr Clr Drug Dosing 118.4 191.4 Osmolality 314 H Beta-Hydroxybutyric Acd 1.60 - Recent Pertinent Medications Outpatient Anti-diabetic Regimen: * Lantus 40 units daily * A1c = 13.1 01/17/19 The patient is currently receiving: * Basal insulin: Lantus 40 units daily * Correctional Insulin: Novolog Correction per scale ACHS Goal Range: Low 120 mg/dL - High 160 mg/dL Correction Factor: 25 mg/dL/unit * Prandial insulin: Per carb ratio of 1 unit per 15 grams CHO consumed Risk Factors for Insulin Resistance: * Diet: T2DM - Assessment & Plan Assessment & Plan: ASSESSMENT: * 24 year old recently admitted with [facility] 01/17/19, now readmitted for hyperglycemia. Spoke with provider and patient was having a hard time affording insulin at home and hadn't been taking it. Patient experiencing also GI side effects which could be related to metformin. Discussed with provider and d/t compliance issues plan on not restarting metformin on discharge * Pharmacy consulted this afternoon to help with adjusting insulin regimen. Patient already given Lantus 40 units around midnight and then 40 units this morning around 8 am. Insulin drip already dc'ed by provider earlier this morning. AG trending down, now at 6 mmol/L. Did receive fluid boluses in ED. * Lunchtime BSG elevated at 275 mg/dL - nurse already gave insulin. Per nurse patient's girlfriend also brought in a turkey sandwich - will give an additional dose of novolog for now of 5 units x 1. Provider in to talk to patient about eating food from family/etc * Will tighten CF/CR with dinner PLAN FOR INPATIENT GLYCEMIC CONTROL: * Basal insulin * Lantus 40 units ~0200 given /16 * Lantus 40 units ~0800 given 916 AM * Bolus insulin * NovoLog per scale ACHS or Q6hrs while NPO * Goal Range: Low 120 mg/dL - High 160 mg/dL * Correction Factor: 25 mg/dL/unit * Nutritional / Prandial insulin per carb ratio of 1 unit per 7 grams CHO consumed * Please note that the plan above was derived based on current level of insulin resistance and hospital stress. These recommendations are appropriate for inpatient admission only. Plan of care upon discharge will need to be reassessed to avoid potential outpatient hypo/hyperglycemia. Thank you.
--- NOTE | 2019-02-13 16:38 | Discharge Summary ---
Date of Service February 13, 2019 Admission HPI Per Admitting Provider History obtained from patient, family, and records. Medical history significant for DM, anxiety/PTSD, chronic pain as per records, ongoing tobacco abuse. Recent confinement last month for hyperglycemic crisis. Patient presented with BSG of 700. Patient discharged on home insulin and Metformin regimen. Outpatient [facility] Endocrinology consultation contemplated next week Patient compliant with diet and medications until last week when he ran out of insulin. Patient's deciding miscommunication between PCP's office and pharmacy. Home glucometer not registering sugars in the last few days. Intermittent sleepiness at home. Transient achy left-sided abdominal pain going to the chest without shortness of breath without cough symptoms. Discomfort similar to recent confinement for high sugars. Denies diarrhea/dysuria. IV insulin administered for BSG 680 upon arrival at the ER. 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 Exam Per Admitting Provider GENERAL: Comfortable, overweight, episodic sleepiness, no respiratory distress SKIN: Normal color, warm HEENT: [place] palpebral conjunctivae, no ptosis, dry buccal mucosa NECK : Supple, short neck, no tenderness CHEST : CTA, no tenderness HEART : Bradycardic , no obvious murmurs ABDOMEN: Some distention, nontender EXTREMITIES : No LE swelling/tenderness, no other conspicuous deformities noted NEUROLOGIC : Coherent, episodic sleepiness, no facial asymmetry, no other gross focality Principal Diagnosis Uncontrolled DMII Discharge Data Allergies Allergy/AdvReac Type Severity Reaction Status Date / Time No Known Allergies Allergy Verified 02/13/19 00:08 Consultations 02/13/19 01:12 ED Decision to Admit Stat 02/13/19 02:52 Consult Case Management - Discharge Planning Routine Hospital Course (1) Dehydration: (2) Hyperglycemic crisis in diabetes mellitus: 24 yo uncontrolled diabetic man presented with blood sugars into the 700s and an A1C >13 after he ran out of insulin and reports not being able to afford more. He became nauseated and developed some chest pain that resolved with IVF resuscitation. Serial cardiac markers were negative and there were no concerning findings on EKG and no events on telemetry. Insulin was started with drastic improvement in both glucose values and clinical symptoms within 24 hours. As he was on basal and bolus therapy already, I discontinued metformin at time of discharge. Despite his numbers in the 270s the following day and my strong recommendation that he stay, he decided to be discharged home. At time of discharge he was hemodynamically stable and afebrile and was tolerating PO. He was mentating and ambulating at baseline. Physical exam was normal. He was discharged home in stable condition with an insulin bottle in hand and close primary care follow-up recommended. I did ensure that he could brick picker insulin and pen needles the following day with his [facility] pharmacist. Total Time Total Time Spent Total Time Spent (In Minutes): 60 Total Time Includes: Examination of the Patient, Discharge Planning, Medication Reconciliation, Communication With Other Providers and Other (arranged follow- up) Discharge Plan Discharge Items Patient Disposition: Home - Self-Care Reason For Visit: HYPERGLYCEMIC CRISIS, CP Discharge Diagnosis: Uncontrolled DMII Condition on Discharge: Good Health Concerns: Needs close follow-up with PCP and Endocrinology for tight glucose control. Goals: Decreased HbA1C to <7 within 6 months. Activity: Resume your previous activity Non-emergency contact: Primary Care Provider Call non-emergency contact if: you have any medication questions, your symptoms worsen, your pain is not controlled, your pain is worsening, your pain is unusual for you, your pain is concerning for you and you have a fever Follow-up/Referrals: Vance Buitrago MD [Primary Care Provider] - Diet: Carb Consistent or DM2 Addtl Attending Provider Instructions: Please take all medications as instructed on discharge list below. Please follow-up with primary care doctor within 1 week of discharge. Someone from our staff will contact you tomorrow to set this up. Please check your blood sugar a minimum of twice daily, once fasting prior to breakfast and once 2 hours after your heaviest meal the day. Keep a log of this and bring to every doctor's appointment in the next month. It was a pleasure taking care of you! Please call if you have any questions or problems. You can reach a [facility] hospitalist on duty at [facility] 24 hours a day by calling [phone]. Take care of yourself. Estrellita Prater, DO [facility] Hospitalist Pending Studies at Discharge: No Stand-Alone Forms: [facility], Work/School Release (Inpt) Medications and DC Order Prescriptions: Continued sertraline 50 mg tablet 50 mg PO DAILY RF: 0 Basaglar KwikPen U-100 Insulin 100 unit/mL (3 mL) Insulin Pen 40 unit SUBCUT DAILY 30 Days Qty: 3 RF: 4 Novolog Flexpen U-100 Insulin 100 unit/mL (3 mL) insulin pen 4 units SQ TID Qty: 15 RF: 4 buspirone 10 mg Tablet 10 mg PO TID PRN (Reason: Anxiety) RF: 0 folic acid 1 mg Tablet 1 mg PO DAILY RF: 0 Discontinued metformin 500 mg Tablet 1,000 mg PO DIRECTED Qty: 60 RF: 4 Discharge Orders: Discharge Order (Routine); Ordered 02/13/19 Ordered By: Estrellita Prater Admission Data Admit Date/Time: 02/13/19 02:06 Attending Provider: Estrellita Prater Admit Provider: Jose White Primary Care Provider: Vance Buitrago Other Providers: Jose White Other Interventions: Discharge Summary Assessment (RN) Last Done: 02/13/19 17:56 DC Date/Time DO NOT enter until pt leaves facility: 02/13/19 18:48
[2019-02-14] MEDS ORDERED: INSULIN ASPART 100 UNITS/ML 3 ML PEN SC SCH
[2019-02-14] MEDS ORDERED: INSULIN HUMAN REGULAR IV BOLUS 2.5 UNITS in SYRINGE 0 ML IV SCH (03:00)
[2019-02-14] MEDS ORDERED: INSULIN GLARGINE SOLOSTAR 100 UNITS/ML 3 ML PEN SQ SCH ×2 (09:00)
== END 2019-02-13 18:48 | disposition home or self-care (01) ==
LOC: 2N 23:39 → ED 23:39 → 2N 02-13 02:20

== ENCOUNTER 2019-05-14 20:00 | Inpatient (IN) ==
[2019-05-14] MEDS ORDERED: SODIUM CHLORIDE 0.9% 1000ML 1,000 ML IV ONE (20:28)
[2019-05-14 21:09] LABS: Base Excess VBG 0.3 mEq/L; Oxygen Saturation VBG 89.1 %; pH VBG 7.38 (7.36-7.41)
[2019-05-14 21:20] LABS: Albumin Globulin Ratio 1.3 (0.9-2); Albumin Level 3.8 gm/dl (3.4-5.0); BUN Creatinine Ratio 15.5 (10-20); Bilirubin,Total 0.9 mg/dl (0.2-1); Est GFR (African American) 113.8; Est GFR (Non-African American) 98.2; Globulin 2.9 gm/dl (2.5-4.0); Potassium 4.7 mmol/L (3.5-5.1); Total Protein 6.7 gm/dl (6.4-8.2)
[2019-05-14 21:21] LABS: Beta-Hydroxybutyrate 8.36 mg/dl (0.2-2.81)
[2019-05-14] MEDS ORDERED: NovoLIN-R INSULIN PER UNIT CHARGE IV STA (21:29)
[2019-05-14 21:50] LABS: Basophils # (auto) 0.01 K/uL (0-0.2); Basophils % (auto) 0.2 %; Eosinophils # (auto) 0.09 K/uL (0-0.5); Hematocrit (blood only) 54.5 % (42-52); Hemoglobin 15.4 g/dL (14.0-18.0); Immature Granulocytes # (auto) 0.01 K/uL (0.00-0.02); Immature Granulocytes % (auto) 0.2 %; Lymphocytes % (auto) 24.9 %; Mean Corpuscular Hemoglobin 29.8 pg (25-34); Mean Corpuscular Hgb Conc 35.8 g/dL (32-36); Mean Corpuscular Volume 80.7 fL (80-100); Monocytes % (auto) 6.8 %; Neutrophils # (auto) 2.91 K/uL (1.4-6.5); Neutrophils % (auto) 65.9 %; Platelet Count 265 K/uL (130-400); Red Blood Count 5.17 M/uL (4.7-6.1); White Blood Count 6.25 K/uL (4.8-10.8)
--- NOTE | 2019-05-14 21:51 | XRay Report ---
XR chest 2V PA/lateral CLINICAL HISTORY: 24 years-old Male presenting with hyperglycemia/dizzy eval for pna. TECHNIQUE: PA and lateral views of the chest were obtained. COMPARISON: 02/13/2019. FINDINGS: Cardiomediastinal silhouette normal. No focal opacity. No large effusion or pneumothorax. Osseous str uctures normal. Upper abdomen normal. IMPRESSION: 1. No acute cardiopulmonary disease. Electronically signed by: Emil Gardner M.D. 05/14/2019 9:49 PM
--- NOTE | 2019-05-14 22:57 | Emergency Department Note ---
Entered by Tee Del Real acting as a scribe for History of Present Illness General Chief complaint: Hyperglycemia Stated complaint: HIGH BLOOD SUGAR Time Seen by Provider: 05/14/19 20:20 Source: patient Limitations: no limitations History of Present Illness Onset (ago): week(s) 2 Location: head Severity: similar to prior episodes Maximum Pain Intensity: 0 Associated symptoms: + denies other symptoms (trouble breathing), + confusion and + other (frequent urination, blood in stool, fatigued, dizzy, ); no chest pain and no fever/chills (fevers) Treatments prior to arrival: other (insulin) The patient is a 24 year old male who presents to the Emergency Room with complaints of hyperglycemia starting two weeks ago. The patient states he missed his endocrinology appointment during January. He states he saw a continuous spike of his blood sugar and decided to up his dosage of insulin. He states he takes 12 doses of insulin after each meal. He states he takes an additional 3 un its of insulin as needed. The patient states he is feeling a lot worse tonight. He notes he has been urinating more frequently. He states he feels a lot of pressure in his bladder and feels like he is not emptying it. He states he has blood in his stool. He notes he has been more fatigued, confused, and dizzy. He states He states he had a couple sodas today. He states he did not see his PCP and notes his PCP is Dr. Anderson. He denies having fevers, chest pain, and trouble breathing. Home Medications Home Medications Medication Instructions Recorded Confirmed Type sertraline 50 mg PO HS 01/17/19 05/14/19 History folic acid 1 mg PO DAILY 02/13/19 05/14/19 History albuterol sulfate 90 mcg/actuation 2 puffs INH Q6H PRN 02/17/19 05/14/19 History aerosol inhaler blood sugar diagnostic #10 ea 02/17/19 02/17/19 History blood-glucose meter #1 ea 02/17/19 02/17/19 History metformin 500 mg tablet 500 mg PO BID 02/17/19 05/14/19 History pen needle, diabetic 31 gauge x #30 ea 02/17/19 02/17/19 History 08/13" Basaglkathie MorenoPen U-100 Insulin 40 unit SUBCUT QAM 05/14/19 05/14/19 History Novolog Flexpen U-100 Insulin 12 units SQ TID 05/14/19 05/14/19 History Allergies Allergy/AdvReac Type Severity Reaction Status Date / Time No Known Allergies Allergy Verified 05/14/19 20:53 Past Med/Surg History Medical History Abscess (Acute) Anxiety Cellulitis (Acute) Diabetes Diabetes Hyperglycemia due to type 2 diabetes mellitus (Inactive) Prepatellar bursitis, right knee (Resolved) Family History Other Diabetes Social History Preferred Language: German Communication Ability: Effective [employer] Instruments Inspector Required: No Beliefs That Will Affect Care: None Current Living Situation: Spouse and Family Feels Safe at Home: Yes Smoking Status: Former smoker Second Hand Exposure: Yes ; Hx Alcohol Use: No Hx Substance Use: No Review of Systems See HPI for pertinent positives & negatives. and A total of 10 systems reviewed and were otherwise negative Physical Exam Vital Signs Vital Signs - 24 hr 05/14/19 20:06 05/14/19 22:01 Temperature 36.4 C L Temperature Source Oral Pulse Rate 64 Pulse Rate [Apical] 70 Pulse Rhythm Regular Respiratory Rate 20 15 Respiratory Effort / Characteristics Non-Labored Non-Labored Spontaneous Respiratory Depth Normal Normal Respiratory Pattern Regular Regular Blood Pressure 128/68 Blood Pressure [Right Arm] 106/89 Blood Pressure Mean 88 Blood Pressure Mean [Right Arm] 94 Blood Pressure Position Sitting Blood Pressure Position [Right Arm] Lying Pulse Oximetry 98 97 Oxygen Delivery Method Room Air Room Air Sepsis Recent Fever Within 48 Hours No Sepsis Action Taken by Nursing No Action Required Constitutional: Vital signs reviewed. Eyes: Pupils are equal round reactive to light. Conjunctiva are noninjected. ENT: Pharynx is clear without erythema or exudate. Mucous membranes are dry. Neck supple without meningeal signs. Respiratory: Clear to auscultation bilaterally. Breath sounds are equal bilaterally. Cardiovascular: Regular rate and rhythm. No rubs or gallops. GI: Soft, nondistended and nontender. Bowel sounds are present. Musculoskeletal: No peripheral edema. No lower extremity tenderness. Integumentary: No cyanosis. Neurological: The patient is awake and alert. No focal deficits. Psychiatric: Normal affect. Course Course 2021: The patient was evaluated in room B3B, and a complete history and physical examination were performed. 2204: I spoke to the patient about his test results. 2209: I discussed the patient's case with Dr. Xavier Guevara Hospitalist. He will evaluate the patient for further management Administered Medications Discontinued Medications Sodium Chloride (Nss 1000ml) 1,000 mls @ 999 mls/hr IV .Q1H1M ONE Stop: 05/14/19 21:28 Last Infusion: 05/14/19 21:51 Dose: 0 mls/hr Documented by: [id number] Admin: 05/14/19 20:30 Dose: 999 mls/hr Documented by: [id number] Insulin Human Regular (Novolin R U-100 Per Unit) 10 units IV NOW STA Stop: 05/14/19 21:30 Last Admin: 05/14/19 21:56 Dose: 10 units Documented by: [id number] Cosigned by: [id number] Medical Decision Making Differential Diagnosis Differential Diagnosis includes but is not limited to dietary indiscretion, DKA, dehydration, infection, and UTI. Medical Records Attestation: I reviewed the patient's medical records. The patient was seed in the ED in January for high blood sugars. He was hospitalized and treated with insulin. Home Medications Current Medication List: was personally reviewed by me Laboratory Data Attestation: I reviewed the patient's lab results. Result diagrams: 05/14/19 20:30 05/14/19 20:30 Lab Results 05/14/19 05/14/19 05/14/19 Range/Units 20:30 20:30 20:57 WBC 6.25 (4.8-10.8) K/uL RBC 5.17 (4.7-6.1) M/uL Hgb 15.4 (14.0-18.0) g/dL Hct 54.5 H (42-52) % MCV 80.7 (80-100) fL MCH 29.8 (25-34) pg MCHC 35.8 (32-36) g/dL Plt Count 265 (130-400) K/uL Immature Gran % (Auto) 0.2 % Neut % (Auto) 65.9 % Lymph % (Auto) 24.9 % [place] % (Auto) 6.8 % Eos % (Auto) 2.0 % Baso % (Auto) 0.2 % Immature Gran # (Auto) 0.01 (0.00-0.02) K/uL Neut # (Auto) 2.91 (1.4-6.5) K/uL Lymph # (Auto) 1.10 L (1.2-3.4) K/uL [place] # (Auto) 0.30 (0.11-0.59) K/uL Eos # (Auto) 0.09 (0-0.5) K/uL Baso # (Auto) 0.01 (0-0.2) K/uL VBG pH 7.38 (7.36-7.41) VBG pCO2 44 (38-50) mmHg VBG pO2 56 mmHg VBG HCO3 26 mmol/L VBG O2 Saturation 89.1 % VBG Base Excess 0.3 mEq/L Barometric Pressure 736.0 mm/Hg Sodium 127 L (136-145) mmol/L Potassium 4.7 (3.5-5.1) mmol/L Chloride 92 L (98-107) mmol/L Carbon Dioxide 25 (21-32) mmol/L Anion Gap 10.0 (3-11) BUN 16 (7-18) mg/dl Creatinine 1.05 (0.6-1.4) mg/dl Est Cr Clr Drug Dosing 125.0 ml/min Est GFR ( Amer) 113.8 Est GFR (Non-Af Amer) 98.2 BUN/Creatinine Ratio 15.5 (10-20) Glucose 815 H* (70-99) mg/dl Calcium 9.0 (8.5-10.1) mg/dl Total Bilirubin 0.9 (0.2-1) mg/dl AST 13 L (15-37) U/L ALT 32 (12-78) U/L Alkaline Phosphatase 143 H (45-117) U/L Total Protein 6.7 (6.4-8.2) gm/dl Albumin 3.8 (3.4-5.0) gm/dl Globulin 2.9 (2.5-4.0) gm/dl Albumin/Globulin Ratio 1.3 (0.9-2) Beta-Hydroxybutyric Acd 8.36 H (0.2-2.81) mg/dl Imaging Data Radiologist's Impression: Radiology results as stated below per my review and the radiologist's interpretation: XR chest 2V PA/lateral CLINICAL HISTORY: 24 years-old Male presenting with hyperglycemia/dizzy eval for pna. TECHNIQUE: PA and lateral views of the chest were obtained. COMPARISON: 02/13/2019. FINDINGS: Cardiomediastinal silhouette normal. No focal opacity. No large effusion or pneumothorax. Osseous structures normal. Upper abdomen normal. IMPRESSION: 1. No acute cardiopulmonary disease. Electronically signed by: Emil Gardner M.D. 05/14/2019 9:49 PM Blood Pressure Blood Pressure Findings: Elevated blood pressure Blood Pressure Disposition: elevated BP felt to be situational MDM Narrative I did evaluate the patient as noted above. The patient is presenting with significant hyperglycemia for the past week. He has been managing his own diabetes because he missed an endocrinology appointment. He also states that he drank some soda today which she knows he should not be having. He complains of being dizzy and weak. He is nauseated but not throwing up. He denies any chest pain or shortness of breath. IV access was established. The patient was placed on a continuous environmental monitoring technician. Blood sugar was read as high. I did start him on normal saline IV. I did order and personally reviewed the images of the patient's chest x-ray as described above. No evidence of infection. I did order a urine analysis. He was not able to give us a urine sample. I did order and review the patient's blood work as noted in the electronic medical record. He has severe hyperglycemia with a blood sugar of 815. I did treat him with insulin 10 units IV regular. He does not have any ketoacidosis but he does have significantly elevated serum ketones. I did discuss the test results with him. He will be hospitalized for further care and evaluation. I did discuss the case with hospitalist and community case manager. Impression & Plan Hyperglycemic crisis in diabetes mellitus, Dizziness Discharge Plan Visit Data Chief Complaint: Hyperglycemia Stated Complaint: HIGH BLOOD SUGAR ED Provider: Eliceo García Discharge Problem: Hyperglycemic crisis in diabetes mellitus, Dizziness Forms Stand Alone Forms: My [facility] Prescriptions Prescriptions: No Action (DME) pen needle, diabetic [Easy Comfort Pen [place]] 31 gauge x 3/16" needle See Dose Instructions .[facility] Qty: 30 RF: 0 (DME) blood-glucose meter [OneTouch Verio Flex] misc See Dose Instructions .ROUTE .MEDSUPPLY Qty: 1 RF: 0 (DME) OneTouch Verio strip See Dose Instructions .ROUTE .MEDSUPPLY Qty: 10 RF: 0 albuterol sulfate [ProAir HFA] 90 mcg/actuation HFA aerosol inhaler 2 puffs INH Q6H PRN (Reason: Shortness Of Breath) RF: 0 metformin 500 mg tablet 500 mg PO BID RF: 0 sertraline 50 mg tablet 50 mg PO HS RF: 0 Novolog Flexpen U-100 Insulin 100 unit/mL (3 mL) insulin pen 12 units SQ TID RF: 0 Basaglar KwikPen U-100 Insulin 100 unit/mL (3 mL) insulin pen 40 unit SUBCUT QAM RF: 0 folic acid 1 mg Tablet 1 mg PO DAILY RF: 0 The scribe's documentation has been prepared under my direction and personally reviewed by me in its entirety. I confirm that the note above accurately reflects all work, treatment, procedures, and medical decision making performed by me.
[2019-05-14] MEDS ORDERED: LORazepam 1 MG TAB SL STA (23:12)
[2019-05-15] MEDS ORDERED: ONDANSETRON INJ 2 MG/ML 2 ML VIAL IV PRN (00:13)
[2019-05-15] MEDS ORDERED: DC ALL PREVIOUSLY ORDERED DIABETES MEDS ONE (00:13)
[2019-05-15] MEDS ORDERED: NITROGLYCERIN SL 0.4 MG/TAB TAB SL PRN (00:13)
[2019-05-15] MEDS ORDERED: HHS GOAL RANGE 250-350 mg/dl ONE (00:13)
[2019-05-15] MEDS ORDERED: SODIUM CHLORIDE 0.9% 1000ML 1,000 ML IV SCH (00:13)
[2019-05-15] MEDS ORDERED: ACETAMINOPHEN 325 MG TAB PO PRN (00:13)
[2019-05-15] MEDS ORDERED: PHARMACY GLYCEMIC MGMT CONSULT PRN (00:24)
--- NOTE | 2019-05-15 00:24 | History and Physical Report ---
DATE OF ADMISSION: 05/14/2019 CHIEF COMPLAINT: Hyperglycemia. HISTORY OF PRESENT ILLNESS: A 24-year-old male with past medical history significant for type 1 diabetes diagnosed in April 2018, generalized anxiety disorder, posttraumatic stress disorder, presents with hyperglycemia. 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 He says in the process he lost his insurance and his also works and he is having a lot of financial stress and he is supposed to take Basaglar insulin 40 units daily and NovoLog 10 units t.i.d., but he is saying he is missing his Basaglar insulin. He takes it every alternate day to save the cost and a few days ago, he felt somewhat nauseous, but today he felt somewhat dizzy, not feeling well, and his blood sugar in the monitors was reading high, so he came to the ER and his blood sugar was found to 850, but the patient is not in DKA. He was tearful and he wanted to get discharged because he has to baby sit his daughter and his has job tomorrow and he does not want his to lose job as they are already in financial stress. The was also in the room. He wanted to sign out AMA, but later decided to stay in the hospital. His is going to call her workplace tomorrow for leave. He had some headache earlier. No blurred vision, no earache, no runny nose, no sore throat, no chest pain, no shortness of breath, no cough, no fever, no chills, no nausea, no abdominal pain currently. Normal bowel movements, no blood in stools or black stools, no hematuria. He has had frequent urination. No rash. Currently resting comfortably and hemodynamically stable.Supposed to see endocrinology but missed appointment.Not following with family doctor. ALLERGIES: No known drug allergies. PAST MEDICAL HISTORY: As mentioned above. PAST SURGICAL HISTORY: Knee arthroscopy, dental surgery, appendectomy. MEDICATIONS: Supposed to be on Basaglar insulin 40 units q.a.m., folic acid 1 mg daily, NovoLog 12 units t.i.d., sertraline 50 mg p.o. at bedtime, albuterol p.r.n. FAMILY HISTORY: No family history on file. SOCIAL HISTORY: Former smoker, quit in November 2018. Smoked 0.1 pack a day for 2 years. No alcohol use, no drug use. He is and lives with his and daughter. REVIEW OF SYSTEMS: As per HPI. Rest of the review of systems negative. PHYSICAL EXAMINATION: GENERAL: The patient is of moderate build, not in acute distress. VITAL SIGNS: Temperature 36.4, pulse 65, respiratory rate 16, blood pressure 140/79, oxygen 96% on room air. HEENT: No pallor, no icterus. Pupils equal, round, reactive to light. NECK: No JVD, no neck masses, no carotid bruits. CARDIOVASCULAR: S1, S2 heard, regular rate and rhythm. No murmur, no gallop. RESPIRATORY SYSTEM: Normal AP diameter. No accessory muscle use. No wheezing, no crackles. ABDOMEN: Soft, bowel sounds present, nontender. No distention. CENTRAL NERVOUS SYSTEM: Cranial nerves II-XII grossly intact. Nonfocal. EXTREMITIES: No edema, no erythema. LABORATORY DATA: WBC 6.2, hemoglobin 15.4, hematocrit 54.5, platelets 265. Venous blood gas, pH of 7.3, pCO2 of 44, pO2 of 56, bicarbonate 26, oxygen 99.1%. Sodium 127, potassium 4.7, chloride 92, CO2 of 25, BUN 16, creatinine 1.05, serum glucose 815, calcium 9, total bilirubin 0.9, AST 13, ALT 32, alkaline phosphatase 143, total protein 6.7. Beta hydroxybutyric acid 8.3. IMAGING DATA: Chest x-ray: No acute cardiopulmonary disease. ASSESSMENT AND PLAN: This is a 24-year-old male with type 1 diabetes, he is noncompliant with insulin regimen, comes with hyperglycemia. 1. Hyperglycemia, uncontrolled diabetes type 1, noncompliant with his insulin regimen, not in DKA. Blood sugar is 850. Got 10 units of insulin in the ER and repeat is 450. We will start him on insulin drip low dose protocol, and closely monitor in the tele floor. Labs as per protocol. We will place him on normal saline 200 mL per hour and change to maintenance fluids as per protocol. When his sugar is under control, we will change him back to his long-acting insulin and short-acting. Glycemic pharmacy consult and also diabetic education.Advised to follow with PCP closely until seen by endocrinology. 2. Pseudohyponatremia. Sodium of 127. Measured sodium is 141. We will follow the labs. 3. Posttraumatic stress disorder and generalized anxiety disorder. Continue Zoloft. Got a dose of Ativan in the ER. 4. Deep venous thrombosis prophylaxis, sequential compression devices for now. 5. Disposition: Monitor in tele floor. Expect discharge home and follow with family doctor. Level 1 full code. MTDD
[2019-05-15] MEDS ORDERED: ALBUTEROL HFA 8 GM INHALER INH PRN (00:39)
[2019-05-15] MEDS: INSULIN REGULAR 250 UNITS in SODIUM CHLORIDE 0.9% 247.5 ML IV SCH (00:57)
[2019-05-15 01:21] LABS: Appearance Urine Clear (Clear); Bilirubin Urine Negative (Negative); Blood Urine Negative (Negative); Color Urine Yellow; Glucose Urine UA 3+ (Negative); Ketones Urine 1+ (Negative); Leukocyte Esterase Urine Negative (Negative); Nitrite Urine Negative (Negative); Protein Urine Negative (Negative); Urobilinogen Urine Negative (Negative)
[2019-05-15 02:50] LABS: BUN Creatinine Ratio 23.3 (10-20); Calcium 8.2 mg/dl (8.5-10.1); Creatinine Clr Calc Pharmacy 175.1 ml/min; Est GFR (African American) 147.8; Est GFR (Non-African American) 127.5; Potassium 3.5 mmol/L (3.5-5.1)
[2019-05-15] MEDS ORDERED: SODIUM CHLOR 0.45% + 20MEQ KCL 20 MEQ/1,000 ML BAG IV SCH (03:15)
[2019-05-15 03:18] LABS: Beta-Hydroxybutyrate 18.33 mg/dl (0.2-2.81)
[2019-05-15] MEDS ORDERED: GLUCOSE 40% GEL 15 GM TUBE PO PRN (03:30)
[2019-05-15] MEDS ORDERED: DEXTROSE 50% 50 ML SYRINGE IV PRN (03:30)
[2019-05-15] MEDS ORDERED: GLUCAGON FOR INJ 1 MG VIAL SQ PRN (03:30)
[2019-05-15] MEDS ORDERED: CARBOHYDRATES FOR HYPOGLYCEMIA PO PRN (03:30)
[2019-05-15] MEDS ORDERED: GLUCOSE 10 TABS/TUBE PO PRN (03:30)
[2019-05-15] MEDS: PENDING D5 1/2NS+20mEq KCL IVF SCH ×2 (03:50→05:17)
[2019-05-15] MEDS: PENDING 1/2NSS+20mEq KCL IVF SCH ×2 (04:37→04:38)
[2019-05-15] MEDS ORDERED: D5W AND 1/2NSS + 20MEQ KCL 20 MEQ/1,000 ML BAG IV SCH (05:15)
[2019-05-15 06:57] LABS: Estimated Average Glucose 355 mg/dl
[2019-05-15] MEDS: FOLIC ACID 1 MG TAB PO SCH (07:59)
[2019-05-15] MEDS: INSULIN ASPART 100 UNITS/ML 3 ML PEN SC SCH ×4 (07:59→20:42)
[2019-05-15] MEDS ORDERED: INSULIN GLARGINE SOLOSTAR 100 UNITS/ML 3 ML PEN SC STA (08:06)
[2019-05-15] MEDS: SODIUM CHLOR 0.45% + 20MEQ KCL 20 MEQ/1,000 ML BAG IV SCH (11:10)
--- NOTE | 2019-05-15 14:23 | Hospitalist Progress Note ---
Date of Service May 15, 2019 Assessment & Plan (1) Severe hyperglycemia due to diabetes mellitus: Type 1 DM very poorly controlled HbA1c 14 medication non compliance multiple recent admissions with similar situation -hyperglycemia /DKA pt reports of not able to afford Basalglar Insulin pen ( does not have medical insurance ) has been rationing his insulin BSG > 400 , with betahydroxy butyrate > 18 pt stated on IV insulin gtt ,IV hydration appreciate pharmacy input for glycemic management pt will be switched to insulin 70/30 , so he can utilize Relion insulin 70/30 with is quite affortable $ 25 pt is counselled regarding diabetic management risk of developing end stage renal disease -dialysis in future /vision loss /stroke /heart attack if blood sugar is not adequately controlled pt verbalized understanding public health educator consulted pt is scheduled to follow up at [facility] diabetic /endocrine clinic next week (2) Diabetes: Type 1 DM , poorly controlled presented with hyperglycemia management as discussed above full code DISPOSITION : will be discharged home when medically stable Subjective pt says he feels much better after getting IV hydration and insulin no fever or chills denies of feeling dizzy and lightheaded , no visual symptoms no nausea/vomiting or abdominal pain Review of Systems 2 Review of Systems: All systems reviewed & are unremarkable except as noted in HPI & below Physical Exam Constitutional: WD/WN, vitals as above no acute distress ENMT: external ear and nose normal, oropharynx normal Neck: trachea midline, no thyromegaly Respiratory: normal respiratory effort, lungs clear to auscultation Cardiovascular: RRR, no murmur, no edema Gastrointestinal (Abdomen): normal bowel sounds, soft, nontender, no hepatosplenomegaly Musculoskeletal: no cyanosis or clubbing, extremities motor strength 5/5 Skin: no rashes, warm and dry Neurologic: PERRL, EOMI, accommodation nl, no face palsy, no dysarthria Psychiatric: A+Ox3, euthymic affect Results & Data Vital Signs (Past 12 Hours) Vital Signs Temp Pulse Pulse Resp BP BP Pulse Ox 05/15/19 11:41 36.5 C 49 L 19 119/72 97 05/15/19 08:00 60 05/15/19 07:13 36.6 C 56 L 18 104/63 97 05/15/19 04:10 36.7 C 51 L 17 117/65 97 (1) Diabetes Diabetes mellitus complication status: with hyperglycemia Diabetes mellitus type: type 1 Qualified Code(s): E10.65 - Type 1 diabetes mellitus with hyperglycemia
--- NOTE | 2019-05-15 14:52 | Pharmacy Report ---
Glycemic Control Consultation - Date of Service May 15, 2019 - Scope Scope: Glycemic Pharmacist consulted by Dr aPrk on 05/14/19 for glycemic control and to write orders per [facility] inpatient glycemic control protocol - Objective Weight: 96.6 kg Accuchecks BSG (last 24hrs): 05/14/19 05/14/19 05/14/19 20:21 20:28 20:30 Glucose 815 H* POC Glucose > 600 H* > 600 H* 05/14/19 05/14/19 05/15/19 22:16 23:14 00:10 Glucose POC Glucose > 600 H* 452 H* 434 H* 05/15/19 05/15/19 05/15/19 01:58 02:20 03:03 Glucose 412 H* POC Glucose 379 H* 384 H* 05/15/19 05/15/19 05/15/19 04:00 05:06 06:28 Glucose POC Glucose 349 H* 257 H 322 H* 05/15/19 05/15/19 05/15/19 07:32 08:31 10:14 Glucose POC Glucose 280 H 347 H* 360 H* 05/15/19 05/15/19 05/15/19 11:02 12:08 12:10 Glucose POC Glucose 351 H* 83 303 H* 05/15/19 05/15/19 05/15/19 12:12 13:08 14:04 Glucose POC Glucose 311 H* 352 H* 395 H* Laboratory Data (last 24hrs): 05/14/19 05/15/19 20:30 02:20 Potassium 4.7 3.5 D Carbon Dioxide 25 26 Anion Gap 10.0 8.0 Creatinine 1.05 0.75 D Est Cr Clr Drug Dosing 125.0 175.1 Beta-Hydroxybutyric Acd 8.36 H 18.33 H HbA1c: Hemoglobin A1c Cancelled 05/15/19 02:20 - Recent Pertinent Medications Outpatient Anti-diabetic Regimen: * Basaglar 40u QAM, Novolog 12u TIDM, Metformin * A1c = 14 % 05/14/19 - Assessment & Plan Assessment & Plan: ASSESSMENT: * Mr. Cross is a 24yo M type I diabetic. He was diagnosed with type I diabetes in April 2018. PMHx consistent with: PTSD, YISEL. Outpt glycemic management i s poor as evidenced by his A1C of 14%. He is not on any atypical antipsychotics that could worsen his A1C. * Per my discussion with him, he does not take his insulin as prescribed. He takes Basaglar 40u Q2D due to it's cost with his insurance. I would recommend potentially discharging him home on a more affordable insulin such as ReliOn 70/30 or ReliOn NPH + Regular insulin. * BSGs >300s for the most part today, likely due to basal deficiency and some snacking between meals. He is not in DKA. PLAN FOR INPATIENT GLYCEMIC CONTROL: * Starting IV insulin infusion per moderate stress protocol * Goal Range 150 - 250 mg/dl * In the critical care setting, continuous IV insulin infusion has been shown to be the best method for achieving glycemic targets. * Holding outpatient oral diabetes medications * Basal insulin * Lantus 40 units given this AM. We will try using NPH going forward in hopes of potentially d/c'ing him home on ReliOn 70/30 * NPH scale with dinner tonight x1: please see MAR for further details * NPH 40u tomorrow morning * Bolus insulin * NovoLog to cover carbs while on insulin gtt * Please note that the plan above was derived based on current level of insulin resistance and hospital stress. These recommendations are appropriate for inpatient admission only. Plan of care upon discharge will need to be reassessed to avoid potential outpatient hypo/hyperglycemia. Thank you. .
[2019-05-15 15:37] LABS: BUN Creatinine Ratio 12.5 (10-20); Beta-Hydroxybutyrate 2.15 mg/dl (0.2-2.81); Calcium 8.6 mg/dl (8.5-10.1); Creatinine Clr Calc Pharmacy 123.9 ml/min; Est GFR (African American) 112.5; Est GFR (Non-African American) 97.1
[2019-05-15] MEDS ORDERED: INSULIN HUMAN NPH SC ONE (16:30)
[2019-05-15 19:30] LABS: Potassium 4.3 mmol/L (3.5-5.1)
[2019-05-15] MEDS ORDERED: SERTRALINE HCL 50 MG TABLET PO SCH (21:00)
[2019-05-15] MEDS ORDERED: INSULIN GLARGINE SOLOSTAR 100 UNITS/ML 3 ML PEN SC ONE (21:00)
[2019-05-16] MEDS: SODIUM CHLOR 0.45% + 20MEQ KCL 20 MEQ/1,000 ML BAG IV SCH (00:07)
[2019-05-16] MEDS: INSULIN REGULAR 250 UNITS in SODIUM CHLORIDE 0.9% 247.5 ML IV SCH (02:08)
[2019-05-16] MEDS ORDERED: INSULIN HUMAN NPH SC SCH (07:30)
[2019-05-16] MEDS: INSULIN ASPART 100 UNITS/ML 3 ML PEN SC SCH ×3 (08:35→11:56)
[2019-05-16] MEDS: FOLIC ACID 1 MG TAB PO SCH (08:36)
[2019-05-16] MEDS ORDERED: INSULIN GLARGINE SOLOSTAR 100 UNITS/ML 3 ML PEN SC SCH ×2 (09:00)
--- NOTE | 2019-05-16 09:14 | Hospitalist Progress Note ---
Date of Service May 16, 2019 Assessment & Plan (1) Severe hyperglycemia due to diabetes mellitus: Type 1 DM very poorly controlled A1c 14% (05/14/19) medication non compliance multiple recent admissions with similar situation -hyperglycemia /DKA pt reports of not able to afford Basalglar Insulin pen ( does not have medical insurance ) has been rationing his insulin BSG > 400 , with betahydroxy butyrate > 18 pt stated on IV insulin gtt ,IV hydration appreciate pharmacy input for glycemic management pt will be switched to insulin 70/30 , so he can utilize Relion insulin 70/30 with is quite affortable $ 25 pt is counselled regarding diabetic management risk of developing end stage renal disease -dialysis in future /vision loss /stroke /heart attack if blood sugar is not adequately controlled pt verbalized understanding staff educator consulted appreciate input pt is scheduled to follow up at [facility] diabetic /endocrine clinic next week appreciate input from pharmacy glycemic management PLAN FOR DISCHARGE: Continue Basaglar + Novolog + metformin (until home supply runs out) Basaglar 50 units SQ once daily in the morning Novolog 14 units SQ three times daily with meals (administer only 7 units if less than half of meal is consumed) When patient is ready to transition to Novolin 70/30, recommend: Novolin 70/30 flexpen 55 units SQ with breakfast and 25 units SQ with dinner (2) Diabetes: Type 1 DM , poorly controlled presented with hyperglycemia management as discussed above full code DISPOSITION : will be discharged home today with above change in Insulin Subjective pt reports of feeling better very anxious to be discharged home off insulin gtt since this AM counselling provided regarding appropriate use of insulin .medication compliance Insulin changed to RElion ( [employer] ) Novolin 70/30 which is quite affordable -vial of insulin cost &25$/insulin flex pen $50 pt says he would prefer to use flex Pen /his parents are planning to pay for his insulin and all diabetic supplies Physical Exam Constitutional: WD/WN, vitals as above no acute distress ENMT: external ear and nose normal, oropharynx normal Neck: trachea midline, no thyromegaly Respiratory: normal respiratory effort, lungs clear to auscultation Cardiovascular: RRR, no murmur, no edema Gastrointestinal (Abdomen): normal bowel sounds, soft, nontender, no hepatosplenomegaly Musculoskeletal: no cyanosis or clubbing, extremities motor strength 5/5 Skin: no rashes, warm and dry Neurologic: PERRL, EOMI, accommodation nl, no face palsy, no dysarthria Psychiatric: A+Ox3, euthymic affect Results & Data Vital Signs (Past 12 Hours) Vital Signs Temp Pulse Resp BP BP Pulse Ox 05/16/19 07:25 36.3 C L 56 L 18 101/63 96 05/16/19 03:09 36.5 C 69 18 108/72 95 05/15/19 22:30 36.7 C 79 18 99/64 L 97 (1) Diabetes Diabetes mellitus complication status: with hyperglycemia Diabetes mellitus type: type 1 Qualified Code(s): E10.65 - Type 1 diabetes mellitus with hyperglycemia
[2019-05-16] MEDS ORDERED: INSULIN ASPART 100 UNITS/ML 3 ML PEN SC ONE (09:15)
--- NOTE | 2019-05-16 09:35 | Pharmacy Report ---
Pharmacy Glycemic Short Note 2 - Date of Service May 16, 2019 - Glycemic Short BSG Results (Last 24 hours): 05/14/19 05/14/19 05/14/19 20:21 20:28 22:16 Glucose POC Glucose > 600 H* > 600 H* > 600 H* 05/15/19 05/15/19 05/15/19 07:32 10:14 11:02 Glucose POC Glucose 280 H 360 H* 351 H* 05/15/19 05/15/19 05/15/19 12:08 12:10 12:12 Glucose POC Glucose 83 303 H* 311 H* 05/15/19 05/15/19 05/15/19 13:08 14:04 14:40 Glucose 399 H* POC Glucose 352 H* 395 H* 05/15/19 05/15/19 05/15/19 15:07 16:04 17:09 Glucose POC Glucose 375 H* 261 H 251 H 05/15/19 05/15/19 05/15/19 18:05 19:07 20:32 Glucose POC Glucose 246 H 172 H 227 H 05/15/19 05/15/19 05/15/19 21:34 22:34 23:32 Glucose POC Glucose 292 H 267 H 200 H 05/16/19 05/16/19 05/16/19 01:08 02:00 03:01 Glucose POC Glucose 155 H 139 H 133 H 05/16/19 05/16/19 05/16/19 04:14 05:04 06:03 Glucose POC Glucose 161 H 161 H 153 H OUTPATIENT ANTIDIABETIC REGIMEN: * Basaglar 40u QAM, Novolog 12u TIDM, Metformin -> not taken as prescribed * A1c = 14 % 05/14/19 ASSESSMENT: * Abdiel is a 24yo M type I diabetic. He was diagnosed with type I diabetes in April 2018. PMHx consistent with: PTSD, YISEL. * Admitted with severe hyperglycemia. Glycemic control has improved after administration of IV insulin infusion (overlapped with basal insulin). I will discontinue IV insulin infusion at this time per BSG at goal since 1 AM. Will resume lantus + novolog for now. * Patient had discussion with both pharmacist and [facility] regarding non compliance with home insulin regimen due to cost with his insurance. * Plan is for patient to transition to Novolin 70/30 Flexpen with breakfast and dinner meals once he runs out of Basaglar/Novolog (pt has ~1 month supply left). PLAN FOR INPATIENT GLYCEMIC CONTROL: * Hold outpatient oral diabetes medications * Basal insulin * Lantus 50 units SQ qAM * Bolus insulin * NovoLog per scale ACHS or Q6hrs while NPO * Goal Range: Low 120 mg/dL - High 150 mg/dL * Correction Factor: 15 mg/dL/unit * Nutritional / Prandial insulin per carb ratio of 1 unit per 5 grams CHO consumed PLAN FOR DISCHARGE: * A1c 14% (05/14/19) * Continue Basaglar + Novolog + metformin (until home supply runs out) * Basaglar 50 units SQ once daily in the morning * Novolog 14 units SQ three times daily with meals (administer only 7 units if less than half of meal is consumed) * When patient is ready to transition to Novolin 70/30, recommend: * Novolin 70/30 flexpen 55 units SQ with breakfast and 25 units SQ with dinner please note, discharge recommendations are based on minimal BSG data (patient admitted less than 48 hours, he was an IV insulin infusion for the majority of this time and home dose is unreliable, therefore doses will require adjustment). Prompt follow up with outpatient provider is highly recommended.
[2019-05-16] MEDS ORDERED: INSULIN HUMAN REGULAR PER UNIT 9 UNITS in SYRINGE 8.91 ML IV ONE (11:45)
--- NOTE | 2019-05-16 14:29 | Discharge Summary ---
Date of Service May 16, 2019 Admission HPI Per Admitting Provider DICTATED BY: Molina Park MD DATE OF ADMISSION: 05/14/2019 CHIEF COMPLAINT: Hyperglycemia. HISTORY OF PRESENT ILLNESS: A 24-year-old male with past medical history significant for type 1 diabetes diagnosed in April 2018, generalized anxiety disorder, posttraumatic stress disorder, presents with hyperglycemia. 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 He says in the process he lost his insurance and his also works and he is having a lot of financial stress and he is supposed to take Basaglar insulin 40 units daily and NovoLog 10 units t.i.d., but he is saying he is missing his Basaglar insulin. He takes it every alternate day to save the cost and a few days ago, he felt somewhat nauseous, but today he felt somewhat dizzy, not feeling well, and his blood sugar in the monitors was reading high, so he came to the ER and his blood sugar was found to 850, but the patient is not in DKA. He was tearful and he wanted to get discharged because he has to baby sit his daughter and his has job tomorrow and he does not want his to lose job as they are already in financial stress. The was also in the room. He wanted to sign out AMA, but later decided to stay in the hospital. His is going to call her workplace tomorrow for leave. He had some headache earlier. No blurred vision, no earache, no runny nose, no sore throat, no chest pain, no shortness of breath, no cough, no fever, no chills, no nausea, no abdominal pain currently. Normal bowel movements, no blood in stools or black stools, no hematuria. He has had frequent urination. No rash. Currently resting comfortably and hemodynamically stable.Supposed to see endocrinology but missed appointment.Not following with family doctor. Principal Diagnosis Type 1 diabetes, poorly controlled Discharge Exam Constitutional WD/WN, vitals as above no acute distress ENMT external ear and nose normal, oropharynx normal Neck trachea midline, no thyromegaly Respiratory normal respiratory effort, lungs clear to auscultation Cardiovascular RRR, no murmur, no edema Gastrointestinal (Abdomen) normal bowel sounds, soft, nontender, no hepatosplenomegaly Musculoskeletal no cyanosis or clubbing, extremities motor strength 5/5 Skin no rashes, warm and dry Neurologic PERRL, EOMI, accommodation nl, no face palsy, no dysarthria Psychiatric A+Ox3, euthymic affect Discharge Data Allergies Allergy/AdvReac Type Severity Reaction Status Date / Time No Known Allergies Allergy Verified 05/14/19 20:53 Consultations 05/14/19 22:20 ED Decision to Admit Stat 05/15/19 00:13 Consult Case Management - Discharge Planning Routine Hospital Course (1) Severe hyperglycemia due to diabetes mellitus: Type 1 DM very poorly controlled A1c 14% (05/14/19) medication non compliance multiple recent admissions with similar situation -hyperglycemia /DKA pt reports of not able to afford Basalglar Insulin pen ( does not have medical insurance ) has been rationing his insulin BSG > 400 , with betahydroxy butyrate > 18 pt stated on IV insulin gtt ,IV hydration appreciate pharmacy input for glycemic management pt will be switched to insulin 70/30 , so he can utilize Relion insulin 70/30 with is quite affortable $ 25 pt is counselled regarding diabetic management risk of developing end stage renal disease -dialysis in future /vision loss /stroke /heart attack if blood sugar is not adequately controlled pt verbalized understanding 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 appreciate input pt is scheduled to follow up at [facility] diabetic /endocrine clinic next week appreciate input from pharmacy glycemic management PLAN FOR DISCHARGE: Continue Basaglar + Novolog + metformin (until home supply runs out) Basaglar 50 units SQ once daily in the morning Novolog 14 units SQ three times daily with meals (administer only 7 units if less than half of meal is consumed) When patient is ready to transition to Novolin 70/30, recommend: Novolin 70/30 flexpen 55 units SQ with breakfast and 25 units SQ with dinner (2) Diabetes: Type 1 DM , poorly controlled presented with hyperglycemia management as discussed above full code DISPOSITION : will be discharged home today with above change in Insulin Total Time Total Time Spent Total Time Spent (In Minutes): approx 40 mins Total Time Includes: Examination of the Patient, Discharge Planning, Medication Reconciliation and Communication With Other Providers Discharge Plan Discharge Items Patient Disposition: Home - Self-Care Reason For Visit: HYPERGLYCEMIA Discharge Diagnosis: TYPE 1 DIABETES , POORLY CONTROLLED Activity: Resume your previous activity Non-emergency contact: Primary Care Provider Call non-emergency contact if: you have any medication questions Follow-up/Referrals: Vance Buitrago MD [Primary Care Provider] - Diet: Carb Count or DM1 Addtl Attending Provider Instructions: IT IS VERY IMPORTANT TO TAKE INSULIN INSTRUCTED A1c 14% (05/14/19) -MEANING EVERY ON AVERAGE YOUR BLOOD SUGAR HAS BEEN AROUND 350 YOU ARE IN HIGH RISK TO DEVELOP DIABETES COMPLICATIONS( RENAL FAILURE /LOSS OF VISION/STROKE /HEART ATTACK/NERVE DAMAGE ) IF YOU BLOOD SUGARS ARE NOT WELL CONTROLLED FOLLOW UP AT THE DIABETIC CLINIC PLEASE CHECK BLOOD SUGAR AT LEAST TWICE DAILY -BEFORE BREAKFAST AND BEFORE SUPPER PLEASE KEEP LOG OF THE BLOOD SUGAR RECORDS AND BRING WITH NEXT OFFICE VISIT /DIABETES CLINIC FOLLOW UP INSULIN REGIMEN FOR DISCHARGE: Continue Basaglar + Novolog + metformin (until home supply runs out) Basaglar 50 units SQ once daily in the morning Novolog 14 units SQ three times daily with meals (administer only 7 units if less than half of meal is consumed) When ready to transition to Novolin 70/30: Take Novolin 70/30 flexpen 55 units SQ with breakfast and 25 units SQ with dinner Pending Studies at Discharge: No Stand-Alone Forms: My [employer], Smoking Cessation Medications and DC Order Prescriptions: New Novolin 70-30 FlexPen U-100 100 unit/mL (70-30) insulin pen 55 units SQ UD Qty: 15 RF: 6 Continued (DME) pen needle, diabetic [Easy Comfort Pen Mccoll] 31 gauge x 3/16" needle See Dose Instructions .ROUTE .MEDSUPPLY Qty: 30 RF: 0 (DME) blood-glucose meter [OneTouch Verio Flex] misc See Dose Instructions .ROUTE .MEDSUPPLY Qty: 1 RF: 0 (DME) OneTouch Verio strip See Dose Instructions .ROUTE .MEDSUPPLY Qty: 10 RF: 0 albuterol sulfate [ProAir HFA] 90 mcg/actuation HFA aerosol inhaler 2 puffs INH Q6H PRN (Reason: Shortness Of Breath) RF: 0 metformin 500 mg tablet 500 mg PO BID RF: 0 sertraline 50 mg tablet 50 mg PO HS RF: 0 Novolog Flexpen U-100 Insulin 100 unit/mL (3 mL) insulin pen 12 units SQ TID RF: 0 Basaglar KwikPen U-100 Insulin 100 unit/mL (3 mL) insulin pen 40 unit SUBCUT QAM RF: 0 folic acid 1 mg Tablet 1 mg PO DAILY RF: 0 Discharge Orders: Discharge Order (Routine); Ordered 05/16/19 Ordered By: Anabell Yo Admission Data Admit Date/Time: 05/14/19 23:26 Attending Provider: Anabell Yo Admit Provider: Molina Park Primary Care Provider: Vance Buitrago Other Providers: Molina Park
== END 2019-05-16 15:43 | disposition home or self-care (01) | DRG 638 ==
LOC: ED 20:00 → 2S 23:26